=== PATIENT | female | born 1950 | race Caucasian/White ===

== ENCOUNTER 2022-09-20 13:48 | Outpatient (OUT) | payer MEDICARE, SELFPAY ==
[2022-09-20 17:07] LABS: Anion Gap 13.3; BUN Creatinine Ratio 21.9; Calcium 8.8 mg/dL (8.5-10.1); Carbon Dioxide 26.5 mmol/L (21.0-32.0); Chloride 97 mmol/L (98-107); Estimated GFR (African America >60 (>=60); Estimated GFR (Non-African Ame >60 (>=60); Glucose 83 mg/dL (74-106); Potassium 4.8 mmol/L (3.5-5.1); Sodium 132 mmol/L (136-145)
== END 2022-09-20 13:49 | disposition home or self-care (01) ==
LOC: LAB 01-11 13:50
PROVIDERS: Internal Medicine; PCP Family Medicine
DX: Z00.00 Encounter for general adult medical examination without abnormal findings (principal); R94.31 Abnormal electrocardiogram [ECG] [EKG]; Z68.23 Body mass index [BMI] 23.0-23.9, adult; I50.9 Heart failure, unspecified
CPT/HCPCS: 36415; 80048

== ENCOUNTER 2022-10-18 13:51 | Outpatient (OUT) | payer MEDICARE, SELFPAY ==
[2022-10-18 11:29] LABS: Anion Gap 11.8; BUN Creatinine Ratio 17.6; Calcium 8.9 mg/dL (8.5-10.1); Carbon Dioxide 25.7 mmol/L (21.0-32.0); Chloride 99 mmol/L (98-107); Estimated GFR (African America >60 (>=60); Estimated GFR (Non-African Ame >60 (>=60); Glucose 103 mg/dL (74-106); Potassium 4.5 mmol/L (3.5-5.1); Sodium 132 mmol/L (136-145)
== END 2022-10-18 13:52 | disposition home or self-care (01) ==
LOC: LAB 01-11 13:52
PROVIDERS: PCP Family Medicine
DX: I50.9 Heart failure, unspecified (principal); E87.6 Hypokalemia; E87.1 Hypo-osmolality and hyponatremia
CPT/HCPCS: 36415; 80048; 83880

== ENCOUNTER 2022-12-20 07:06 | Outpatient (RCR) | payer MEDICARE, SELFPAY ==
--- NOTE | 2022-08-30 | CR1_ITS ---
The [facility] Test Date: 2022-08-30 Pat Name: Arianna Briceno Department: Room: - Gender: Female [employer] Attendant: : 1950 Requested By: KEYLA TEJEDA Order Number: [id number] Efraín MD: KEYLA TEJEDA Interpretive Statements Session Date: Electronically Signed On 08-31-2022 20:58:53 EDT by KEYLA TEJEDA
--- NOTE | 2022-08-30 12:21 | CR1_ITS ---
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
--- NOTE | 2022-08-30 12:24 | CR1_ITS ---
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
--- NOTE | 2022-09-28 11:04 | CR1_ITS ---
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
--- NOTE | 2022-10-26 08:18 | CR1_ITS ---
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
--- NOTE | 2022-11-23 15:21 | CR1_ITS ---
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
== END 2022-12-20 14:50 | disposition home or self-care (01) ==
LOC: CR 07:06
PROVIDERS: PCP Internal Medicine; Visit Provider Internal Medicine
DX: I50.22 Chronic systolic (congestive) heart failure (principal)
CPT/HCPCS: 36415; 80048; 83880; 93797; 93798

== ENCOUNTER 2022-12-27 10:40 | Outpatient (OUT) | payer MEDICARE, SELFPAY ==
[2022-12-27 11:13] LABS: Anion Gap 11.7; BUN Creatinine Ratio 12.7; Calcium 8.3 mg/dL (8.5-10.1); Carbon Dioxide 21.6 mmol/L (21.0-32.0); Chloride 96 mmol/L (98-107); Estimated GFR (African America >60 (>=60); Estimated GFR (Non-African Ame >60 (>=60); Glucose 98 mg/dL (74-106); Potassium 4.3 mmol/L (3.5-5.1); Sodium 125 mmol/L (136-145)
== END 2022-12-27 10:41 | disposition home or self-care (01) ==
LOC: LAB 10:42
PROVIDERS: PCP Family Medicine
DX: I50.9 Heart failure, unspecified (principal); N18.32 Chronic kidney disease, stage 3b
CPT/HCPCS: 36415; 80048

== ENCOUNTER 2023-09-18 10:12 | Outpatient (OUT) | payer MEDICARE, SELFPAY ==
--- OUTSIDE RECORDS SUMMARY | 2023-09-18 10:20 | XMS_ITS | CCD ---
Author Organization [facility] Care Team Providers Care Director Of Physical Therapy Name Role Phone UNKNOWN, PHYSICIAN Referring Unavailable UNKNOWN, PHYSICIAN Primary Care Unavailable ADARSH FERNANDEZ Attending Unava ADARSH Perdomo Admitting Unava ilable Joe Callejas Unavailable Unavailable Unavailable MISC, DR DUNCAN Admitting Unavailable EVI MARADIAGA Primary Care Unavailable MISC, DR DUNCAN Attending Unavailable MISC, DR DUNCAN Consulting Unavailable MISC, DR DUNCAN Admitting Unavailable SHAIKH Andrew RIOS Primary Care Unavailable MISC, DR DUNCAN Attending Unavailable MISC, DR DUNCAN Consulting Unavailable ALE MOSQUERA Attending Unavailable Herber, Dr. Joe Vaughn Primary Care Unava YAHIR Ho Primary Care Provider DO Nishant Lucio Emergency Provider Dr. Ale Mosquera Attending Unavailable Demetri, Dr. Aguilera Referring Unavailable Herber, Dr. Joe Vaughn Primary Care Unava ilable Dr. Ale Mosquera Attending Unavailable Demetri, Dr. Aguilera Referring Unavailable Herber, Dr. Joe Vaughn Primary Care Nae ilDr. Ale Smith Attending Unavailable Dr. Ale Mosquera Referring Unavailable Herber, Dr. Joe Vaughn Primary Care Romava ilDr. Ale Smith Attending Unavailable Demetri, Dr. Aguilera Referring Unavailable Herber, Dr. Joe Vaughn Primary Care Unava ilable ArsenYonas hernandezbenito Unavailable Joe Callejas DO Primary Care Provider YAHIR Maradiaga Primary Care Provider DO Aleida Cisneros Emergency Provider [phone] MD Phyllis Burciaga Admit Provider MD Phyllis Burciaga Attending Provider MD Toya Pack Other Provider MD Ernesto Polo Other Provider Maile Hall Admitting Unavailable Maile Hall Attending Unavailable Evi Maradiaga Primary Care Unavailable Toya Pack Consulting Unavailable Evi Maradiaga Primary Care Unavailable Phyllis Burciaga Admitting Unavailable Phyllis Burciaga Attending Unavailable Ernesto Polo Consulting Unavailable Evi Maradiaga Primary Care Unavailable Sabrina Zapata Attending Unavailable Jonathan Bhakta Admitting Unavailable Maile Hall Consulting Unavailable Nishant Lucio Admitting Unavailable Nishant Lucio Attending Unavailable Evi Maradiaga Primary Care Unavailable ALE MOSQUERA Attending Unavailable JOE CALLEJAS Primary Care Unavailab ALE Benavides Attending Unavailable ALE MOSQUERA Referring Unavailable CLAUDIOLOLÓPEZ, JOE VAUGHN Primary Care Unavailab ALE Benavides Referring Unavailable EVI MARADIAGA Primary Care Unavailable ALE MOSQUERA Referring Unavailable MARLENE MARADIAGAE Christina Primary Care Unavailable Hiren BELL VALET-RAND CEMENTEREvi Primary Care Provid er EVI MARADIAGA Referring Unavailable MARLENE MARADIAGAE Christina Primary Care Unavailable EVI MARADIAGA Referring Unavailable EVI MARADIAGA Primary Care Unavailable IVÁN SAPP Attending Unavailable IVÁN SAPP Referring Unavailable IVÁN SAPP Attending Unavailable IVÁN SAPP Referring Unavailable IVÁN SAPP Attending Unavailable IVÁN SAPP Referring Unavailable IVÁN SAPP Attending Unavailable EVI MARADIAGA Attending Unavailable EVI MARADIAGA Referring Unavailable EVI MARADIAGA Primary Care Unavailable EVI MARADIAGA Attending Unavailable EVI MARADIAGA Referring Unavailable EVI MARADIAGA Primary Care Unavailable Medications Current Medications Medication Drug Class(es) Dates Sig (Normalized) Sig (Original) carvedilol 25 mg oral tablet (20 sources) alpha-Adrenergic Jeff, beta-Adrenergic Jeff Start: 09-19-2022 take 1 tablet by mouth in the morning, then take 1 tablet by mouth at bedtime carvediloL (COREG) 25 mg tablet Take 1 tablet (25 mg total) by mouth in the morning and 1 tablet (25 mg total) before bedtime. 0 09/20/2022 Active Start: 09-04-2022 End: 03-05-2023 take 1 tablet by mouth twice daily carvedilol (Coreg) 12.5 mg tablet Take 1 tablet (12.5 mg) by mouth 2 times a day. 0 09/04/2022 03/05/2023 Discontinued (Dose adjustment) Start: 07-04-2022 take 25 mg by mouth twice edilson y Carvedilol Active 25 MG PO Twice daily July 03, 2022 11:00pm Start: 05-04-2022 take 6.25 mg by mout h twice daily Carvedilol Active 6.25 MG PO Twice daily July 04, 2022 12:00am Start: 08-04-2021 Carvedilol 3.1 25 MG Oral Tablet Quantity: 60 Refills: 0 Ordered: 04-Aug-2021 DO Start : 04-Aug-2021 Complete take 1 tablet by sailaja th once daily in the morning carvedilol (Coreg) 25 mg tablet Take 1 tablet (25 mg) by mouth once daily in the morning. 0 Active digoxin 0.125 mg oral tablet (11 sources) Cardiac Glycoside Start: 10-16-2022 take 1 tablet by mouth once daily digoxin (LANOXIN) 125 mcg tablet TAKE 1 TABLET BY MOUTH ONCE DAILY 3 DAYS A WEEK. 0 10/16/2022 Active Start: 10-16-2022 Digoxin 125 MC G Oral Tablet TAKE 1 TABLET 3 DAYS A WEEK Quantity: 36 Refills: 3 Ordered: 14-Dec-2022 Ale Mosquera MD Start : 16-Oct-2022 Active Digoxin 125 MCG 1 tablet Orally THREE DAYS A WEEK Active hydrALAZINE hydrochloride 25 mg oral tablet (8 sources) Arteriolar Vasodilator Start: 04-05-2023 End: 04-04-2024 take 1 tablet by mouth in the morning, then take 1 tablet by mouth at bedtime hydrALAZINE (APRESOLINE) 25 mg tablet Take 1 tablet (25 mg total) by mouth in the morning and 1 tablet (25 mg total) before bedtime. 0 04/05/2023 04/04/2024 Active Start: 03-05-2023 End: 03-04-2024 take 1 tablet by mouth three times daily hydrALAZINE (Apresoline) 25 mg tablet Indications: CHF (NYHA class II, ACC/AHA stage C) (CMS/HCC) , Benign hypertensive heart disease with heart failure (CMS/HCC) Take 1 tablet (25 mg) by mouth 3 times a day. 270 tablet 3 03/05/2023 04/05/2023 Discontinued (Dose adjustment) melatonin 10 mg oral tablet (17 sources) Start: 07-04-2022 End: 03-16-2023 melatonin 10 mg tablet 1 1e1 1 [employer]. 0 07/04/2022 Active Melatonin 10 MG Oral Tablet as needed Quantity: 0 Refills: 0 Ordered: 17-Jul-2022 DO Active potassium chloride 20 meq extended release oral tablet (18 sources) Start: 03-17-2023 take 20 mEq by mouth once daily Potassium Chloride Active 20 MEQ PO Daily March 17, 2023 2:14pm Start: 03-16-2023 End: 03-17-2023 take 20 mEq by mouth twice daily Potassium Chloride Discontinued 20 MEQ PO Twice daily March 16, 2023 12:00am March 17, 2023 3:33pm Start: 07-17-2022 take 1 tablet by sailaja th in the morning potassium chloride (KLOR-CON M 20) 20 MEQ CR tablet Take 1 tablet (20 mEq total) by mouth in the morning and 1 tablet (20 mEq total) before bedtime. 0 07/17/2022 Active Start: 07-17-2022 take 1 tablet by sailaja th twice daily potassium chloride CR 20 mEq ER tablet Take 1 tablet (20 mEq) by mouth 2 times a day. 0 07/17/2022 Active take 1 tablet by sailaja th every twenty-four hours Potassium Chloride ER 20 MEQ 1 tablet with food Orally Once a day Active sertraline 50 mg oral tablet (14 sources) Serotonin Reuptake Inhibitor Start: 11-07-2022 End: 05-30-2023 take 1 tablet by mouth in the morning sertraline (ZOLOFT) 50 mg tablet Indications: Current moderate episode of major depressive disorder without prior episode ([facility]) Take 1 tablet (50 mg total) by mouth in the morning. 90 tablet 1 05/30/2023 Active Start: 06-12-2022 End: 07-08-2022 take 50 mg by mouth once daily Sertraline Discontinued 50 MG PO Daily July 03, 2022 11:00pm July 08, 2022 12:17pm simvastatin 5 mg oral tablet (1 source) HMG-CoA Reductase Inhibitor Start: 06-11-2023 take 1 tablet by mouth once daily simvastatin (ZOCOR) 5 mg tablet Indications: Mixed hyperlipidemia Take 1 tablet (5 mg total) by mouth nightly. 90 tablet 2 06/11/2023 Active Urea (1 source) Start: 01-23-2023 Urea 15 GM as directed Orally Once a day for 90 days Dec, Active Completed/Discontinued Medications Medication Drug Class(es) Dates Sig (Normalized) Sig (Original) acetaminophen 500 mg oral tablet (3 sources) Start: 07-04-2022 End: 03-16-2023 take 1000 mg by mouth twice daily Acetaminophen Discontinued 1000 MG PO Twice daily July 03, 2022 11:00pm March 16, 2023 2:35pm codeine phosphate 2 mg/ml / guaiFENesin 20 mg/ml oral solution (3 sources) Opioid Agonist Start: 05-09-2022 guaiFENesin-Codeine 100-10 MG/5ML Oral Solution Quantity: 30 Refills: 0 Ordered: 09-May-2022 DO Start : 09-May-2022 Complete furosemide 20 mg oral tablet (14 sources) Loop Diuretic Start: 09-04-2022 take 0.5 tablet by mouth once daily Furosemide 20 MG Oral Tablet TAKE 1/2 TABLET DAILY. Quantity: 45 Refills: 3 Ordered: 04-Sep-2022 Ale Mosquera MD Start : 04-Sep-2022 Active dose decrease Start: 07-08-2022 End: 03-16-2023 take 1 tablet by mouth once daily, then take 8 tablets by mouth in the morning furosemide (LASIX) 20 mg tablet TAKE 1 TABLET BY MOUTH ONCE DAILY 8 IN THE MORNING 0 07/08/2022 Active isosorbide dinitrate 10 mg oral tablet (4 sources) Nitrate Vasodilator Start: 03-05-2023 End: 03-04-2024 take 1 tablet by mouth twice daily isosorbide dinitrate (Isordil) 10 mg tablet Indications: CHF (NYHA class II, ACC/AHA stage C) (CMS/[facility]) , Benign hypertensive heart disease with heart failure (CMS/HCC) Take 1 tablet (10 mg) by mouth 2 times a day. 180 tablet 3 03/05/2023 04/05/2023 Discontinued (Side effects) nystatin 120284 unt/ml topical cream (1 source) Polyene Antifungal Start: 07-24-2022 End: 05-30-2023 nystatin (MYCOSTATIN) cream Indications: Vaginal adriana Apply 1 Application topically every 12 (twelve) hours as needed (itching). 30 g 0 07/24/2022 05/30/2023 Discontinued (Therapy completed) ondansetron 4 mg oral tablet (3 sources) Serotonin-3 Receptor Antagonist Start: 10-12-2021 Ondansetron HCl - 4 MG Oral Tablet Quantity: 20 Refills: 0 Ordered: 12-Oct-2021 DO Start : 12-Oct-2021 Complete predniSONE 10 mg oral tablet (3 sources) Start: 05-09-2022 predniSONE 10 MG Oral Tablet Quantity: 4 Refills: 0 Ordered: 09-May-2022 DO Start : 09-May-2022 Complete sodium chloride 1000 mg oral tablet (6 sources) Start: 07-04-2022 End: 07-08-2022 take 1000 mg by mouth twice daily Sodium Chloride Discontinued 1000 MG PO Twice daily July 03, 2022 11:00pm July 08, 2022 12:17pm Start: 01-11-2022 take 1 tablet by sailaja twice daily at bedtime Sodium Chloride 1 GM Oral Tablet TAKE 1 TABLET BY MOUTH TWICE DAILY (IN THE MORNING AND AT BEDTIME) Quantity: 60 Refills: 0 Ordered: 22-Jun-2022 DO Start : 11-Jan-2022 Complete spironolactone 25 mg oral tablet (7 sources) Aldosterone Antagonist Start: 07-04-2022 End: 07-08-2022 take 25 mg by mouth once daily Spironolactone Discontinued 25 MG PO Daily July 03, 2022 11:00pm July 08, 2022 12:17pm Start: 04-21-2022 Spironolactone 25 MG Oral Tablet Quantity: 90 Refills: 0 Ordered: 21-Apr-2022 DO Start : 21-Apr-2022 Complete valsartan 80 mg oral tablet (17 sources) Angiotensin 2 Receptor Jeff Start: 03-16-2023 End: 03-17-2023 take 80 mg by mouth once daily Valsartan Discontinued 80 MG PO Daily March 16, 2023 12:00am March 17, 2023 3:33pm Start: 11-03-2022 End: 05-30-2023 take 1 tablet by mouth in the morning valsartan (DIOVAN) 160 mg tablet Take 1 tablet (160 mg total) by mouth in the morning. 0 11/03/2022 05/30/2023 Discontinued (Therapy completed) Start: 08-08-2022 take 1 tablet by sailaja once daily Valsartan 160 MG Oral Tablet TAKE 1 TABLET DAILY. Quantity: 90 Refills: 3 Ordered: 08-Aug-2022 Ale Mosquera MD Start : 08-Aug-2022 Active Start: 07-17-2022 End: 03-05-2023 take 1 tablet by mouth once daily Valsartan 80 MG Oral Tablet TAKE 1 TABLET DAILY. Quantity: 90 Refills: 3 Ordered: 14-Dec-2022 Ale Mosquera MD Start : 14-Dec-2022 Active reduce dose Start: 09-01-2021 Valsartan 40 M G Oral Tablet Quantity: 180 Refills: 0 Ordered: 01-Sep-2021 DO Start : 01-Sep-2021 Complete take 2 tablets by mo [facility] every twenty-four hours Valsartan 80 MG 2 tablet Orally Once a day Active Problems Active Problems Problem Classification Problem Date Documented Date Episodic/Chronic Abdominal pain (3 sources) Flank pain; Translations: [Unspecified abdominal pain] Onset: 05-30-2023 05-30-2023 Episodic Acute myocardial infarction (3 sources) Myocardial infarction; Translations: [Non-ST elevation (NSTEMI) myocardial infarction] Onset: 10-11-2021 10-11-2021 Chronic Bacterial infection; unspecified site (1 source) Other specified bacterial agents as the cause of diseases classified elsewhere; Translations: [Other specified bacterial agents as the cause of diseases classified elsewhere] Onset: 08-01-2023 Episodic Cardiac dysrhythmias (4 sources) Ventricular tachycardia; Translations: [Ventricular tachycardia] 07-24-2022 Chronic Chronic kidney disease (8 sources) Chronic kidney disease stage 3B ; Translations: [Chronic kidney disease, Stage III (moderate)] Onset: 03-02-2023 03-02-2023 Chronic Chronic kidney disease (3 sources) Chronic kidney disease; Translations: [Chronic kidney disease, stage 3b (CMS/HCC)] Onset: 03-02-2023 Conduction disorders (12 sources) Left bundle branch block; Translations: [Other left bundle branch block] Onset: 07-25-2021 03-05-2023 Chronic Congestive heart failure; nonhypertensive (20 sources) Congestive heart failure; Translations: [Systolic heart failure, unspecified] Onset: 10-27-2021 Chronic Coronary atherosclerosis and other heart disease (8 sources) Arteriosclerotic vascular disease; Translations: [Atherosclerotic heart disease of [place] coronary artery without angina pectoris] Onset: 10-27-2021 10-27-2021 Chronic Deficiency and other anemia (1 source) Anemia, unspecified Episodic Disorders of lipid metabolism (4 sources) Mixed hyperlipidemia; Translations: [Mixed hyperlipidemia] Onset: 05-30-2023 05-30-2023 Chronic Essential hypertension (11 sources) Hypertensive disorder; Translations: [Unspecified essential hypertension] Onset: 03-16-2023 03-17-2023 Chronic Headache; including migraine (3 sources) Headache; Translations: [Headache] 07-04-2022 Episodic Headache; including migraine (1 source) Headache; including migraine; Translations: [Headache, unspecified] Onset: 07-05-2022 Hypertension with complications and secondary hypertension (13 sources) Hypertensive heart disease with heart failure; Translations: [Benign hypertensive heart disease] Onset: 08-14-2022 Chronic Mood disorders (8 sources) Depressive disorder; Translations: [Depression] Onset: 07-24-2022 07-06-2022 Chronic Other aftercare (12 sources) Treatment changed; Translations: [Long-term (current) use of other medications] Onset: 03-05-2023 03-05-2023 Episodic Other aftercare (1 source) Post-discharge follow-up; Translations: [Other follow-up examination] Episodic Other aftercare (3 sources) Other residential (current) drug therapy; Translations: [Other residential (current) drug therapy] Onset: 03-05-2023 Episodic Other lower respiratory disease (1 source) Cough Onset: 08-01-2023 Episodic Other nutritional; endocrine; and metabolic disorders (3 sources) Hypomagnesemia; Translations: [Hypomagnesemia] Onset: 10-11-2021 10-11-2021 Chronic Other nutritional; endocrine; and metabolic disorders (3 sources) H/O: endocrine disorder; Translations: [Personal history of other endocrine, nutritional and metabolic disease] 07-06-2022 Episodic Other upper respiratory infections (2 sources) Acute sinusitis, unspecified; Translations: [Upper respiratory infection] Onset: 08-01-2023 Episodic Puja-; endo-; and myocarditis; cardiomyopathy (except that caused by tuberculosis or sexually transmitted disease) (6 sources) Cardiomyopathy; Translations: [Cardiomyopathy, unspecified] Onset: 07-07-2021 07-07-2021 Chronic Residual codes; unclassified (9 sources) Body mass index 20-24 - normal; Translations: [Body Mass Index between 19-24, adult] Episodic Residual codes; unclassified (3 sources) Confusional state; Translations: [Disorientation, unspecified] 07-04-2022 Episodic Syncope (5 sources) Near syncope; Translations: [Syncope and collapse] Onset: 03-16-2023 03-16-2023 Episodic Unclassified (1 source) Acute cough; Translations: [Acute cough] Onset: 08-01-2023 Unclassified (1 source) Ventricular tachycardia, unspecified; Translations: [Ventricular tachycardia, unspecified] Onset: 07-24-2022 Unclassified (1 source) Annual Exam Onset: 05-30-2023 Urinary tract infections (1 source) Acute cystitis without hematuria; Translations: [Acute cystitis without hematuria] Onset: 05-30-2023 Episodic Past or Other Problems Problem Classification Problem Date Documented Date Episodic/Chronic Fluid and electrolyte disorders (20 sources) Hyponatremia; Translations: [Hyposmolality and/or hyponatremia] Onset: 12-11-2021 Resolved: 05-30-2023 07-04-2022 Episodic Malaise and fatigue (6 sources) Asthenia; Translations: [Weakness] Onset: 07-05-2022 11-08-2022 Episodic Mood disorders (4 sources) Mood disorders; Translations: [Depression, unspecified] Onset: 07-05-2022 05-30-2023 Nausea and vomiting (3 sources) Nausea and vomiting; Translations: [Nausea with vomiting, unspecified] Onset: 10-10-2021 Resolved: 05-30-2023 05-30-2023 Episodic Nonspecific chest pain (3 sources) Chest pain; Translations: [Chest pain, unspecified] Onset: 10-10-2021 Resolved: 05-30-2023 05-30-2023 Episodic Other nutritional; endocrine; and metabolic disorders (1 source) Personal history of other endocrine, nutritional and metabolic disease; Translations: [Personal history of other endocrine, nutritional and metabolic disease] Onset: 08-09-2022 Episodic Other screening for suspected conditions (not mental disorders or infectious disease) (17 sources) Electrocardiogram abnormal; Translations: [Nonspecific abnormal electrocardiogram [ECG] [EKG]] Onset: 10-10-2021 Resolved: 05-30-2023 03-02-2023 Episodic Residual codes; unclassified (1 source) Disorientation, unspecified; Translations: [Disorientation, unspecified] Onset: 07-05-2022 Episodic Unclassified (9 sources) Patient status finding; Translations: [Patient new to provider] Unclassified (9 sources) Never smoked tobacco; Translations: [Never a smoker] Unclassified (5 sources) Onset: 05-09-2022 Resolved: 03-05-2023 03-05-2023 Results Test Name Value Interpretation Reference Range Facility Lipid 1996 panelon Cholesterol [Mass/Vol] 232 mg/dL High 150-200 Pr [facility] Comment on above: Performed By: #### 2 4331-1 #### [facility] ([id number]) [address] [place] [address], [address] [place] [address] Cholesterol in HDL [Mass/Vol] 60 mg/dL Normal >39 [facility] Comment on above: HDL <40 mg/dL - High Risk HDL > or = 40mg/dL- Desirable HDL >60 mg/dL - Negative Risk Result Comment: HDL <40 mg/dL - High Risk HDL > or = 40mg/dL- Desirable HDL >60 mg/dL - Negative Risk Performed By: #### 2 4331-1 #### [facility] ([id number]) [address] [facility] [address], [address] [place] [address] Cholesterol in LDL [Mass/Vol] 152 mg/dL High <130 [facility] Comment on above: LDL <100 mg/dL - Desirable LDL >160 mg/dL - High Risk Result Comment: LDL <100 mg/dL - Desirable LDL >160 mg/dL - High Risk Performed By: #### 2 4331-1 #### [facility] ([id number]) [facility] [facility] [address], [address] [place] [address] Cholesterol in VLDL [Mass/Vol] 20 mg/dL Normal 0-30 [facility] Comment on above: Performed By: #### 2 4331-1 #### [facility] ([id number]) [address] [facility], [address] [place] [address] Cholesterol.total/Chol esterol in HDL [Mass ratio] 3.9 {ratio} 1.0 - 5.0 [facility] Interpretation and review of laboratory results Abnormal [facility] Triglyceride [Mass/Vol] 98 mg/dL Normal 27-150 [facility] Comment on above: Performed By: #### 2 4331-1 #### [facility] ([id number]) [address] [facility] [facility] [address], [facility] [address] [place] [address] [facility] Lipid 1996 panelon CHOLESTEROL:HDL 3.9 Normal 1.0-5.0 [facility] Comment on above: Performed By: #### 2 4331-1 #### [facility] ([id number]) [address], [address] [place] [address] POCT urinalysis dipstick onl yon 05-30-2023 Appearance (U) clear [facility] External Poct Urine Bilirubin Negative [facility]ct Urine Blood Negative [facility]ct Urine Color yellow [facility] Urine Glucose Negative [facility]ct Urine Ketones Negative [facility] Urine Leukocyte Esterase Trace [facility] Urine Nitrite Negative [facility]ct Urine Ph 6.5 Pr [facility] External Poct Urine Protein Negative [facility] Poct Urine Specific [place] 1.010 [facility] External Poct Urine Urobilinogen 0.2 [facility] URINE CULTUREon 05-30-2023 Bacteria identified Cx Nom (U) CULTURE RESULTS 10-50,000 ORGANISMS/mL NORMAL UROGENITAL YINA Normal [facility] Comment on above: Performed By: #### 6 30-4 #### [facility] ([id number]) [address], [address] [place] [address] BASIC METABOLIC PANLon 05-01 Anion gap [Moles/Vol] 8 mmol/L Normal 5-15 [facility] Comment on above: Performed By: #### B MP #### [facility] ([id number]) [address], [address] [place] [address] Calcium [Mass/Vol] 9.2 mg/dL Normal 8.5-10.5 [facility] Comment on above: Performed By: #### B MP #### [facility] ([id number]) [address], [address] [place] [address] Chloride [Moles/Vol] 97 mmol/L Low 98-109 [facility] Comment on above: Performed By: #### B MP #### [facility] ([id number]) [address], [address] [place] [address] CO2 [Moles/Vol] 23 mmol/L Normal 22-32 [facility] Comment on above: Performed By: #### B MP #### [facility] ([id number]) [address], [address] [place] [address] Creatinine [Mass/Vol] 0.64 mg/dL Normal 0.40-1.00 [facility] Comment on above: Result Comment: METH OD TRACEABLE TO IDMS STANDARD Performed By: #### B MP #### [facility] ([id number]) [address], [address] [place] [address] eGFR (CKD-EPI) NON-RACE DEPENDENT >90 Normal >59 [facility] Comment on above: Result Comment: Reported eGFR is based on the CKD-EPI 2020 equation that does not use a race coefficient. Performed By: #### B MP #### [facility] ([id number]) [address], [address] [place] [address] Glucose [Mass/Vol] 93 mg/dL Normal 65-99 [facility] Comment on above: Performed By: #### B MP #### [facility] ([id number]) [address], [address] [place] [address] Potassium [Moles/Vol] 4.4 mmol/L Normal 3.5-5.0 [facility] Comment on above: Performed By: #### B MP #### [facility] ([id number]) [address], [address] [place] [address] Sodium [Moles/Vol] 128 mmol/L Low 134-146 [facility] Comment on above: Performed By: #### B MP #### [facility] ([id number]) [address], [address] [place] [address] Urea nitrogen [Mass/Vol] 7 mg/dL Normal 5-27 [facility] Comment on above: Performed By: #### B MP #### [facility] ([id number]) [address], [address] [place] [address] BASIC METABOLIC PANLon 03-29 Anion gap [Moles/Vol] 8 mmol/L Normal 5-15 [facility] Comment on above: Performed By: #### B MP #### [facility] ([id number]) [address], [address] [place] [address] Calcium [Mass/Vol] 8.9 mg/dL Normal 8.5-10.5 [facility] Comment on above: Performed By: #### B MP #### [facility] ([id number]) [address], [address] [place] [address] Chloride [Moles/Vol] 101 mmol/L Normal 98-109 [facility] Comment on above: Performed By: #### B MP #### [facility] ([id number]) [address], [address] [place] [address] CO2 [Moles/Vol] 25 mmol/L Normal 22-32 [facility] Comment on above: Performed By: #### B MP #### [facility] ([id number]) [address], [address] [place] [address] Creatinine [Mass/Vol] 0.64 mg/dL Normal 0.40-1.00 [facility] Comment on above: Result Comment: METH OD TRACEABLE TO IDMS STANDARD Performed By: #### B MP #### [facility] ([id number]) [address], [address] [place] [address] eGFR (CKD-EPI) NON-RACE DEPENDENT >90 Normal >59 [facility] Comment on above: Result Comment: Reported eGFR is based on the CKD-EPI 2020 equation that does not use a race coefficient. Performed By: #### B MP #### [facility] ([id number]) [address], [address] [place] [address] Glucose [Mass/Vol] 96 mg/dL Normal 65-99 [facility] Comment on above: Performed By: #### B MP #### [facility] ([id number]) [address], [address] [place] [address] Potassium [Moles/Vol] 4.3 mmol/L Normal 3.5-5.0 [facility] Comment on above: Performed By: #### B MP #### [facility] ([id number]) [address], [address] [place] [address] Sodium [Moles/Vol] 134 mmol/L Normal 134-146 [facility] Comment on above: Performed By: #### B MP #### [facility] ([id number]) [address], [address] [place] [address] Urea nitrogen [Mass/Vol] 8 mg/dL Normal 5-27 [facility] Comment on above: Performed By: #### B MP #### [facility] ([id number]) [address], [address] [place] [address] Automated basophil %Ordered By: Phyllis Burciaga on 03-17-2023 Basophils/100 WBC (Bld) 0.7 % Normal . [facility] Comment on above: Performed By: #### B MP, CBC #### [facility] [address] Automated basophil countOrde red By: Phyllis Burciaga on 03-17-2023 Basophils (Bld) [#/Vol] 0.0 10*3/uL Normal 0.0-0.2 [facility] Comment on above: Result Comment: PERF ORMED BY: [facility] [address] [place] [address] PATHOLOGIST PHP LAMP DEVELOPER KD ELLISON M.D. Performed By: #### B MP, CBC #### [address] Automated blood monocyte cou ntOrdered By: Phyllis Burciaga on 03-17-2023 Monocytes (Bld) [#/Vol] 0.8 10*3/uL Normal 0.0-0.8 [facility] Comment on above: Performed By: #### B MP, CBC #### [address] Automated eosinophil %Ordere d By: Phylliskiana Burciaga on 03-17-2023 Eosinophils/100 WBC (Bld) 1.3 % Normal . [facility] Comment on above: Performed By: #### B MP, CBC #### [address] Automated eosinophil countOr dered By: Phyllis Burciaga on 03-17-2023 Eosinophils (Bld) [#/Vol] 0.1 10*3/uL Normal 0.0-0.45 [facility] Comment on above: Performed By: #### B MP, CBC #### [address] Automated monocyte %Ordered By: Phyllis Burciaga on 03-17-2023 Monocytes/100 WBC (Bld) 11.3 % Normal . [facility] Comment on above: Performed By: #### B MP, CBC #### [address] Automated neutrophil %Ordere d By: Phyllis Burciaga on 03-17-2023 Neutrophils/100 WBC (Bld) 65.1 % Normal . [facility] Comment on above: Performed By: #### B MP, CBC #### [address] Basic Metabolic Panelon 12-2 Creatinine Clr Calc Pharmacy 52.06 Normal [facility] Comment on above: Result Comment: PERF ORMED BY: [place] [phone] PATHOLOGIST PHP L[employer] DEVELOPER KD ELLISON M.D. Performed By: #### B MP, CBC #### [place] [address] [place] GFR/1.73 sq M.predicted MDRD (S/P/Bld) [Vol rate/Area] mL/min/{1.73_m2} Normal [facility] Comment on above: Performed By: #### B MP, CBC #### [place] [address] [place] Calcium [Mass/volume] in Ser um or PlasmaOrdered By: Phyllis Gualberto on 03-17-2023 Calcium [Mass/Vol] 8.6 mg/dL Normal 8.6-10.3 [facility] Comment on above: Performed By: #### B MP, CBC #### [address] Carbon dioxide, total [Moles /volume] in Serum or PlasmaOrdered By: Phyllis Burciaga on 03-17-2023 CO2 [Moles/Vol] 21.8 mmol/L Normal 21.0-31.0 [facility] Comment on above: Performed By: #### B MP, CBC #### [place] [address] [place] Chloride [Moles/volume] in S joon or PlasmaOrdered By: Phyllis Burciaga on 03-17-2023 Chloride [Moles/Vol] 102 mmol/L Normal 98-107 [facility] Comment on above: Performed By: #### B MP, CBC #### [address] Complete Blood Count Auto Di ffon 03-17-2023 Mean Corpuscular HGB Conc 34.2 g/dL Normal 32.0-35.0 [facility] Comment on above: Performed By: #### B MP, CBC #### [place] [address] [place] NRBC% 0.1 /100{WBC} Normal 0-0.5 [facility] Comment on above: Performed By: #### B MP, CBC #### [facility] [address] Creatinine [Mass/volume] in Serum or PlasmaOrdered By: Phyllis Burciaga on 03-17-2023 Creatinine [Mass/Vol] 0.62 mg/dL Normal 0.60-1.[address] [facility] Comment on above: Performed By: #### B MP, CBC #### [facility] [address] ECG 12 lead ECGon 03-17-2023 ECG 12 lead ECG [facility] [place] [address] [place] [address] Electrocardiograph Report Signed Patient: Arianna Martinez MR#: [id number] [birth year] : 1950 Acct:[id number] Age/Sex: 72 / F ADM Date: 03/16/23 Loc: Room: [address] [place] [address] Type: ADM INOo Attending Dr: Phyllis Burciaga MD Ordering Provider: Phyllis Burciaga MD Date of Service: 03/17/23 ECG/ECG 12 lead ECG: abn Copies to: Test Reason : Blood Pressure : / mmHG Vent. Rate : 061 BPM Atrial Rate : 061 BPM P-R Int : 194 ms QRS Dur : 148 ms QT Int : 452 ms P-R-T Axes : 040 -51 081 degrees QTc Int : 455 ms Normal sinus rhythm Left axis deviation Left bundle branch block Abnormal ECG When compared with ECG of 16-MAR-2023 13:39, (Unconfirmed) premature ventricular complexes are no longer present Confirmed by [facility] ([id number]) on 03/17/2023 3:24:55 PM Referred By: Electronically Signed By:ALEIDA ISBELL MD FACC Transcribed By: MUS Signed By Maxim Isbell MD 03/17/23 1525 Normal [facility] Erythrocyte distribution wid th [Ratio] by Automated countOrdered By: Phyllis Burciaga on 03-17-2023 Erythrocyte distribution width (RBC) [Ratio] 13.2 % Normal 11.9-15.3 [facility] Comment on above: Performed By: #### B MP, CBC #### [facility] [address] [place] [address] [place] Erythrocytes [#/volume] in B lood by Automated countOrdered By: Phyllis Burciaga on 03-17-2023 RBC (Bld) [#/Vol] 3.56 10*6/uL Low 3.60-5.00 [facility] Comment on above: Performed By: #### B MP, CBC #### [facility] [address] [place] [address] [place] Glucose [Mass/volume] in Ser um or PlasmaOrdered By: Phyllis Burciaga on 03-17-2023 Glucose [Mass/Vol] 97 mg/dL Normal 70-100 [facility] Comment on above: ADA recommended refe rence rangeRandom Glucose Reference Range is dependent on time and content of last meal. Glucose of more than 200 mg/dL in a nonstressed, ambulatory subject supports the diagnosis of Diabetes Mellitus. Result Comment: [place] om Glucose Reference Range is dependent on time and content of last meal. Glucose of more than 200 mg/dL in a nonstressed, ambulatory subject supports the diagnosis of Diabetes Mellitus. ADA recommended reference range Performed By: #### B MP, CBC #### [facility] [address] [place] [address] [place] Hematocrit [Volume Fraction] of Blood by Automated countOrdered By: Phyllis Burciaga on 03-17-2023 Hematocrit (Bld) [Volume fraction] 32.2 % Low 34.0-46.4 [facility] Comment on above: Performed By: #### B MP, CBC #### [facility] [address] [place] [address] [place] Hemoglobin [Mass/volume] in BloodOrdered By: Phyllis Burciaga on 03-17-2023 Hemoglobin (Bld) [Mass/Vol] 11.0 g/dL Low 11.8-15.4 [facility] Comment on above: Performed By: #### B MP, CBC #### [facility] [address] [place] [address] [place] Leukocytes [#/volume] correc brien for nucleated erythrocytes in Blood by Automated counOrdered By: Phyllis Burciaga on 03-17-2023 WBC corrected for nucl RBC Auto (Bld) [#/Vol] 7.1 10*3/uL 3.8-11.6 [facility] Leukocytes [#/volume] in Blo od by Automated countOrdered By: Phyllis Burciaga on 03-17-2023 WBC (Bld) [#/Vol] 7.1 10*3/uL Normal 3.8-11.6 [facility] Comment on above: Performed By: #### B MP, CBC #### [facility] [address] [place] [address] Lymphocytes [#/volume] in Bl ood by Automated countOrdered By: Phyllis Burciaga on 03-17-2023 Lymphocytes (Bld) [#/Vol] 1.5 10*3/uL Normal 1.00-4.8 [facility] Comment on above: Performed By: #### B MP, CBC #### [facility] [address] Lymphocytes/100 leukocytes i n Blood by Automated countOrdered By: Phyllis Burciaga on 03-17-2023 Lymphocytes/100 WBC (Bld) 21.6 % Normal . [facility] Comment on above: Performed By: #### B MP, CBC #### [facility] [address] [place] [address] MCH [Entitic mass] by Automa brien countOrdered By: Phyllis Burciaga on 03-17-2023 MCH (RBC) [Entitic mass] 30.9 pg Normal 24.7-34.3 [facility] Comment on above: Performed By: #### B MP, CBC #### [facility] [address] [place] [address] MCHC Auto (RBC) [Mass/Vol]Or dered By: Phyllis Burciaga on 03-17-2023 MCHC (RBC) [Mass/Vol] 34.2 g/dL 32.0-35.[address] [facility] MCV [Entitic volume] by Auto mated countOrdered By: Phyllis Burciaga on 03-17-2023 MCV (RBC) [Entitic vol] 90.6 fL Normal 80-100 [facility] Comment on above: Performed By: #### B MP, CBC #### [address] Neutrophils [#/volume] in Bl ood by Automated countOrdered By: Phyllis Burciaga on 03-17-2023 Neutrophils (Bld) [#/Vol] 4.6 10*3/uL Normal 1.8-7.7 [facility] Comment on above: Performed By: #### B MP, CBC #### [facility] [address] [place] [address] No Panel InformationOrdered By: Phyllis Burciaga on 03-17-2023 Estimated GFR (CKD-EPI) > 60.0 mL/Min [facility] Creatinine Clearance (Chem 52.06 [facility] Nucleated erythrocytes [Pres ence] in Blood by Automated countOrdered By: Phyllis Burciaga on 03-17-2023 Nucleated RBC Auto Ql (Bld) 0.1 /100{WBC} 0-0.5 [facility] Platelet mean volume [Entiti c volume] in Blood by Automated countOrdered By: Phyllis Burciaga on 03-17-2023 Platelet mean volume (Bld) [Entitic vol] 6.9 fL Normal 6.3-10.7 [facility] Comment on above: Performed By: #### B MP, CBC #### [facility] [address] [place] [address] Platelets [#/volume] in Bloo d by Automated countOrdered By: Phyllis Burciaga on 03-17-2023 Platelets (Bld) [#/Vol] 341 10*3/uL Normal 150-450 [facility] Comment on above: Performed By: #### B MP, CBC #### [address] Potassium [Moles/volume] in Serum or PlasmaOrdered By: Phyllis Burciaga on 03-17-2023 Potassium [Moles/Vol] 4.1 mmol/L Normal 3.5-5.[address] [facility] Comment on above: Performed By: #### B MP, CBC #### [facility] [address] [place] [address] Serum or plasma anion gap de terminationOrdered By: Phyllis Gualberto on 03-17-2023 Anion gap [Moles/Vol] 10.3 mmol/L Normal 6.0-15.0 [facility] Comment on above: Performed By: #### B MP, CBC #### [facility] [address] [place] [address] Sodium [Moles/volume] in Ser um or PlasmaOrdered By: Phyllis Burciaga on 03-17-2023 Sodium [Moles/Vol] 130 mmol/L Low 136-145 [facility] Comment on above: Performed By: #### B MP, CBC #### [facility] [address] [place] [address] Urea nitrogen [Mass/volume] in Serum or PlasmaOrdered By: Phyllis Gualberto on 03-17-2023 Urea nitrogen [Mass/Vol] 8 mg/dL Normal 7-25 [facility] Comment on above: Performed By: #### B MP, CBC #### [facility] [address] [place] [address] Alanine aminotransferase [En zymatic activity/volume] in Serum or PlasmaOrdered By: Thea Eisenberg on 03-16-2023 ALT [Catalytic activity/Vol] 11 U/L 7-52 [facility] Albumin [Mass/volume] in Ser um or Plasma by Bromocresol green (BCG) dye binding methoOrdered By: Thea Eisenberg on 03-16-2023 Albumin BCG dye [Mass/Vol] 4.8 g/dL 3.5-5.7 [facility] Alkaline phosphatase [Enzyma tic activity/volume] in Serum or PlasmaOrdered By: Thea Eisenberg on 03-16-2023 ALP [Catalytic activity/Vol] 82 U/L 34-104 [facility] Aspartate aminotransferase [ Enzymatic activity/volume] in Serum or PlasmaOrdered By: Thea Eisenberg on 03-16-2023 AST [Catalytic activity/Vol] 17 U/L 13-39 [facility] Automated erythrocytes count in urine sediment (number/area)Ordered By: Thea Eisenberg on 03-16-2023 RBC Auto (Urine sed) [#/Area] 1-2 [HPF] 0-4 [facility] Automated leukocytes count i n urine sediment (number/area)Ordered By: Thea Eisenberg on 03-16-2023 WBC Auto (Urine sed) [#/Area] 1-2 [HPF] 0-4 [facility] B-Type Natriuretic Peptideon 03-16-2023 Natriuretic peptide B (Bld) [Mass/Vol] 34.0 pg/mL Normal 5-100 [facility] Comment on above: Result Comment: PERF ORMED BY: [place] [address] PATHOLOGIST PHP LAMP DEVELOPER KD ELLISON M.D. Performed By: #### O SMO #### [address] Basophils Auto (Bld) [#/Vol] Ordered By: Thea Eisenberg on 03-16-2023 Basophils (Bld) [#/Vol] 0.1 10*3/uL 0.0-0.2 [facility] Basophils/100 WBC Auto (Bld) Ordered By: [facility] 03-16-[facility] Basophils/100 WBC (Bld) 0.5 % . [facility] Bilirubin Test strip Ql (U)O rdered By: Thea Eisenberg on 03-16-2023 Bilirubin Ql (U) Negative Negative [facility] Bilirubin.total [Mass/volume ] in Serum or PlasmaOrdered By: Thea Eisenberg on 03-16-2023 Bilirubin [Mass/Vol] 0.6 mg/dL 0.3-1.0 [facility] COVID CepheidOrdered By: Alexa Eisenberg on 03-16-2023 SARS-CoV-2 (COVID-19) Ab IA Ql Negative Negative [facility] Comment on above: This is a duplicate Cepheid Xpert Xpress CoV-2/Flu/RSV Plus RNA by RT-PCR result to be used for statistical tracking purpose only. SARS-CoV-2 (COVID-19) RNA ALEX+probe Ql (Unsp spec) [facility] COVID-19 / Flu A/B / RSV PCR on 03-16-2023 SARS-CoV-2 (COVID-19) RNA ALEX+probe Ql (Unsp spec) COVID-19 Cepheid Result Negative for SARS-CoV-2 RNA by RT-PCR Flu A Cepheid Result Negative for Flu A RNA by RT-PCR Flu B Cepheid Result Negative for Flu B RNA by RT-PCR RSV Cepheid Result Negative for RSV RNA by RT-PCR COVID19 Blank Space -- Reference: Negative COVID19 Blank Space -- Cepheid Disclaimer The Cepheid Xpert Xpress CoV-2/Flu/RSV Plus has Cepheid Disclaimer not been FDA cleared or approved; this test has Cepheid Disclaimer been authorized by FDA under an EUA for use by Cepheid Disclaimer authorized laboratories; this test has been Cepheid Disclaimer authorized only for the simultaneous qualitative Cepheid Disclaimer detection and differentiation of nucleic acids from Cepheid Disclaimer SARS-CoV-2, influenza A, influenza B, and Cepheid Disclaimer respiratory syncytial virus (RSV), and not for any Cepheid Disclaimer other viruses or pathogens; and this test is only Cepheid Disclaimer authorized for the duration of the declaration that Cepheid Disclaimer circumstances exist justifying the authorization of Cepheid Disclaimer emergency use of in vitro diagnostic tests for Cepheid Disclaimer detection and/or diagnosis of COVID-19 under Cepheid Disclaimer Section 564(b)(1) of the Act, 21 U.S.C. 360bbb- Cepheid Disclaimer 3(b)(1), unless the authorization is terminated or Cepheid Disclaimer revoked sooner. PERFORMED BY: [place] [address] PATHOLOGIST PHP LAMP DEVELOPER KD ELLISON M.D. [facility] Comment on above: Performed By: #### M G, BMP, CBC #### [address] head/brain wo conon 03-16 CT head/brain wo con [facility] [place] [address] [place] [address] CT Scan Report Signed Patient: Arianna Martinez MR#: [id number] 36 : 1950 Acct:[id number] Age/Sex: 72 / F ADM Date: 03/16/23 Loc: ER Room: Type: PRE ER Attending Dr: Copies to: Thea Eisenberg APRN Ordering Provider: Thea Eisenberg APRN Date of Service: 03/16/23 CT/CT head/brain wo con: headache Unenhanced head CT TECHNIQUE: Contiguous axial imaging of the head. The CT exam was performed using one or more the following dose reduction techniques: Automated exposure control, adjustment of the MA and/or Kv according to patient size, or use of the iterative reconstruction technique. COMPARISON: 11/08/2022 HISTORY: Syncopal episode. Dizziness. VENTRICLES: Within normal limits ATROPHY: Mild atrophy BRAIN PARENCHYMA: Decreased density of the white matter is most consistent with chronic small vessel disease. HEMORRHAGE: None HERNIATION: No mass effect or herniation INFARCTION: No recent vascular distribution infarction is seen. EXTRA-AXIAL FLUID COLLECTIONS None MIDBRAIN: Unremarkable CAMPBELL: Unremarkable MEDULLA: Unremarkable SINUSES: Unremarkable ORBITS: Grossly unremarkable MASTOIDS: Unremarkable BONY STRUCTURES Intact ADDITIONAL FINDINGS: Atherosclerosis of the carotid siphons. CT/CT head/brain wo con IMPRESSION: No acute findings. Impression dictated by: Darryn Brown M.D.03/16/2023 3:44 PM Dictation Location: [place] [address] Transcribed By: [facility] 03/16/23 9190 Dictated By: Darryn Brown DO 03/16/23 1541 Signed By: 03/16/23 1544 Normal [facility] Calcium [Mass/volume] in Ser um or PlasmaOrdered By: Thea Eisenberg on 03-16-2023 Calcium [Mass/Vol] 9.4 mg/dL 8.6-10.3 [facility] Carbon dioxide, total [Moles /volume] in Serum or PlasmaOrdered By: Thea Eisenberg on 03-16-2023 CO2 [Moles/Vol] 22.7 mmol/L 21.0-31.0 [facility] Cepheid COVID PCR Negativeon 03-16-2023 SARS-CoV-2 (COVID-19) RNA ALEX+probe Ql (Unsp spec) Negative Normal Negative [facility] Comment on above: Result Comment: This is a duplicate [employer]epNano [employer] Xpert Xpress CoV-2/Flu/RSV Plus RNA by RT-PCR result to be used for statistical tracking purpose only. PERFORMED BY: [facility] [address] [facility] [address] PATHOLOGIST PHP LAMP DEVELOPER KD ELLISON M.D. Performed By: #### O SMO #### [facility] [address] [place] [address] [place] Chloride [Moles/volume] in S joon or PlasmaOrdered By: Thea Eisenberg on 03-16-2023 Chloride [Moles/Vol] 98 mmol/L 98-107 [facility] Color Auto (U)Ordered By: Yuliya cunningham [facility] on 03-16-2023 Color (U) Yellow Yellow [facility] Complete Blood Count Auto Di ffon 03-16-2023 Basophils (Bld) [#/Vol] 0.1 10*3/uL Normal 0.0-0.2 [facility] Comment on above: Result Comment: PERF ORMED BY: [facility] [address] [place] [address] PATHOLOGIST PHP LAMP DEVELOPER KD ELLISON M.D. Performed By: #### H S TROP, CK, CMP, CBC #### [facility] [address] [place] [address] [place] Basophils/100 WBC (Bld) 0.5 % Normal . [facility] Comment on above: Performed By: #### H S TROP, CK, CMP, CBC #### [address] Eosinophils (Bld) [#/Vol] 0.1 10*3/uL Normal 0.0-0.45 [facility] Comment on above: Performed By: #### H S TROP, CK, CMP, CBC #### [address] Eosinophils/100 WBC (Bld) 0.6 % Normal . [facility] Comment on above: Performed By: #### H S TROP, CK, CMP, CBC #### [address] Erythrocyte distribution width (RBC) [Ratio] 13.4 % Normal 11.9-15.3 [facility] Comment on above: Performed By: #### H S TROP, CK, CMP, CBC #### [address] Hematocrit (Bld) [Volume fraction] 38.1 % Normal 34.0-46.4 [facility] Comment on above: Performed By: #### H S TROP, CK, CMP, CBC #### [address] Hemoglobin (Bld) [Mass/Vol] 12.9 g/dL Normal 11.8-15.4 [facility] Comment on above: Performed By: #### H S TROP, CK, CMP, CBC #### [address] Lymphocytes (Bld) [#/Vol] 1.6 10*3/uL Normal 1.00-4.8 [facility] Comment on above: Performed By: #### H S TROP, CK, CMP, CBC #### [address] Lymphocytes/100 WBC (Bld) 14.2 % Normal . [facility] Comment on above: Performed By: #### H S TROP, CK, CMP, CBC #### [place] [address] MCH (RBC) [Entitic mass] 31.0 pg Normal 24.7-34.3 [facility] Comment on above: Performed By: #### H S TROP, CK, CMP, CBC #### [address] MCV (RBC) [Entitic vol] 91.5 fL Normal 80-100 [facility] Comment on above: Performed By: #### H S TROP, CK, CMP, CBC #### [address] Mean Corpuscular HGB Conc 33.8 g/dL Normal 32.0-35.0 [facility] Comment on above: Performed By: #### H S TROP, CK, CMP, CBC #### [address] Monocytes (Bld) [#/Vol] 0.6 10*3/uL Normal 0.0-0.8 [facility] Comment on above: Performed By: #### H S TROP, CK, CMP, CBC #### [address] Monocytes/100 WBC (Bld) 18.90 % Normal 0.00-20.00 [facility] Comment on above: Performed By: #### H S TROP, CK, CMP, CBC #### [address] Monocytes/100 WBC (Bld) 5.8 % Normal . [facility] Comment on above: Performed By: #### H S TROP, CK, CMP, CBC #### [address] Neutrophils (Bld) [#/Vol] 8.6 10*3/uL High 1.8-7.7 [facility] Comment on above: Performed By: #### H S TROP, CK, CMP, CBC #### [place] [address] [place] Neutrophils/100 WBC (Bld) 78.9 % Normal . [facility] Comment on above: Performed By: #### H S TROP, CK, CMP, CBC #### [address] NRBC% 0.2 /100{WBC} Normal 0-0.5 [facility] Comment on above: Performed By: #### H S TROP, CK, CMP, CBC #### [address] Platelet mean volume (Bld) [Entitic vol] 7.1 fL Normal 6.3-10.7 [facility] Comment on above: Performed By: #### H S TROP, CK, CMP, CBC #### [address] Platelets (Bld) [#/Vol] 396 10*3/uL Normal 150-450 [facility] Comment on above: Performed By: #### H S TROP, CK, CMP, CBC #### [address] RBC (Bld) [#/Vol] 4.16 10*6/uL Normal 3.60-5.00 [facility] Comment on above: Performed By: #### H S TROP, CK, CMP, CBC #### [address] WBC (Bld) [#/Vol] 10.9 10*3/uL Normal 3.8-11.6 [facility] Comment on above: Performed By: #### H S TROP, CK, CMP, CBC #### [address] Comprehensive Metabolic Pane jazmine 03-16-2023 Albumin [Mass/Vol] 4.8 g/dL Normal 3.5-5.7 [facility] Comment on above: Performed By: #### H S TROP, CK, CMP, CBC #### [address] Albumin/Globulin [Mass ratio] 1.6 {ratio} Normal [facility] Comment on above: Performed By: #### H S TROP, CK, CMP, CBC #### [facility] [address] ALP [Catalytic activity/Vol] 82 U/L Normal 34-104 [facility] Comment on above: Performed By: #### H S TROP, CK, CMP, CBC #### [facility] [address] ALT [Catalytic activity/Vol] 11 U/L Normal 7-52 [facility] Comment on above: Performed By: #### H S TROP, CK, CMP, CBC #### [facility] [address] Anion gap [Moles/Vol] 11.5 mmol/L Normal 6.0-15.0 [facility] Comment on above: Performed By: #### H S TROP, CK, CMP, CBC #### [facility] [address] AST [Catalytic activity/Vol] 17 U/L Normal 13-39 [facility] Comment on above: Performed By: #### H S TROP, CK, CMP, CBC #### [facility] [address] [place] [address] [place] Bilirubin [Mass/Vol] 0.6 mg/dL Normal 0.3-1.0 [facility] Comment on above: Performed By: #### H S TROP, CK, CMP, CBC #### [facility] [address] [place] [address] [place] Calcium [Mass/Vol] 9.4 mg/dL Normal 8.6-10.3 [facility] Comment on above: Performed By: #### H S TROP, CK, CMP, CBC #### [facility] [address] [place] [address] [place] Chloride [Moles/Vol] 98 mmol/L Normal 98-107 [facility] Comment on above: Performed By: #### H S TROP, CK, CMP, CBC #### [facility] [address] [place] [address] [place] CO2 [Moles/Vol] 22.7 mmol/L Normal 21.0-31.0 [facility] Comment on above: Performed By: #### H S TROP, CK, CMP, CBC #### [facility] [address] Creatinine [Mass/Vol] 0.66 mg/dL Normal 0.60-1.[address] [facility] Comment on above: Performed By: #### H S TROP, CK, CMP, CBC #### [facility] [address] Creatinine Clr Calc Pharmacy 50.27 [facility] Comment on above: Result Comment: PERF ORMED BY: [place] [address] PATHOLOGIST PHP LAMP DEVELOPER KD ELLISON M.D. Performed By: #### H S TROP, CK, CMP, CBC #### [address] GFR/1.73 sq M.predicted MDRD (S/P/Bld) [Vol rate/Area] mL/min/{1.73_m2} [facility] Comment on above: Performed By: #### H S TROP, CK, CMP, CBC #### [facility] [address] Globulin (S) [Mass/Vol] 3.0 g/dL [facility] Comment on above: Performed By: #### H S TROP, CK, CMP, CBC #### [address] Glucose [Mass/Vol] 105 mg/dL High 70-100 [facility] Comment on above: Result Comment: [place] Glucose Reference Range is dependent on time and content of last meal. Glucose of more than 200 mg/dL in a nonstressed, ambulatory subject supports the diagnosis of Diabetes Mellitus. ADA recommended reference range Performed By: #### H S TROP, CK, CMP, CBC #### [facility] [address] Potassium [Moles/Vol] 4.2 mmol/L Normal 3.5-5.[address] [facility] Comment on above: Performed By: #### H S TROP, CK, CMP, CBC #### [facility] [address] Protein [Mass/Vol] 7.8 g/dL Normal 6.4-8.9 [facility] Comment on above: Performed By: #### H S TROP, CK, CMP, CBC #### [facility] [address] Sodium [Moles/Vol] 128 mmol/L Low 136-145 [facility] Comment on above: Performed By: #### H S TROP, CK, CMP, CBC #### [address] Urea nitrogen [Mass/Vol] 12 mg/dL Normal 7-25 [facility] Comment on above: Performed By: #### H S TROP, CK, CMP, CBC #### [address] Creatine Kinaseon 03-16-2023 CK [Catalytic activity/Vol] 43 U/L Normal [facility] Comment on above: Performed By: #### H S TROP, CK, CMP, CBC #### [address] Creatine kinase [Enzymatic a ctivity/volume] in Serum or PlasmaOrdered By: Thea Eisenberg on 03-16-2023 CK [Catalytic activity/Vol] 43 U/L [facility] Creatinine [Mass/volume] in Serum or PlasmaOrdered By: Thea Eisenberg on 03-16-2023 Creatinine [Mass/Vol] 0.66 mg/dL 0.60-1.[address] [facility] Digoxinon 03-16-2023 Digoxin [Mass/Vol] 0.4 ng/mL Low 0.9-2.0 [facility] Comment on above: Result Comment: Last dose: - PERFORMED BY: [place] [address] PATHOLOGIST PHP LAMP DEVELOPER KD ELLISON M.D. Performed By: #### B MP, CBC #### [address] [place] [address] [place] Digoxin [Mass/volume] in Ser um or PlasmaOrdered By: Thea Eisenberg on 03-16-2023 Digoxin [Mass/Vol] 0.4 ng/mL 0.9-2.0 [facility] Comment on above: Last dose: - Dipstick and Microscopicon 1 05-17-2022 Appearance (U) Clear Normal Clear [facility] Comment on above: Order Comment: Name Collection Type:: Clean-Voided Midstream Performed By: #### M G, BMP, CBC #### [facility] [address] [place] [address] [place] Bacteria,Urine None Seen Normal None Seen [facility] Comment on above: Order Comment: Name Collection Type:: Clean-Voided Midstream Performed By: #### M G, BMP, CBC #### [facility] [address] [place] [address] Bilirubin,Urine Negative Normal Negative [facility] Comment on above: Order Comment: Name Collection Type:: Clean-Voided Midstream Performed By: #### M G, BMP, CBC #### [facility] [address] [place] [address] Color (U) Yellow Normal Yellow [facility] Comment on above: Order Comment: Name Collection Type:: Clean-Voided Midstream Performed By: #### M G, BMP, CBC #### [facility] [address] [place] [address] Glucose Ql (U) Normal Normal Normal [facility] Comment on above: Order Comment: Name Collection Type:: Clean-Voided Midstream Performed By: #### M G, BMP, CBC #### [facility] [address] [place] [address] [place] Hyaline Casts,Urine None Seen Normal 0-8 [facility] Comment on above: Order Comment: Name Collection Type:: Clean-Voided Midstream Result Comment: PERF ORMED BY: [place] [address] PATHOLOGIST PHP LAMP DEVELOPER KD ELLISON M.D. Performed By: #### M G, BMP, CBC #### [facility] [address] [place] [address] [place] Ketones Ql (U) Negative Normal Negative [facility] Comment on above: Order Comment: Name Collection Type:: Clean-Voided Midstream Performed By: #### M G, BMP, CBC #### [facility] [address] [place] [address] Leukocyte esterase Test strip Ql (U) 1+ High Negative [facility] Comment on above: Order Comment: Name Collection Type:: Clean-Voided Midstream Performed By: #### M G, BMP, CBC #### [facility] [address] [place] [address] Nitrite,Urine Negative Normal Negative [facility] Comment on above: Order Comment: Name Collection Type:: Clean-Voided Midstream Performed By: #### M G, BMP, CBC #### [address] Occult Blood,Urine Negative Normal Negative [facility] Comment on above: Order Comment: Name Collection Type:: Clean-Voided Midstream Result Comment: PERF ORMED BY: [place] [address] PATHOLOGIST PHP LAMP DEVELOPER KD ELLISON M.D. Performed By: #### M G, BMP, CBC #### [facility] [address] [place] [address] [place] pH (U) 7.0 [pH] Normal 5.0-9.0 [facility] Comment on above: Order Comment: Name Collection Type:: Clean-Voided Midstream Performed By: #### M G, BMP, CBC #### [facility] [address] [place] [address] [place] Protein,Urine Negative Normal Negative [facility] Comment on above: Order Comment: Name Collection Type:: Clean-Voided Midstream Performed By: #### M G, BMP, CBC #### [facility] [address] [place] [address] [place] RBC,Urine 1-2 Normal 0-4 [facility] Comment on above: Order Comment: Name Collection Type:: Clean-Voided Midstream Performed By: #### M G, BMP, CBC #### [facility] [address] Specificy [place],Urine 1.012 Normal 1.001-1.030 [facility] Comment on above: Order Comment: Name Collection Type:: Clean-Voided Midstream Performed By: #### M G, BMP, CBC #### [facility] [address] [place] [address] Squamous Epithelial Cell,Urine None Seen Normal 0-2 [facility] Comment on above: Order Comment: Name Collection Type:: Clean-Voided Midstream Performed By: #### M G, BMP, CBC #### [facility] [address] [place] [address] Urobilinogen,Urine Normal Normal Normal [facility] Comment on above: Order Comment: Name Collection Type:: Clean-Voided Midstream Performed By: #### M G, BMP, CBC #### [facility] [address] [place] [address] WBC,Urine 1-2 Normal 0-4 [facility] Comment on above: Order Comment: Name Collection Type:: Clean-Voided Midstream Performed By: #### M G, BMP, CBC #### [address] ECG 12 lead ECGon 03-16-2023 ECG 12 lead ECG [facility] [place] [address] Electrocardiograph Report Signed Patient: Arianna Martinez MR#: [id number] 36 : 1950 Acct:[id number] Age/Sex: 72 / F ADM Date: 03/16/23 Loc: Room: [address] [place] [address] Type: ADM INOo Attending Dr: Phyllis Burciaga MD Ordering Provider: Thea Eisenberg APRN Date of Service: 03/16/23 ECG/ECG 12 lead ECG: Syncope Copies to: Test Reason : Blood Pressure : 122/066 mmHG Vent. Rate : 062 BPM Atrial Rate : 062 BPM P-R Int : 192 ms QRS Dur : 150 ms QT Int : 460 ms P-R-T Axes : 052 -37 085 degrees QTc Int : 466 ms Sinus rhythm with occasional premature ventricular complexes Left axis deviation Left bundle branch block Abnormal ECG When compared with ECG of 08-NOV-2022 17:33, premature ventricular complexes are now present premature atrial complexes are no longer present Questionable change in QRS axis Confirmed by CORNELIUS CONRAD MD ([id number]) on 03/17/2023 3:35:02 PM Referred By: Electronically Signed By:CORNELIUS CONRAD MD Transcribed By: MUS Signed By Cornelius Conrad MD 03/17/23 1535 Normal [facility] Eosinophils Auto (Bld) [#/Vo l]Ordered By: Thea Eisenberg on 03-16-2023 Eosinophils (Bld) [#/Vol] 0.1 10*3/uL 0.0-0.45 [facility] Eosinophils/100 WBC Auto (Bl d)Ordered By: Thea Eisenberg on 03-16-2023 Eosinophils/100 WBC (Bld) 0.6 % . [facility] Erythrocyte distribution wid th Auto (RBC) [Ratio]Ordered By: Thea Eisenberg on 03-16-2023 Erythrocyte distribution width (RBC) [Ratio] 13.4 % 11.9-15.3 [facility] Globulin Calc (S) [Mass/Vol] Ordered By: Thea Eisenberg on 03-16-2023 Globulin (S) [Mass/Vol] 3.0 g/dL [facility] Glucose [Mass/volume] in Ser um or PlasmaOrdered By: Thea Eisenberg on 03-16-2023 Glucose [Mass/Vol] 105 mg/dL 70-100 [facility] Comment on above: ADA recommended refe rence rangeRandom Glucose Reference Range is dependent on time and content of last meal. Glucose of more than 200 mg/dL in a nonstressed, ambulatory subject supports the diagnosis of Diabetes Mellitus. Hematocrit Auto (Bld) [Volum e fraction]Ordered By: Thea Eisenberg on 03-16-2023 Hematocrit (Bld) [Volume fraction] 38.1 % 34.0-46.4 [facility] Hemoglobin [Mass/volume] in BloodOrdered By: Thea Eisenberg on 03-16-2023 Hemoglobin (Bld) [Mass/Vol] 12.9 g/dL 11.8-15.4 [facility] Ketones Auto test strip (U) [Mass/Vol]Ordered By: Thea Eisenberg on 03-16-2023 Ketones (U) [Mass/Vol] Negative Negative [facility] - UrinalysisOrder ed By: Thea Eisenberg on 03-16-2023 Hyaline casts LM Ql (Urine sed) None seen [LPF] 0-8 [facility] Leukocytes [#/volume] correc brien for nucleated erythrocytes in Blood by Automated counOrdered By: Thea Eisenberg on 03-16-2023 WBC corrected for nucl RBC Auto (Bld) [#/Vol] 10.9 10*3/uL 3.8-11.6 [facility] Lymphocytes Auto (Bld) [#/Vo l]Ordered By: Thea Eisenberg on 03-16-2023 Lymphocytes (Bld) [#/Vol] 1.6 10*3/uL 1.00-4.8 [facility] Lymphocytes/100 WBC Auto (Bl d)Ordered By: Thea Eisenberg on 03-16-2023 Lymphocytes/100 WBC (Bld) 14.2 % . [facility] MCH Auto (RBC) [Entitic mass ]Ordered By: Thea Eisenberg on 03-16-2023 MCH (RBC) [Entitic mass] 31.0 pg 24.7-34.3 [facility] MCHC Auto (RBC) [Mass/Vol]Or dered By: Thea Eisenberg on 03-16-2023 MCHC (RBC) [Mass/Vol] 33.8 g/dL 32.0-35.[address] [facility] MCV Auto (RBC) [Entitic vol] Ordered By: Thea Eisenberg on 03-16-2023 MCV (RBC) [Entitic vol] 91.5 fL 80-100 [facility] Magnesiumon 03-16-2023 Magnesium [Mass/Vol] 1.8 mg/dL Low 1.9-2.7 [facility] Comment on above: Order Comment: Comme nt add Performed By: #### M G, BMP, CBC #### [facility] [address] [place] [id number] [facility] Magnesium [Mass/volume] in S joon or PlasmaOrdered By: Phyllis Burciaga on 03-16-2023 Magnesium [Mass/Vol] 1.8 mg/dL 1.9-2.7 [facility] Monocyte distribution width [Entitic volume] in Blood by AutomatedOrdered By: Thea Eisenberg on 03-16-2023 Monocyte distribution width Auto (Bld) [Entitic vol] 18.90 % 0.00-20.00 [facility] Monocytes Auto (Bld) [#/Vol] Ordered By: Thea Eisenberg on 03-16-2023 Monocytes (Bld) [#/Vol] 0.6 10*3/uL 0.0-0.8 [facility] Monocytes/100 WBC Auto (Bld) Ordered By: Thea Eisenberg on 03-16-2023 Monocytes/100 WBC (Bld) 5.8 % . [facility] Natriuretic peptide B [Mass/ Vol]Ordered By: Thea Eisenberg on 03-16-2023 Natriuretic peptide B (Bld) [Mass/Vol] 34.0 pg/mL 5-100 [facility] Neutrophils Auto (Bld) [#/Vo l]Ordered By: Thea Eisenberg on 03-16-2023 Neutrophils (Bld) [#/Vol] 8.6 10*3/uL 1.8-7.7 [facility] Neutrophils/100 WBC Auto (Bl d)Ordered By: Thea Eisenberg on 03-16-2023 Neutrophils/100 WBC (Bld) 78.9 % . [facility] Nitrite Test strip Ql (U)Ord ered By: Thea Eisenberg on 03-16-2023 Nitrite Ql (U) Negative Negative [facility] No Panel InformationOrdered By: Phyllis Burciaga on 03-16-2023 Urine Osmolality 194 mosm 250-900 [facility] No Panel InformationOrdered By: Thea Eisenberg on 03-16-2023 Estimated GFR (CKD-EPI) > 60.0 mL/Min [facility] Creatinine Clearance (Chem 50.27 [facility] Nucleated erythrocytes [Pres ence] in Blood by Automated countOrdered By: Thea Eisenberg on 03-16-2023 Nucleated RBC Auto Ql (Bld) 0.2 /100{WBC} 0-0.5 [facility] Osmolality, Urineon 03-16-20 23 Osmolality, Urine 194 mosm Low 250-900 [facility] Comment on above: Result Comment: PERF ORMED BY: [facility] [address] [place] [address] PATHOLOGIST PHP LAMP DEVELOPER KD ELLISON M.D. Performed By: #### M G, BMP, CBC #### [facility] [address] Platelet mean volume Auto (B ld) [Entitic vol]Ordered By: Thea Eisenberg on 03-16-2023 Platelet mean volume (Bld) [Entitic vol] 7.1 fL 6.3-10.7 [facility] Platelets Auto (Bld) [#/Vol] Ordered By: Thea Eisenberg on 03-16-2023 Platelets (Bld) [#/Vol] 396 10*3/uL 150-450 [facility] Potassium [Moles/volume] in Serum or PlasmaOrdered By: Thea Eisenberg on 03-16-2023 Potassium [Moles/Vol] 4.2 mmol/L 3.5-5.[address] [facility] Protein Auto test strip (U) [Mass/Vol]Ordered By: Thea Eisenberg on 03-16-2023 Protein (U) [Mass/Vol] Negative Negative [facility] Protein [Mass/volume] in Ser um or PlasmaOrdered By: Thea Eisenberg on 03-16-2023 Protein [Mass/Vol] 7.8 g/dL 6.4-8.9 [facility] RBC Auto (Bld) [#/Vol]Ordere d By: Thea Eisenberg on 03-16-2023 RBC (Bld) [#/Vol] 4.16 10*6/uL 3.60-5.00 [facility] Serum or plasma albumin/glob ulin mass ratioOrdered By: Thea Eisenberg on 03-16-2023 Albumin/Globulin [Mass ratio] 1.6 {ratio} [facility] Serum or plasma anion gap de terminationOrdered By: Thea Eisenberg on 03-16-2023 Anion gap [Moles/Vol] 11.5 mmol/L 6.0-15.0 [facility] Sodium [Moles/volume] in Ser um or PlasmaOrdered By: Thea Eisenberg on 03-16-2023 Sodium [Moles/Vol] 128 mmol/L 136-145 [facility] Sodium [Moles/volume] in Uri neOrdered By: Phyllis Burciaga on 03-16-2023 Sodium (U) [Moles/Vol] 45 mmol/L [facility] Comment on above: No reference range e stablished Sodium, Urine (Random)on Sodium (U) [Moles/Vol] 45 mmol/L Normal [facility] Comment on above: Result Comment: No r eference range established PERFORMED BY: [place] [address] PATHOLOGIST PHP LAMP DEVELOPER KD ELLISON M.D. Performed By: #### O SMO #### [address] Specific gravity Auto test s trip (U) [Rel density]Ordered By: Thea Eisenberg on 03-16-2023 Specific gravity (U) [Rel density] 1.012 1.001-1.030 [facility] Squamous epithelial cells de tection in urine sediment by light microscopyOrdered By: Thea Eisenberg on 03-16-2023 Epithelial cells.squamous LM Ql (Urine sed) None seen [HPF] 0-2 [facility] Thyroid Stimulating Hormoneo n 03-16-2023 TSH Qn 1.32 m[IU]/L Normal 0.45-5.33 [facility] Comment on above: Order Comment: Comme nt add Result Comment: PERF ORMED BY: [place] [address] PATHOLOGIST PHP LAMP DEVELOPER KD ELLISON M.D. Performed By: #### M G, BMP, CBC #### [facility] [address] Thyrotropin [Units/volume] i n Serum or PlasmaOrdered By: Phyllis Burciaga on 03-16-2023 TSH Qn 1.32 m[IU]/L 0.45-5.33 [facility] Troponin I High Sensitivityo n 03-16-2023 Troponin I High Sensitivity 5.1 pg/mL Normal 0.0-15.0 [facility] Comment on above: Result Comment: PERF ORMED BY: [place] [address] PATHOLOGIST PHP LAMP DEVELOPER KD ELLISON M.D. Performed By: #### M G, BMP, CBC #### [facility] [address] [place] [address] Troponin I High Sensitivity 4.4 pg/mL Normal 0.0-15.0 [facility] Comment on above: Result Comment: PERF ORMED BY: [place] [address] PATHOLOGIST PHP LAMP DEVELOPER KD ELLISON M.D. Performed By: #### H S TROP, CK, CMP, CBC #### [facility] [address] [place] [address] Troponin I.cardiac [Mass/vol ume] in Serum or Plasma by Detection limit <= 0.01 ng/Ordered By: Phyllis Burciaga on 03-16-2023 Troponin I.cardiac DL <= 0.01 ng/mL [Mass/Vol] 5.1 pg/mL 0.0-15.0 [facility] Troponin I.cardiac [Mass/vol ume] in Serum or Plasma by Detection limit <= 0.01 ng/Ordered By: Thea Eisenberg on 03-16-2023 Troponin I.cardiac DL <= 0.01 ng/mL [Mass/Vol] 4.4 pg/mL 0.0-15.0 [facility] Urea nitrogen [Mass/volume] in Serum or PlasmaOrdered By: Thea Eisenberg on 03-16-2023 Urea nitrogen [Mass/Vol] 12 mg/dL 7-25 [facility] Urine bacteria detection by automated methodOrdered By: Thea Eisenberg on 03-16-2023 Bacteria Auto Ql (U) None seen None Seen [facility] Urine clarity by refractomet ry automatedOrdered By: Thea Eisenberg on 03-16-2023 Clarity Refractometry automated (U) Clear Clear [facility] Urine glucose measurement by automated test strip (mass/volume)Ordered By: Thea Eisenberg on 03-16-2023 Glucose Auto test strip (U) [Mass/Vol] Normal mg/dL Normal [facility] Urine hemoglobin detection b y automated test stripOrdered By: Thea Eisenberg on 03-16-2023 Hemoglobin Auto test strip Ql (U) Negative Negative [facility] Urine leukocyte esterase det ection by automated test stripOrdered By: Thea Eisenberg on 03-16-2023 Leukocyte esterase Auto test strip Ql (U) 1+ Negative [facility] Urobilinogen Auto test strip (U) [Mass/Vol]Ordered By: Thea Eisenberg on 03-16-2023 Urobilinogen (U) [Mass/Vol] Normal mg/dL Normal [facility] WBC Auto (Bld) [#/Vol]Ordere d By: Thea Eisenberg on 03-16-2023 WBC (Bld) [#/Vol] 10.9 10*3/uL 3.8-11.6 [facility] XR chest 2V*on 03-16-2023 XR chest 2V* [facility] [place] [address] XRay Report Signed Patient: Arianna Martinez MR#: [id number] 36 : 1950 Acct:[id number] Age/Sex: 72 / F ADM Date: 03/16/23 Loc: ER Room: Type: PRE ER Attending Dr: Copies to: Thea Eisenberg APRN Ordering Provider: Thea Eisenberg APRN Date of Service: 03/16/23 XR/XR chest 2V*: Syncope Plain film chest 2 view HISTORY: Dizziness today COMPARISON: 11/08/2022 FINDINGS: SUPPORT DEVICES: None POSTSURGICAL CHANGES: None HEART: Similar borderline cardiomegaly PULMONARY CASSANDRA: Mild hilar vascular prominence. MEDIASTINUM: Unremarkable LUNGS AND PLEURA: Basilar interstitial prominence. No focal consolidation. No pleural effusion or pneumothorax. BONY STRUCTURES: Intact ADDITIONAL FINDINGS None XR/XR chest 2V* IMPRESSION: Continued cardiomegaly and hilar vascular congestion. Interstitial changes may represent mild pulmonary edema. Impression dictated by: Darryn Brown M.D.03/16/2023 3:53 PM Dictation Location: [place] [address] Transcribed By: [facility] 03/16/231552 Dictated By: Darryn Brown DO 03/16/231550 Signed By: 03/16/231552 Normal [facility] pH Auto test strip (U)Ordere d By: Thea Eisenberg on 03-16-2023 pH (U) 7.0 [pH] 5.0-9.0 [facility] Office Visit (Cardiology)on 12-14-2022 Follow-up visit Diagnoses/Problems Assessed Hyponatremia (276.1) (E87.1) Hypertension (401.9) (I10) CHF (congestive heart failure), NYHA class II (428.0) (I50.9) Left bundle-branch block (426.3) (I44.7) Never a smoker Hospital discharge follow-up (V67.59) (Z09) Body mass index (BMI) of 23.0 to 23.9 in adult (V85.1) (Z68.23) Stage 3b chronic kidney disease (585.3) (N18.32) Medication course changed (V58.69) (Z79.899) Orders CHF (congestive heart failure), NYHA class II, Hypertension Start: Potassium Chloride Praveena ER 20 MEQ Oral Tablet Extended Release; TAKE 1 TABLET BY MOUTH EVERY DAY Start: Valsartan 80 MG Oral Tablet; TAKE 1 TABLET DAILY CHF (congestive heart failure), NYHA class II, Hypokalemia, Hyponatremia Renew: Digoxin 125 MCG Oral Tablet; TAKE 1 TABLET 3 DAYS A WEEK CHF (congestive heart failure), NYHA class II, Stage 3b chronic kidney disease Basic Metabolic Panel; Status:Active; Requested for:[id number]; SocHx: Never a smoker Tobacco Use Screening; Status:Complete; Done: 14Dec2022 Unlinked Stop: Potassium Chloride Praveena ER 20 MEQ Oral Tablet Extended Release Patient Instructions Please bring all medicines, vitamins, and herbal supplements with you when you come to the office. Prescriptions will not be filled unless you are compliant with your follow up appointments or have a follow up appointment scheduled as per instruction of your physician. Refills should be requested at the time of your visit. labs stop furosemide reduce valsartan potassium 1x daily Follow up in 3 months Chief Complaint ARIANNA MARTINEZ is being seen for a 6 week follow-up of. History of Present Illness Last seen 09/2022. Accompanied by daughter to the office. Seen in the emergency department in October 2022 and I reviewed notes and laboratory data pertaining to that. Patient gets very symptomatic when her sodium drops, her symptoms were fatigue, mental confusion and headache. Blood pressure is borderline, but she is not orthostatic Reviewed cardiac rehabilitation notes, towards the end of exercise stations blood pressure does drop, and she gets lightheaded. No dysrhythmia. Activity level has improved to 7.6 METS. No evidence of volume overload. Isolated supraventricular and ventricular premature beats noted. Weight remains stable Has nephrology appointment in the near future. I have requested notes from nephrology. Assessment: 1. Nonspecific intraventricular conduction block, QRS duration 140 ms on EKG 07/17/2022 2. Chronic systolic left heart failure related to nonischemic cardiomyopathy, functional class II 3. Tendency for hyponatremia 4. Hypertension 5. Nonischemic myocardial injury-subsequent visit 6. Echocardiogram June 2022-LVEF 25% abnormal septal motion consistent with left bundle branch block global hypokinesis normal RV systolic function trace tricuspid regurgitation aortic sclerosis mitral sclerosis normal IVC, left atrial diameter 3.5 cm, left atrial volume index 26 mm per metered squared 7. Echocardiogram January 2022-LVEF 35 to 40% left atrial volume index 30 mm per metered squared LV end-systolic dimension 3.9 cm left atrial volume index 30.2 mm per metered squared 8. Entresto prohibitively expensive. 9. GFR greater than 60 creatinine clearance 48 6. Nephrology had recommended discontinuation of sertraline because it could be contributory to hypokalemia 7. Previous cardiology notes suggest that patient probably had Takotsubo for her cardiomyopathy, mid ventricular variant 8. Patient has had a cardiac catheterization at an outside facility around June 2021, and based on the reports there was no coronary artery disease. Takotsubo cardiomyopathy was suspected. I have since then reviewed notes, and although the cardiac catheterization report is not there, assessment was that patient had nonischemic cardiomyopathy, presumably Takotsubo 9. Echocardiogram September 2022-LVEF 45 to 50%, abnormal septal motion related to left bundle branch block, significant improvement in LV ejection fraction compared to the study of June 2022 left atrial diameter 3.3 cm LV end-systolic dimension 3.8 cm 10. Persistent hyponatremia associated with symptoms, following up with nephrology. 11. Dizziness and borderline arterial hypotension, not orthostatic Recommendations: 1. Discontinue Lasix currently taking 10 mg daily 2. When Lasix is discontinued, decrease potassium chloride to 20 mEq p.o. daily 3. Decrease Diovan to 80 mg p.o. daily 4. Follow-up blood pressure, previously when Diovan was decreased blood pressure increased. 5. I have reviewed notes from outside facility dated June 2021, patient is diagnosed with nonischemic cardiomyopathy and at times possibly Takotsubo. 6. Patient's depression medications to be changed to use agents that do not exacerbate hyponatremia. 7. Blood pressure may escalate with down titration of Diovan, additional agents may be needed. 8. Follow-up in February 2023 9. Basic metabolic profil (more content not included)... Normal [employer] Tobacco Screening.on 023 Fall risk assessment a) No falls within the last year [facility] Work Phone: Tobacco use status [facility]PHS b) No [facility] Work Phone: Activated partial thrombopla stin time (aPTT) in platelet poor plasma by coagulation aOrdered By: Nishant Lucio on 11-08-2022 aPTT Coag (PPP) [Time] 29.2 s 25.1-36.5 [facility] Alanine aminotransferase [En zymatic activity/volume] in Serum or PlasmaOrdered By: Nishant Lucio on 11-08-2022 ALT [Catalytic activity/Vol] 10 U/L 7-52 [facility] Albumin [Mass/volume] in Ser um or Plasma by Bromocresol green (BCG) dye binding methoOrdered By: Nishant Lucio on 11-08-2022 Albumin BCG dye [Mass/Vol] 4.5 g/dL 3.5-5.7 [facility] Alkaline phosphatase [Enzyma tic activity/volume] in Serum or PlasmaOrdered By: Nishant Lucio on 11-08-2022 ALP [Catalytic activity/Vol] 79 U/L 34-104 [facility] Aspartate aminotransferase [ Enzymatic activity/volume] in Serum or PlasmaOrdered By: Nishant Lucio on 11-08-2022 AST [Catalytic activity/Vol] 17 U/L 13-39 [facility] Automated erythrocytes count in urine sediment (number/area)Ordered By: Nishant Lucio on 11-08-2022 RBC Auto (Urine sed) [#/Area] 0-1 [HPF] 0-4 [facility] Automated leukocytes count i n urine sediment (number/area)Ordered By: Nishant Lucio on 11-08-2022 WBC Auto (Urine sed) [#/Area] 0-1 [HPF] 0-4 [facility] B-Type Natriuretic Peptideon 11-08-2022 Natriuretic peptide B (Bld) [Mass/Vol] 123.0 pg/mL High 5-100 [facility] Comment on above: Result Comment: PERF ORMED BY: [place] [address] PATHOLOGIST [employer] LAMP DEVELOPER KD ELLISON M.D. Performed By: #### B MP, CBC #### [facility] [address] Basic Metabolic Panelon 10-24 Anion gap [Moles/Vol] 12.2 mmol/L Normal 6.0-15.0 [facility] Comment on above: Performed By: #### B MP, CBC #### [facility] [address] [place] [address] [place] Calcium [Mass/Vol] 8.8 mg/dL Normal 8.6-10.3 [facility] Comment on above: Performed By: #### B MP, CBC #### [facility] [address] [place] [address] [place] Chloride [Moles/Vol] 96 mmol/L Low 98-107 [facility] Comment on above: Performed By: #### B MP, CBC #### [facility] [address] CO2 [Moles/Vol] 22.8 mmol/L Normal 21.0-31.0 [facility] Comment on above: Performed By: #### B MP, CBC #### [facility] [address] Creatinine [Mass/Vol] 0.63 mg/dL Normal 0.60-1.[address] [facility] Comment on above: Performed By: #### B MP, CBC #### [facility] [address] [place] [address] [place] Creatinine Clr Calc Pharmacy 47.97 [facility] Comment on above: Performed By: #### B MP, CBC #### [facility] [address] [place] [address] [place] GFR/1.73 sq M.predicted MDRD (S/P/Bld) [Vol rate/Area] mL/min/{1.73_m2} [facility] Comment on above: Performed By: #### B MP, CBC #### [address] Glucose [Mass/Vol] 111 mg/dL High 70-100 [facility] Comment on above: Result Comment: [place] Glucose Reference Range is dependent on time and content of last meal. Glucose of more than 200 mg/dL in a nonstressed, ambulatory subject supports the diagnosis of Diabetes Mellitus. ADA recommended reference range Performed By: #### B MP, CBC #### [facility] [address] [place] [address] [place] Potassium [Moles/Vol] 4.0 mmol/L Normal 3.5-5.[address] [facility] Comment on above: Performed By: #### B MP, CBC #### [facility] [address] [place] [address] [place] Sodium [Moles/Vol] 127 mmol/L Low 136-145 [facility] Comment on above: Performed By: #### B MP, CBC #### [place] [address] [place] Urea nitrogen [Mass/Vol] 11 mg/dL Normal 7-25 [facility] Comment on above: Performed By: #### B MP, CBC #### [address] Basophils Auto (Bld) [#/Vol] Ordered By: Nishant Lucio on 11-08-2022 Basophils (Bld) [#/Vol] 0.1 10*3/uL 0.0-0.2 [facility] Basophils/100 WBC Auto (Bld) Ordered By: Nishant Lucio on 11-08-2022 Basophils/100 WBC (Bld) 0.6 % . [facility] Bilirubin Test strip Ql (U)O rdered By: Nishant Lucio on 11-08-2022 Bilirubin Ql (U) Negative Negative [facility] Bilirubin.direct [Mass/volum e] in Serum or PlasmaOrdered By: Nishant Lucio on 11-08-2022 Bilirubin.direct [Mass/Vol] 0.10 mg/dL 0.03-0.18 [facility] Bilirubin.total [Mass/volume ] in Serum or PlasmaOrdered By: Nishant Lucio on 11-08-2022 Bilirubin [Mass/Vol] 0.4 mg/dL 0.3-1.0 [facility] CT head/brain wo conon 11-08 CT head/brain wo con [facility] [address] CT Scan Report Signed Patient: Arianna Martinez MR#: [id number] 36 : 1950 Acct:[id number] Age/Sex: 72 / F ADM Date: 11/08/22 Loc: ER Room: Type: [facility] ER Attending Dr: Copies to: Nishant Lucio DO Ordering Provider: Nishant Lucio DO Date of Service: 11/08/22 CT/CT head/brain wo con: dizziness CT BRAIN WITHOUT CONTRAST: CLINICAL HISTORY: Headaches, dizziness and diaphoresis COMPARISON: None TECHNIQUE: Contiguous axial unenhanced images were obtained through the brain. This CT exam was performed using one or more following dose reduction techniques: Automated exposure control, adjustment of the mA and/or kV according to patient size, or use of iterative reconstruction technique. FINDINGS: There is mild generalized atrophy. The ventricles are normal in size and position. Mild microvascular changes are noted, greatest near the frontal horn of the left lateral ventricle. There are no additional areas of abnormal attenuation. There is no hemorrhage, mass effect or extra-axial collections. The imaged paranasal sinuses and mastoid air cells are clear. Carotid siphon plaque is seen. CT/CT head/brain wo con IMPRESSION: ATROPHY AND SMALL VESSEL ISCHEMIC CHANGES. NO ACUTE INTRACRANIAL ABNORMALITY. Impression dictated by: Kitty Dee M.D.11/08/2022 7:02 PM Dictation Location: [place] [address] Transcribed By: JL 11/08/221901 Dictated By: Kitty Dee MD 11/08/221858 Signed By: 11/08/221901 Normal [facility] Calcium [Mass/volume] in Ser um or PlasmaOrdered By: Nishant Lucio on 11-08-2022 Calcium [Mass/Vol] 8.8 mg/dL 8.6-10.3 [facility] Carbon dioxide, total [Moles /volume] in Serum or PlasmaOrdered By: Nishant Lucio on 11-08-2022 CO2 [Moles/Vol] 22.8 mmol/L 21.0-31.0 [facility] Chloride [Moles/volume] in S joon or PlasmaOrdered By: Nishant Lucio on 11-08-2022 Chloride [Moles/Vol] 96 mmol/L 98-107 [facility] Color Auto (U)Ordered By: Hemant Lucio on 11-08-2022 Color (U) Yellow Yellow [facility] Complete Blood Count Auto Di ffon 11-08-2022 Basophils (Bld) [#/Vol] 0.1 10*3/uL Normal 0.0-0.2 [facility] Comment on above: Result Comment: PERF ORMED BY: [address] [id number] PATHOLOGIST [employer] L[employer] DEVELOPER KD ELLISON M.D. Performed By: #### B MP, CBC #### [address] [address] [place] Basophils/100 WBC (Bld) 0.6 % Normal . [facility] Comment on above: Performed By: #### B MP, CBC #### [address] Eosinophils (Bld) [#/Vol] 0.1 10*3/uL Normal 0.0-0.45 [facility] Comment on above: Performed By: #### B MP, CBC #### [address] Eosinophils/100 WBC (Bld) 0.8 % Normal . [facility] Comment on above: Performed By: #### B MP, CBC #### [address] Erythrocyte distribution width (RBC) [Ratio] 13.1 % Normal 11.9-15.3 [facility] Comment on above: Performed By: #### B MP, CBC #### [address] Hematocrit (Bld) [Volume fraction] 37.3 % Normal 34.0-46.4 [facility] Comment on above: Performed By: #### B MP, CBC #### [address] Hemoglobin (Bld) [Mass/Vol] 12.5 g/dL Normal 11.8-15.4 [facility] Comment on above: Performed By: #### B MP, CBC #### [address] Lymphocytes (Bld) [#/Vol] 1.9 10*3/uL Normal 1.00-4.8 [facility] Comment on above: Performed By: #### B MP, CBC #### [address] Lymphocytes/100 WBC (Bld) 14.7 % Normal . [facility] Comment on above: Performed By: #### B MP, CBC #### [address] MCH (RBC) [Entitic mass] 29.7 pg Normal 24.7-34.3 [facility] Comment on above: Performed By: #### B MP, CBC #### [address] MCV (RBC) [Entitic vol] 88.8 fL Normal 80-100 [facility] Comment on above: Performed By: #### B MP, CBC #### [address] Mean Corpuscular HGB Conc 33.4 g/dL Normal 32.0-35.0 [facility] Comment on above: Performed By: #### B MP, CBC #### [address] Monocytes (Bld) [#/Vol] 0.8 10*3/uL Normal 0.0-0.8 [facility] Comment on above: Performed By: #### B MP, CBC #### [address] Monocytes/100 WBC (Bld) 15.48 % Normal 0.00-20.00 [facility] Comment on above: Performed By: #### B MP, CBC #### [address] Monocytes/100 WBC (Bld) 6.0 % Normal . [facility] Comment on above: Performed By: #### B MP, CBC #### [facility] [address] [place] [address] Neutrophils (Bld) [#/Vol] 10.3 10*3/uL High 1.8-7.7 [facility] Comment on above: Performed By: #### B MP, CBC #### [address] Neutrophils/100 WBC (Bld) 77.9 % Normal . [facility] Comment on above: Performed By: #### B MP, CBC #### [address] NRBC% 0.0 /100{WBC} Normal 0-0.5 [facility] Comment on above: Performed By: #### B MP, CBC #### [facility] [address] Platelet mean volume (Bld) [Entitic vol] 7.0 fL Normal 6.3-10.7 [facility] Comment on above: Performed By: #### B MP, CBC #### [facility] [address] Platelets (Bld) [#/Vol] 402 10*3/uL Normal 150-450 [facility] Comment on above: Performed By: #### B MP, CBC #### [facility] [address] RBC (Bld) [#/Vol] 4.20 10*6/uL Normal 3.60-5.00 [facility] Comment on above: Performed By: #### B MP, CBC #### [facility] [address] [place] [address] WBC (Bld) [#/Vol] 13.2 10*3/uL High 3.8-11.6 [facility] Comment on above: Performed By: #### B MP, CBC #### [address] Creatine Kinaseon 11-08-2022 CK [Catalytic activity/Vol] 67 U/L Normal 30-223 [facility] Comment on above: Performed By: #### B MP, CBC #### [address] Creatine kinase [Enzymatic a ctivity/volume] in Serum or PlasmaOrdered By: Nishant Lucio on 11-08-2022 CK [Catalytic activity/Vol] 67 U/L 30-223 [facility] Creatinine [Mass/volume] in Serum or PlasmaOrdered By: Nishant Lucio on 11-08-2022 Creatinine [Mass/Vol] 0.63 mg/dL 0.60-1.[address] [facility] Dipstick and Microscopicon 0 11-08-2022 Appearance (U) Clear Normal Clear [facility] Comment on above: Order Comment: Name Collection Type:: Clean-Voided Midstream Performed By: #### M G, BMP, CBC #### [facility] [address] [place] [address] [place] Bacteria,Urine None Seen Normal None Seen [facility] Comment on above: Order Comment: Name Collection Type:: Clean-Voided Midstream Performed By: #### M G, BMP, CBC #### [facility] [address] [place] [address] [place] Bilirubin,Urine Negative Normal Negative [facility] Comment on above: Order Comment: Name Collection Type:: Clean-Voided Midstream Performed By: #### M G, BMP, CBC #### [facility] [address] [place] [address] [place] Color (U) Yellow Normal Yellow [facility] Comment on above: Order Comment: Name Collection Type:: Clean-Voided Midstream Performed By: #### M G, BMP, CBC #### [facility] [address] [place] [address] [place] Glucose Ql (U) Normal Normal Normal [facility] Comment on above: Order Comment: Name Collection Type:: Clean-Voided Midstream Performed By: #### M G, BMP, CBC #### [facility] [address] [place] [address] [place] Hyaline Casts,Urine None Seen Normal 0-8 [facility] Comment on above: Order Comment: Name Collection Type:: Clean-Voided Midstream Result Comment: PERF ORMED BY: [place] [address] PATHOLOGIST [employer] LAMP DEVELOPER KD ELLISON M.D. Performed By: #### M G, BMP, CBC #### [facility] [address] [place] [address] [place] Ketones Ql (U) Negative Normal Negative [facility] Comment on above: Order Comment: Name Collection Type:: Clean-Voided Midstream Performed By: #### M G, BMP, CBC #### [facility] [address] [place] [address] [place] Leukocyte esterase Test strip Ql (U) 2+ High Negative [facility] Comment on above: Order Comment: Name Collection Type:: Clean-Voided Midstream Performed By: #### M G, BMP, CBC #### [place] [address] [place] Nitrite,Urine Negative Normal Negative [facility] Comment on above: Order Comment: Name Collection Type:: Clean-Voided Midstream Performed By: #### M G, BMP, CBC #### [address] Occult Blood,Urine Negative Normal Negative [facility] Comment on above: Order Comment: Name Collection Type:: Clean-Voided Midstream Result Comment: PERF ORMED BY: [place] [address] PATHOLOGIST [employer] LAMP DEVELOPER KD ELLISON M.D. Performed By: #### M G, BMP, CBC #### [address] pH (U) 6.0 [pH] Normal 5.0-9.0 [facility] Comment on above: Order Comment: Name Collection Type:: Clean-Voided Midstream Performed By: #### M G, BMP, CBC #### [place] [address] [place] Protein,Urine Negative Normal Negative [facility] Comment on above: Order Comment: Name Collection Type:: Clean-Voided Midstream Performed By: #### M G, BMP, CBC #### [place] [address] [place] RBC LM.HPF (Urine sed) [#/Area] 0 /[HPF] Normal 0-4 [facility] Comment on above: Order Comment: Name Collection Type:: Clean-Voided Midstream Performed By: #### M G, BMP, CBC #### [place] [address] [place] Specificy [place],Urine 1.005 Normal 1.001-1.030 [facility] Comment on above: Order Comment: Name Collection Type:: Clean-Voided Midstream Performed By: #### M G, BMP, CBC #### [address] [place] [address] [place] Squamous Epithelial Cell,Urine None Seen Normal 0-2 [facility] Comment on above: Order Comment: Name Collection Type:: Clean-Voided Midstream Performed By: #### M G, BMP, CBC #### [facility] [address] Urobilinogen,Urine Normal Normal Normal [facility] Comment on above: Order Comment: Name Collection Type:: Clean-Voided Midstream Performed By: #### M G, BMP, CBC #### [facility] [address] WBC LM.HPF (Urine sed) [#/Area] 0 /[HPF] Normal 0-4 [facility] Comment on above: Order Comment: Name Collection Type:: Clean-Voided Midstream Performed By: #### M G, BMP, CBC #### [address] ECG 12 lead ECGon 11-08-2022 ECG 12 lead ECG [facility] [place] [address] Electrocardiograph Report Signed Patient: Arianna Martinez MR#: [id number] 36 : 1950 Acct:[id number] Age/Sex: 72 / F ADM Date: 11/08/22 Loc: ER Room: Type: [facility] ER Attending Dr: Ordering Provider: Nishant Lucio DO Date of Service: 11/08/22 ECG/ECG 12 lead ECG: Weakness Copies to: Test Reason : Blood Pressure : / mmHG Vent. Rate : 070 BPM Atrial Rate : 070 BPM P-R Int : 184 ms QRS Dur : 144 ms QT Int : 444 ms P-R-T Axes : 048 218 065 degrees QTc Int : 479 ms Sinus rhythm with premature atrial complexes Right superior axis deviation Nonspecific intraventricular block Cannot rule out Anterior infarct , age undetermined Abnormal ECG No previous ECGs available Confirmed by Nishant Lucio DO ([id number]) on 11/09/2022 1:01:14 AM Referred By: Electronically Signed By:Nishant Lucio DO Transcribed By: MUS Signed By Nishant Lucio DO 3 [address]101 Normal [facility] Eosinophils Auto (Bld) [#/Vo l]Ordered By: Nishant Lucio on 11-08-2022 Eosinophils (Bld) [#/Vol] 0.1 10*3/uL 0.0-0.45 [facility] Eosinophils/100 WBC Auto (Bl d)Ordered By: Nishant Lucio on 11-08-2022 Eosinophils/100 WBC (Bld) 0.8 % . [facility] Erythrocyte distribution wid th Auto (RBC) [Ratio]Ordered By: Nishant Lucio on 11-08-2022 Erythrocyte distribution width (RBC) [Ratio] 13.1 % 11.9-15.3 [facility] Free T4 (Free Thyroxine)on 0 11-08-2022 Free T4 [Mass/Vol] 0.96 ng/dL Normal 0.61-1.12 [facility] Comment on above: Performed By: #### B MP, CBC #### [address] Globulin Calc (S) [Mass/Vol] Ordered By: Nishant Lucio on 11-08-2022 Globulin (S) [Mass/Vol] 3.1 g/dL [facility] Glucose [Mass/volume] in Ser um or PlasmaOrdered By: Nishant Lucio on 11-08-2022 Glucose [Mass/Vol] 111 mg/dL 70-100 [facility] Comment on above: ADA recommended refe rence rangeRandom Glucose Reference Range is dependent on time and content of last meal. Glucose of more than 200 mg/dL in a nonstressed, ambulatory subject supports the diagnosis of Diabetes Mellitus. Hematocrit Auto (Bld) [Volum e fraction]Ordered By: Nishant Lucio on 11-08-2022 Hematocrit (Bld) [Volume fraction] 37.3 % 34.0-46.4 [facility] Hemoglobin [Mass/volume] in BloodOrdered By: Nishant Lucio on 11-08-2022 Hemoglobin (Bld) [Mass/Vol] 12.5 g/dL 11.8-15.4 [facility] Hepatic Panelon 11-08-2022 Albumin [Mass/Vol] 4.5 g/dL Normal 3.5-5.7 [facility] Comment on above: Performed By: #### B MP, CBC #### [address] Albumin/Globulin [Mass ratio] 1.5 {ratio} Normal [facility] Comment on above: Performed By: #### B MP, CBC #### [facility] [address] ALP [Catalytic activity/Vol] 79 U/L Normal 34-104 [facility] Comment on above: Performed By: #### B MP, CBC #### [facility] [address] [place] [address] ALT [Catalytic activity/Vol] 10 U/L Normal 7-52 [facility] Comment on above: Performed By: #### B MP, CBC #### [facility] [address] [place] [address] AST [Catalytic activity/Vol] 17 U/L Normal 13-39 [facility] Comment on above: Performed By: #### B MP, CBC #### [facility] [address] [place] [address] Bilirubin [Mass/Vol] 0.4 mg/dL Normal 0.3-1.0 [facility] Comment on above: Performed By: #### B MP, CBC #### [facility] [address] [place] [address] Bilirubin,Indirect 0.3 mg/dL Normal [facility] Comment on above: Performed By: #### B MP, CBC #### [facility] [address] [place] [address] Bilirubin.indirect [Mass/Vol] 0.10 mg/dL Normal 0.03-0.18 [facility] Comment on above: Performed By: #### B MP, CBC #### [facility] [address] [place] [address] Globulin (S) [Mass/Vol] 3.1 g/dL Normal [facility] Comment on above: Performed By: #### B MP, CBC #### [facility] [address] [place] [address] [place] Protein [Mass/Vol] 7.6 g/dL Normal 6.4-8.9 [facility] Comment on above: Performed By: #### B MP, CBC #### [facility] [address] [place] [address] [place] INR in Platelet poor plasma by Coagulation assayOrdered By: Nishant Lucio on 11-08-2022 INR Coag (PPP) [Relative time] 0.9 {INR} [facility] Comment on above: INR Therapeutic Rang e A) Pre- and Peroperative OAT started two weeks before surgery. NOT HIP SURGERY: 1.5 - 2.5 HIP SURGERY: 2 - 3B) Primary and secondary prevention of venous THROMBOSIS: 2 - 3C) Active venous thrombosis, pulmonary embolismand prevention of recurrent venous thrombosis: 2 - 3D) Prevention of arterial thromboembolismincluding patients with mechanical heart valves: 3 - 4.5 Ketones Auto test strip (U) [Mass/Vol]Ordered By: Nishant Lucio on 11-08-2022 Ketones (U) [Mass/Vol] Negative Negative [facility] - CoagulationOrde red By: Nishant Lucio on 11-08-2022 PT Coag (PPP) [Time] 10.8 s 9.0-12.9 [facility] - UrinalysisOrder ed By: Nishant Lucio on 11-08-2022 Hyaline casts LM Ql (Urine sed) None seen [LPF] 0-8 [facility] Leukocytes [#/volume] correc brien for nucleated erythrocytes in Blood by Automated counOrdered By: Nishant Lucio on 11-08-2022 WBC corrected for nucl RBC Auto (Bld) [#/Vol] 13.2 10*3/uL 3.8-11.6 [facility] Lymphocytes Auto (Bld) [#/Vo l]Ordered By: Nishant Lucio on 11-08-2022 Lymphocytes (Bld) [#/Vol] 1.9 10*3/uL 1.00-4.8 [facility] Lymphocytes/100 WBC Auto (Bl d)Ordered By: Nishant Lucio on 11-08-2022 Lymphocytes/100 WBC (Bld) 14.7 % . [facility] MCH Auto (RBC) [Entitic mass ]Ordered By: Nishant Lucio on 11-08-2022 MCH (RBC) [Entitic mass] 29.7 pg 24.7-34.3 [facility] MCHC Auto (RBC) [Mass/Vol]Or dered By: Nishant Lucio on 11-08-2022 MCHC (RBC) [Mass/Vol] 33.4 g/dL 32.0-35.[address] [facility] MCV Auto (RBC) [Entitic vol] Ordered By: Nishant Lucio on 11-08-2022 MCV (RBC) [Entitic vol] 88.8 fL 80-100 [facility] Monocyte distribution width [Entitic volume] in Blood by AutomatedOrdered By: Nishant Lucio on 11-08-2022 Monocyte distribution width Auto (Bld) [Entitic vol] 15.48 % 0.00-20.00 [facility] Monocytes Auto (Bld) [#/Vol] Ordered By: Nishant Lucio on 11-08-2022 Monocytes (Bld) [#/Vol] 0.8 10*3/uL 0.0-0.8 [facility] Monocytes/100 WBC Auto (Bld) Ordered By: Nishant Lucio on 11-08-2022 Monocytes/100 WBC (Bld) 6.0 % . [facility] Natriuretic peptide B [Mass/ Vol]Ordered By: Nishant Lucio on 11-08-2022 Natriuretic peptide B (Bld) [Mass/Vol] 123.0 pg/mL 5-100 [facility] Neutrophils Auto (Bld) [#/Vo l]Ordered By: Nishant Lucio on 11-08-2022 Neutrophils (Bld) [#/Vol] 10.3 10*3/uL 1.8-7.7 [facility] Neutrophils/100 WBC Auto (Bl d)Ordered By: Nishant Lucio on 11-08-2022 Neutrophils/100 WBC (Bld) 77.9 % . [facility] Nitrite Test strip Ql (U)Ord ered By: Nishant Lucio on 11-08-2022 Nitrite Ql (U) Negative Negative [facility] No Panel InformationOrdered By: Nishant Lucio on 11-08-2022 Estimated GFR (CKD-EPI) > 60.0 mL/Min [facility] Creatinine Clearance (Chem 47.97 [facility] Nucleated erythrocytes [Pres ence] in Blood by Automated countOrdered By: Nishant Lcuio on 11-08-2022 Nucleated RBC Auto Ql (Bld) 0.0 /100{WBC} 0-0.5 [facility] Partial Thromboplastin Timeo n 11-08-2022 aPTT Coag (Bld) [Time] 29.2 s Normal 25.1-36.5 [facility] Comment on above: Result Comment: PERF ORMED BY: [place] [address] PATHOLOGIST [employer] LAMP DEVELOPER KD ELLISON M.D. Performed By: #### B MP, CBC #### [address] Platelet mean volume Auto (B ld) [Entitic vol]Ordered By: Nishant Lucio on 11-08-2022 Platelet mean volume (Bld) [Entitic vol] 7.0 fL 6.3-10.7 [facility] Platelets Auto (Bld) [#/Vol] Ordered By: Nishant Lucio on 11-08-2022 Platelets (Bld) [#/Vol] 402 10*3/uL 150-450 [facility] Potassium [Moles/volume] in Serum or PlasmaOrdered By: Nishant Lucio on 11-08-2022 Potassium [Moles/Vol] 4.0 mmol/L 3.5-5.[address] [facility] Protein Auto test strip (U) [Mass/Vol]Ordered By: Nishant Lucio on 11-08-2022 Protein (U) [Mass/Vol] Negative Negative [facility] Protein [Mass/volume] in Ser um or PlasmaOrdered By: Nishant Lucio on 11-08-2022 Protein [Mass/Vol] 7.6 g/dL 6.4-8.9 [facility] Prothrombin Time INRon 11-08 INR Coag (PPP) [Relative time] 0.9 {INR} Normal [facility] Comment on above: Result Comment: INR Therapeutic Range A) Pre- and Peroperative OAT started two weeks before surgery. NOT HIP SURGERY: 1.5 - 2.5 HIP SURGERY: 2 - 3 B) Primary and secondary prevention of venous THROMBOSIS: 2 - 3 C) Active venous thrombosis, pulmonary embolism and prevention of recurrent venous thrombosis: 2 - 3 D) Prevention of arterial thromboembolism including patients with mechanical heart valves: 3 - 4.5 Performed By: #### B MP, CBC #### [facility] [address] PT Coag (PPP) [Time] 10.8 s Normal 9.0-12.9 [facility] Comment on above: Performed By: #### B MP, CBC #### [facility] [address] RBC Auto (Bld) [#/Vol]Ordere d By: Nishant Lucio on 11-08-2022 RBC (Bld) [#/Vol] 4.20 10*6/uL 3.60-5.00 [facility] Serum or plasma albumin/glob ulin mass ratioOrdered By: Nishant Lucio on 11-08-2022 Albumin/Globulin [Mass ratio] 1.5 {ratio} [facility] Serum or plasma anion gap de terminationOrdered By: Nishant Lucio on 11-08-2022 Anion gap [Moles/Vol] 12.2 mmol/L 6.0-15.0 [facility] Serum or plasma non-glucuron idated bilirubin measurement (mass/volume)Ordered By: Nishant Lucio on 11-08-2022 Bilirubin.indirect [Mass/Vol] 0.3 mg/dL [facility] Sodium [Moles/volume] in Ser um or PlasmaOrdered By: Nishant Lucio on 11-08-2022 Sodium [Moles/Vol] 127 mmol/L 136-145 [facility] Specific gravity Auto test s trip (U) [Rel density]Ordered By: Nishant Lucio on 11-08-2022 Specific gravity (U) [Rel density] 1.005 1.001-1.030 [facility] Squamous epithelial cells de tection in urine sediment by light microscopyOrdered By: Nishant Lucio on 11-08-2022 Epithelial cells.squamous LM Ql (Urine sed) None seen [HPF] 0-2 [facility] Thyroid Stimulating Hormoneo n 11-08-2022 TSH Qn 1.35 m[IU]/L Normal 0.45-5.33 [facility] Comment on above: Result Comment: PERF ORMED BY: [place] [address] PATHOLOGIST [employer]EL[employer] KD ELLISON M.D. Performed By: #### B MP, CBC #### [facility] [address] [place] [id number] [facility] Thyrotropin [Units/volume] i n Serum or PlasmaOrdered By: Nishant Lucio on 11-08-2022 TSH Qn 1.35 m[IU]/L 0.45-5.33 [facility] Thyroxine (T4) free [Mass/vo lume] in Serum or PlasmaOrdered By: Nishant Lucio on 11-08-2022 Free T4 [Mass/Vol] 0.96 ng/dL 0.61-1.12 [facility] Troponin I High Sensitivityo n 11-08-2022 Troponin I High Sensitivity 4.6 pg/mL Normal 0.0-15.0 [facility] Comment on above: Result Comment: PERF ORMED BY: [place] [address] PATHOLOGIST [employer] DEVEL[employer] KD ELLISON M.D. Performed By: #### B MP, CBC #### [facility] [address] [place] [address] Troponin I.cardiac [Mass/vol ume] in Serum or Plasma by Detection limit <= 0.01 ng/Ordered By: Nishant Lucio on 11-08-2022 Troponin I.cardiac DL <= 0.01 ng/mL [Mass/Vol] 4.6 pg/mL 0.0-15.0 [facility] Urea nitrogen [Mass/volume] in Serum or PlasmaOrdered By: Nishant Lucio on 11-08-2022 Urea nitrogen [Mass/Vol] 11 mg/dL 7-25 [facility] Urine bacteria detection by automated methodOrdered By: Nishant Lucio on 11-08-2022 Bacteria Auto Ql (U) None seen None Seen [facility] Urine clarity by refractomet ry automatedOrdered By: Nishant Lucio on 11-08-2022 Clarity Refractometry automated (U) Clear Clear [facility] Urine glucose measurement by automated test strip (mass/volume)Ordered By: Nishant Lucio on 11-08-2022 Glucose Auto test strip (U) [Mass/Vol] Normal mg/dL Normal [facility] Urine hemoglobin detection b y automated test stripOrdered By: Nishant Lucio on 11-08-2022 Hemoglobin Auto test strip Ql (U) Negative Negative [facility] Urine leukocyte esterase det ection by automated test stripOrdered By: Nishant Lucio on 11-08-2022 Leukocyte esterase Auto test strip Ql (U) 2+ Negative [facility] Urobilinogen Auto test strip (U) [Mass/Vol]Ordered By: Nishant Lucio on 11-08-2022 Urobilinogen (U) [Mass/Vol] Normal mg/dL Normal [facility] WBC Auto (Bld) [#/Vol]Ordere d By: Nishant Lucio on 11-08-2022 WBC (Bld) [#/Vol] 13.2 10*3/uL 3.8-11.6 [facility] XR chest 1V portableon 11-08 XR chest 1V portable [place] [address] XRay Report Signed Patient: Arianna Martinez MR#: [id number] 36 : 1950 Acct:[id number] Age/Sex: 72 / F ADM Date: 11/08/22 Loc: ER Room: Type: [facility] ER Attending Dr: Copies to: Nishant Lucio DO Ordering Provider: Nishant Lucio DO Date of Service: 11/08/22 XR/XR chest 1V portable: Weakness PORTABLE AP ERECT CHEST 1749 hours CLINICAL HISTORY: Dizziness and lethargy COMPARISON: None The heart is top normal in size. There is minor residual interstitial change. There is slight blunting of the left lateral costophrenic angle where minimal pleural-parenchymal change is not excluded. There is no pneumothorax. The bony structures are osteopenic. There is dextroscoliotic curvature. XR/XR chest 1V portable IMPRESSION: MINOR PARENCHYMAL CHANGES AND QUESTION OF MINIMAL LEFT PLEURAL EFFUSION. Impression dictated by: Kitty Dee M.D.11/08/2022 6:49 PM Dictation Location: [place] [address] Transcribed By: [facility] 11/08/221848 Dictated By: Kitty Dee MD 11/08/221846 Signed By: 11/08/221848 Normal [facility] pH Auto test strip (U)Ordere d By: Nishant Lucio on 11-08-2022 pH (U) 6.0 [pH] 5.0-9.0 [facility] Office Visit (Cardiology)on 10-16-2022 Follow-up visit Diagnoses/Problems Assessed CHF (congestive heart failure), NYHA class II (428.0) (I50.9) Hypertension (401.9) (I10) Hypokalemia (276.8) (E87.6) Hyponatremia (276.1) (E87.1) Never a smoker Systolic CHF (428.20,428.0) (I50.20) Left bundle-branch block (426.3) (I44.7) Body mass index (BMI) of 23.0 to 23.9 in adult (V85.1) (Z68.23) Orders Abnormal EKG, CHF (congestive heart failure), NYHA class II, Hypokalemia, Hyponatremia Echocardiogram; Status:Hold For - Scheduling,Retrospective Authorization; Requested for:[id number]; CHF (congestive heart failure), NYHA class II, Hypokalemia, Hyponatremia Start: Digoxin 125 MCG Oral Tablet; TAKE 1 TABLET 3 DAYS A WEEK Basic Metabolic Panel; Status:Active - Retrospective Authorization; Requested for:[id number]; Cardiology - Electrophysiology Referral Evaluation and Treatment Evaluate AND Treat for Bi Vi ICD Status: Hold For - Scheduling,Retrospective Authorization Requested for: [id number] Brain Natriuretic Peptide BNP; Status:Active - Retrospective Authorization; Requested for:[id number]; SocHx: Never a smoker Tobacco Use Screening; Status:Complete; Done: [id number] Patient Instructions Please bring all medicines, vitamins, and herbal supplements with you when you come to the office. Prescriptions will not be filled unless you are compliant with your follow up appointments or have a follow up appointment scheduled as per instruction of your physician. Refills should be requested at the time of your visit. Echo and blood work, Referral to Dr. Strong for possible ICD Follow up in 6 weeks Chief Complaint ARIANNA MARTINEZ is being seen for a 4 week follow-up of. History of Present Illness Patient with systolic left heart failure is accompanied by daughter to the office. Patient is progressing well in cardiac rehabilitation. She started doing 5 minutes of activity now is up to 20 minutes of activity, and daughter says she can see a physical improvement. Orthopnea PND or lower extremity edema. Vital signs reviewed. She is on maximum recommended dosage for carvedilol, we are unable to increase the losartan at this time because blood pressure remains on the low side. Also sodium may drop further with up titration of losartan. No recent laboratory data available to review. On 07/31/2022, sodium was 128 and potassium was 4.5 creatinine 0.65 GFR greater than 90. Assessment: 1. Nonspecific intraventricular conduction block, QRS duration 140 ms on EKG 07/17/2022 2. Chronic systolic left heart failure related to nonischemic cardiomyopathy, functional class II 3. Tendency for hyponatremia 4. Hypertension 5. Nonischemic myocardial injury-subsequent visit 6. Echocardiogram June 2022-LVEF 25% abnormal septal motion consistent with left bundle branch block global hypokinesis normal RV systolic function trace tricuspid regurgitation aortic sclerosis mitral sclerosis normal IVC, left atrial diameter 3.5 cm, left atrial volume index 26 mm per metered squared 7. Echocardiogram January 2022-LVEF 35 to 40% left atrial volume index 30 mm per metered squared LV end-systolic dimension 3.9 cm left atrial volume index 30.2 mm per metered squared 8. Entresto prohibitively expensive. 9. GFR greater than 60 creatinine clearance 48 6. Nephrology had recommended discontinuation of sertraline because it could be contributory to hypokalemia 7. Previous cardiology notes suggest that patient probably had Takotsubo for her cardiomyopathy, mid ventricular variant 8. Patient has had a cardiac catheterization at an outside facility around June 2021, and based on the reports there was no coronary artery disease. Takotsubo cardiomyopathy was suspected. I do not have the report and this has been requested. Patient is clinically doing better although her LVEF from June 2022 was only 25%. She does have a left bundle branch block and hence would be a candidate for biventricular ICD, but we have not maximized her medical therapy for congestive heart failure. Due to hypo natremia, will not use spironolactone. Entresto prohibitively expensive. Recommendations: 1. Digoxin 0.125 mg 3 days a week p.o. Sunday or Sunday 2. Basic metabolic profile and BNP level in the near future 3. Echocardiogram to be repeated in the near future 4. Initiate EP referral for BiV ICD if LVEF less than 40%. 5. Follow-up 6 to 8 weeks sooner if interval problems arise. 6. We will strongly consider discontinuation of Lasix at next office visit based on echo findings. Surgical History Problems Denied: History of Colonoscopy History of Knee surgery Current Meds Medication NameInstruction Carvedilol 25 MG Oral TabletTAKE 1 TABLET TWICE DAILY. Furosemide 20 MG Oral TabletTAKE 1/2 TABLET DAILY. Melatonin 10 MG Oral Tabletas needed Potassium Chloride Praveena ER 20 MEQ Oral Tablet Extended ReleaseTAKE 1 TABLET DAILY. Valsartan 160 MG Oral TabletTAKE 1 TABLET DAILY. Allergies (more content not included)... Normal [employer] Tobacco Screening.on 023 Fall risk assessment a) No falls within the last year [facility] [employer] DO Work Phone: Tobacco use status [facility] b) No [facility] [employer] DO Work Phone: Office Visit (Cardiology)on 09-04-2022 Follow-up visit Diagnoses/Problems Assessed CHF (congestive heart failure), NYHA class II (428.0) (I50.9) Hypertension (401.9) (I10) Body mass index (BMI) of 23.0 to 23.9 in adult (V85.1) (Z68.23) Hypokalemia (276.8) (E87.6) Hyponatremia (276.1) (E87.1) Systolic CHF (428.20,428.0) (I50.20) Never a smoker Medication course changed (V58.69) (Z79.899) Orders Abnormal EKG, Body mass index (BMI) of 23.0 to 23.9 in adult, CHF (congestive heart failure), NYHA class II, Health Maintenance Basic Metabolic Panel; Status:Active - Retrospective Authorization; Requested for:04Sep2022; Body mass index (BMI) of 23.0 to 23.9 in adult Healthy Weight Tips; Status:Complete - Retrospective Authorization; Done: 04Sep2022 Some eating tips that can help you lose weight.; Status:Complete - Retrospective Authorization; Done: 04Sep2022 CHF (congestive heart failure), NYHA class II, Hypertension, Hypokalemia, Hyponatremia Start: Furosemide 20 MG Oral Tablet; TAKE 1/2 TABLET DAILY CHF (congestive heart failure), NYHA class II, Hypertension, Systolic CHF Start: Carvedilol 12.5 MG Oral Tablet; TAKE 1 TABLET TWICE DAILY SocHx: Never a smoker Tobacco Use Screening; Status:Complete; Done: 04Sep2022 Unlinked Stop: Carvedilol 6.25 MG Oral Tablet Patient Instructions Please bring all medicines, vitamins, and herbal supplements with you when you come to the office. Prescriptions will not be filled unless you are compliant with your follow up appointments or have a follow up appointment scheduled as per instruction of your physician. Refills should be requested at the time of your visit. Follow up in 4 weeks Chief Complaint ARIANNA MARTINEZ is being seen for a 2 month follow-up of. History of Present Illness 72-year-old female with hypertension congestive heart failure functional class II LV systolic dysfunction nonischemic cardiomyopathy presents for follow-up. Accompanied by daughter Reports feeling well, activity level is increasing, appetite is increasing, energy level is increasing. 10 pound weight gain since last office visit not water weight, patient says that her appetite is better and she is eating more food, when she came from the hospital she was nauseated and did not feel like eating. Laboratory data from July 2022 reviewed potassium was 3.9 GFR normal sodium 133 Participating in cardiac rehabilitation. Says that at times her blood pressure is elevated, but postexercise it goes into the 90s at times, no presyncope syncope or falls. On current medical regimen sodium has improved to 133. Multiple caffeinated beverages probably at least 10 a day, I suggested that she cut back a little bit at least. Overall she is doing well. Assessment: 1. Nonspecific intraventricular conduction block, QRS duration 140 ms on EKG 07/17/2022 2. Chronic systolic left heart failure related to nonischemic cardiomyopathy, functional class II 3. Tendency for hyponatremia 4. Hypertension 5. Nonischemic myocardial injury-subsequent visit 6. Echocardiogram June 2022-LVEF 25% abnormal septal motion consistent with left bundle branch block global hypokinesis normal RV systolic function trace tricuspid regurgitation aortic sclerosis mitral sclerosis normal IVC, left atrial diameter 3.5 cm, left atrial volume index 26 mm per metered squared 7. Echocardiogram January 2022-LVEF 35 to 40% left atrial volume index 30 mm per metered squared LV end-systolic dimension 3.9 cm left atrial volume index 30.2 mm per metered squared 8. Entresto prohibitively expensive. 9. GFR greater than 60 creatinine clearance 48 6. Nephrology had recommended discontinuation of sertraline because it could be contributory to hypokalemia 7. Previous cardiology notes suggest that patient probably had Takotsubo for her cardiomyopathy, mid ventricular variant Patient is clinically doing better although her LVEF from June 2022 was only 25%. She does have a left bundle branch block and hence would be a candidate for biventricular ICD, but we have not maximized her medical therapy for congestive heart failure. Due to hypo natremia, will not use spironolactone. Entresto prohibitively expensive. Recommendations: 1. Orthostatics were checked and she is not orthostatic 2. Increase carvedilol to 12.5 mg p.o. twice daily 3. Decrease furosemide to 10 mg daily 4. After 2 weeks increase carvedilol further to 25 mg p.o. twice daily 5. Continue cardiac rehabilitation 6. Follow-up with me in 4 to 6 weeks sooner if interval problems arise Current Meds Medication NameInstruction Carvedilol 6.25 MG Oral TabletTAKE 1 TABLET TWICE DAILY WITH MEALS. Furosemide 20 MG Oral TabletTAKE 1 TABLET DAILY. Melatonin 10 MG Oral Tabletas needed Potassium Chloride Praveena ER 20 MEQ Oral Tablet Extended ReleaseTAKE 1 TABLET DAILY. Valsartan 160 MG Oral TabletTAKE 1 TABLET DAILY. Allergies Medication No Known Drug Allergies Recorded By: Estefany Anna; 07/14/2022 4:17:53 PM Social History Problem (more content not included)... Normal [employer] Tobacco Screening.on 023 Adult depression screening assessment No [facility] [employer] DO Work Phone: Fall risk assessment a) No falls within the last year [facility] [employer] DO Work Phone: Tobacco use status [facility] b) No [facility] Work Phone: PROF CHEM 8 (BAS METB)on Anion gap [Moles/Vol] 13.6 mmol/L Normal [facility] Comment on above: Performed By: #### B MP #### [facility] [address] [place] [address] [address] So Carbajal Calcium [Mass/Vol] 8.7 mg/dL Normal 8.5-10.1 [facility] Comment on above: Performed By: #### B MP #### [facility] [address] [place] [address] [address] So Carbajal Chloride [Moles/Vol] 97 mmol/L Critically low 98-107 [facility] Comment on above: Performed By: #### B MP #### [facility] [address] [address] [address] So Carbajal CO2 [Moles/Vol] 26.3 mmol/L Normal 21.0-32.0 [facility] Comment on above: Performed By: #### B MP #### [facility] [address] [address] [address] So Carbajal Creatinine [Mass/Vol] 0.67 mg/dL Normal 0.55-1.02 [facility] Comment on above: Performed By: #### B MP #### [facility] [address] [place] [address] [address] So Carbajal EGFR-AF JAPANESE >60 Normal >=60 [facility] Comment on above: Performed By: #### B MP #### [facility] [address] [place] [address] [address] So Carbajal EGFR-NON AF JAPANESE >60 Normal >=60 [facility] Comment on above: Performed By: #### B MP #### [facility] [address] [place] [place] [address] [address] So Carbajal Glucose [Mass/Vol] 89 mg/dL Normal 74-106 [facility] Comment on above: Performed By: #### B MP #### [facility] [address] [place] [address] [address] So Carbajal Potassium [Moles/Vol] 3.9 mmol/L Normal 3.5-5.1 [facility] Comment on above: Performed By: #### B MP #### [facility] [address] [place] [address] [address] So Carbajal Sodium [Moles/Vol] 133 mmol/L Critically low 136-145 [facility] Comment on above: Performed By: #### B MP #### [facility] [address] [place] [address] [address] So Carbajal Urea nitrogen [Mass/Vol] 7.0 mg/dL Normal 7.0-18.0 [facility] Comment on above: Performed By: #### B MP #### [facility] [address] [place] [address] [address] So Carbajal Urea nitrogen/Creatinine [Mass ratio] 10.4 mg/mg Normal [facility] Comment on above: Performed By: #### B MP #### [facility] [address] [place] [address] [address] So Carbajal Comprehensive Metabolic Pane [facility] 08-09-2022 Albumin/Globulin [Mass ratio] 1.7 {ratio} Normal [facility] Comment on above: Performed By: #### O SMO #### [facility] [address] [place] [address] [place] ALP [Catalytic activity/Vol] 69 U/L Normal 34-104 [facility] Comment on above: Result Comment: PERF ORMED BY: [place] [address] PATHOLOGIST [employer] DEVEL[employer] KD ELLISON M.D. Performed By: #### O SMO #### [facility] [address] [place] [address] [place] ALT [Catalytic activity/Vol] 10 U/L Normal 7-52 [facility] Comment on above: Performed By: #### O SMO #### [address] Anion gap [Moles/Vol] 13.0 mmol/L Normal 6.0-15.0 [facility] Comment on above: Performed By: #### O SMO #### [address] AST [Catalytic activity/Vol] 18 U/L Normal 13-39 [facility] Comment on above: Performed By: #### O SMO #### [address] Bilirubin [Mass/Vol] 0.5 mg/dL Normal 0.3-1.0 [facility] Comment on above: Performed By: #### O SMO #### [address] Chloride [Moles/Vol] 97 mmol/L Low 98-107 [facility] Comment on above: Performed By: #### O SMO #### [address] CO2 [Moles/Vol] 25.6 mmol/L Normal 21.0-31.0 [facility] Comment on above: Performed By: #### O SMO #### [address] Globulin (S) [Mass/Vol] 2.7 g/dL Normal [facility] Comment on above: Performed By: #### O SMO #### [address] Protein [Mass/Vol] 7.3 g/dL Normal 6.4-8.9 [facility] Comment on above: Performed By: #### O SMO #### [address] Sodium [Moles/Vol] 131 mmol/L Low 136-145 [facility] Comment on above: Performed By: #### O SMO #### [address] Renal Function Panelon 08-09 Albumin [Mass/Vol] 4.6 g/dL Normal 3.5-5.7 [facility] Comment on above: Order Comment: PT IS FASTING Result Comment: PERF ORMED BY: [place] [address] PATHOLOGIST [employer] DEVEL[employer] KD ELLISON M.D. Performed By: #### M G, BMP, CBC #### [facility] [address] [place] [address] Performed By: #### O SMO #### [address] Anion gap [Moles/Vol] 14.9 mmol/L Normal 6.0-15.0 [facility] Comment on above: Order Comment: PT IS FASTING Performed By: #### M G, BMP, CBC #### [address] Calcium [Mass/Vol] 9.6 mg/dL Normal 8.6-10.3 [facility] Comment on above: Order Comment: PT IS FASTING Performed By: #### M G, BMP, CBC #### [facility] [address] [place] [address] Performed By: #### O SMO #### [address] Chloride [Moles/Vol] 98 mmol/L Normal 98-107 [facility] Comment on above: Order Comment: PT IS FASTING Performed By: #### M G, BMP, CBC #### [facility] [address] [place] [address] CO2 [Moles/Vol] 23.7 mmol/L Normal 21.0-31.0 [facility] Comment on above: Order Comment: PT IS FASTING Performed By: #### M G, BMP, CBC #### [facility] [address] [place] [address] Creatinine [Mass/Vol] 0.69 mg/dL Normal 0.60-1.[address] [facility] Comment on above: Order Comment: PT IS FASTING Performed By: #### M MONIQUE Blount, CBC #### [facility] [address] [place] [address] Performed By: #### O SMO #### [place] [address] [place] GFR/1.73 sq M.predicted MDRD (S/P/Bld) [Vol rate/Area] mL/min/{1.73_m2} [facility] Comment on above: Order Comment: PT IS FASTING Performed By: #### M Mine, BMP, CBC #### [address] Performed By: #### O SMO #### [address] Glucose [Mass/Vol] 83 mg/dL Normal 70-100 [facility] Comment on above: Order Comment: PT IS FASTING Result Comment: [facility] Glucose Reference Range is dependent on time and content of last meal. Glucose of more than 200 mg/dL in a nonstressed, ambulatory subject supports the diagnosis of Diabetes Mellitus. ADA recommended reference range Performed By: #### M MONIQUE Blount, CBC #### [facility] [address] [place] [address] Performed By: #### O SMO #### [address] Phosphate [Mass/Vol] 4.8 mg/dL Normal 3.7-7.2 [facility] Comment on above: Order Comment: PT IS FASTING Performed By: #### M MONIQUE Blount, CBC #### [address] Potassium [Moles/Vol] 4.6 mmol/L Normal 3.5-5.[address] [facility] Comment on above: Order Comment: PT IS FASTING Performed By: #### M Mine, BMP, CBC #### [address] Performed By: #### O SMO #### [address] Sodium [Moles/Vol] 132 mmol/L Low 136-145 [facility] Comment on above: Order Comment: PT IS FASTING Performed By: #### M Mine, MONIQUE, CBC #### [facility] [address] Urea nitrogen [Mass/Vol] 9 mg/dL Normal 7-25 [facility] Comment on above: Order Comment: PT IS FASTING Performed By: #### M G, BMP, CBC #### [facility] [address] [place] [address] [place] Performed By: #### O SMO #### [facility] [address] Office Visit (Cardiology)on 07-17-2022 Follow-up visit Diagnoses/Problems Assessed Systolic CHF (428.20,428.0) (I50.20) Hyponatremia (276.1) (E87.1) Abnormal EKG (794.31) (R94.31) Patient new to provider Medication course changed (V58.69) (Z79.899) Hypokalemia (276.8) (E87.6) Body mass index (BMI) of 22.0 to 22.9 in adult (V85.1) (Z68.22) Never a smoker Orders Hypokalemia Start: Potassium Chloride Praveena ER 20 MEQ Oral Tablet Extended Release; TAKE 1 TABLET TWICE DAILY Hyponatremia, Systolic CHF Basic Metabolic Panel; Status:Active; Requested for:[id number]; Brain Natriuretic Peptide BNP; Status:Active; Requested for:[id number]; SocHx: Never a smoker Tobacco Use Screening; Status:Complete; Done: [id number] Systolic CHF Start: Valsartan 80 MG Oral Tablet (Diovan); TAKE 1 TABLET DAILY Cardiac Rehab Referral Evaluation and Treatment Evaluate AND Treat Status: Hold For - Scheduling Requested for: 17Jul2022 Agreement : I agree to have my patient participate in the phase III outpatient cardiac rehabilitation program after completion of the phase II program. Consent : I consent to have my patient participate in the cardiac rehabilitation program. I will continue regular medical care of my patient throughout his/her participation in the program. Individualized Treatment Plan and Exercise Prescription : Request the Chief Vendor Quality to share responsibility for developing an ITP and exercise prescription for your patient only during enrollment in the phase II program I authorize the Cardiac Rehabilitation Department to : Current lab values are helpful in order to assess the lipid status and individualize diet therapy. A venous blood sample will be drawn and lipids analyzed at the laboratory I authorize the Cardiac Rehabilitation Department to : Schedule a symptom limited graded exercise test with 12 lead ECG prior to starting cardiac rehabilitation and at discharge, if needed. Patient Instructions Please bring all medicines, vitamins, and herbal supplements with you when you come to the office. Prescriptions will not be filled unless you are compliant with your follow up appointments or have a follow up appointment scheduled as per instruction of your physician. Refills should be requested at the time of your visit. Diovan 80 mg one daily BNP and chem 6 in 7-10 days Cardiac rehab Follow up in 2 months The provider reviewed the following test(s) and result(s) with the patient: ECG Chief Complaint [facility] [place]. History of Present Illness Patient is new to this provider. She is accompanied by her ztknnyyh-yj-pil Josefa to the office. She was recently hospitalized and I have reviewed records. 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 She has an appointment with sealer sander. She has a history of left bundle branch block and chronic systolic heart failure related to nonischemic cardiomyopathy, but she does not report any symptoms pertaining to that and does not report any limitation in her quality of life which I find very intriguing. Her kvazkgav-xq-erp subsequently told me that she used to be short of breath and fatigued easily. She is noted to have left ventricular ejection fraction as low as 10 to 15%. She was placed on guideline directed medical therapy with carvedilol Jardiance Entresto and Aldactone, with improvement in LVEF to 35 to 40%. She however developed hyponatremia. She is never a smoker. She drinks 1 alcoholic beverage per week. She denies palpitations lightheadedness presyncope syncope, orthopnea PND claudication or lower extremity edema no TIA or CVA type symptoms Laboratory data from 07/06/2022 showed hemoglobin of 13 hematocrit 38 platelets 426 white blood cell count 7.9, GFR greater than 60 sodium 125 potassium 3.7 creatinine clearance 48 glucose 92 EKG today normal sinus rhythm at 70 with left atrial abnormality, QRS duration 140 ms nonspecific intraventricular conduction block. Assessment: 1. Nonspecific intraventricular conduction block, QRS duration 140 ms on EKG 07/17/2022 2. Chronic systolic left heart failure related to nonischemic cardiomyopathy, functional class II 3. Tendency for hyponatremia 4. Hypertension 5. Nonischemic myocardial injury-subsequent visit 6. Echocardiogram June 2022-LVEF 25% abnormal septal motion consistent with left bundle branch block global hypokinesis normal RV systolic function trace tricuspid regurgitation aortic sclerosis mitral sclerosis normal IVC, left atrial diameter 3.5 cm, left atrial volume index 26 mm per metered squared 7. Echocardiogram January 2022-LVEF 35 to 40% left atrial volume index 30 mm per metered squared LV end-systolic dimension 3.9 cm left atrial volume index 30.2 mm per metered squared 8. Entresto prohibitively expensive. 9. GFR greater than 60 creatinine clearance 48 6. Nephrology had recommended discontinuation of sertraline because it could be contributory to hypokalemia Recommendations: 1. Stop Las (more content not included)... Normal [employer] Tobacco Screening.on 023 Adult depression screening assessment [facility] Work Phone: Fall risk assessment a) No falls within the last year [facility] Bulb 250 DO Work Phone: Tobacco use status [facility] b) No [facility] [employer] 250 DO Work Phone: Basic Metabolic Panelon 06-24 Anion gap [Moles/Vol] 10.5 mmol/L Normal 6.0-15.0 [facility] Comment on above: Performed By: #### B JOSY, CBC #### [facility] [address] [place] [id number] [place] Calcium [Mass/Vol] 8.7 mg/dL Normal 8.6-10.3 [facility] Comment on above: Performed By: #### B JOSY, CBC #### [facility] [address] [place] [address] [place] Chloride [Moles/Vol] 98 mmol/L Normal 98-107 [facility] Comment on above: Performed By: #### B JOSY, CBC #### [facility] [address] [place] [address] [place] CO2 [Moles/Vol] 24.2 mmol/L Normal 21.0-31.0 [facility] Comment on above: Performed By: #### B MP, CBC #### [facility] [address] Creatinine [Mass/Vol] 0.61 mg/dL Normal 0.60-1.[address] [facility] Comment on above: Performed By: #### B MP, CBC #### [facility] [address] [place] [address] [place] Creatinine Clr Calc Pharmacy 47.97 Normal [facility] Comment on above: Result Comment: PERF ORMED BY: [place] [address] PATHOLOGIST PHP LAMP DEVELOPER KD ELLISON M.D. Performed By: #### B MP, CBC #### [place] [address] [place] GFR/1.73 sq M.predicted MDRD (S/P/Bld) [Vol rate/Area] mL/min/{1.73_m2} Normal [facility] Comment on above: Performed By: #### B MP, CBC #### [address] Glucose [Mass/Vol] 95 mg/dL Normal 70-100 [facility] Comment on above: Result Comment: [facility] Glucose Reference Range is dependent on time and content of last meal. Glucose of more than 200 mg/dL in a nonstressed, ambulatory subject supports the diagnosis of Diabetes Mellitus. ADA recommended reference range Performed By: #### B MP, CBC #### [facility] [address] [place] [address] [place] Potassium [Moles/Vol] 3.7 mmol/L Normal 3.5-5.[address] [facility] Comment on above: Performed By: #### B MP, CBC #### [facility] [address] [place] [address] [place] Sodium [Moles/Vol] 129 mmol/L Low 136-145 [facility] Comment on above: Performed By: #### B MP, CBC #### [address] Urea nitrogen [Mass/Vol] 7 mg/dL Normal 7-25 [facility] Comment on above: Performed By: #### B MP, CBC #### [address] Complete Blood Count Auto Di ffon 07-08-2022 Basophils (Bld) [#/Vol] 0.1 10*3/uL Normal 0.0-0.2 [facility] Comment on above: Result Comment: PERF ORMED BY: [place] [address] PATHOLOGIST PHP LAMP DEVELOPER KD ELLISON M.D. Performed By: #### B MP, CBC #### [address] Basophils/100 WBC (Bld) 1.3 % Normal . [facility] Comment on above: Performed By: #### B MP, CBC #### [address] Eosinophils (Bld) [#/Vol] 0.0 10*3/uL Normal 0.0-0.45 [facility] Comment on above: Performed By: #### B MP, CBC #### [address] Eosinophils/100 WBC (Bld) 0.6 % Normal . [facility] Comment on above: Performed By: #### B MP, CBC #### [address] Erythrocyte distribution width (RBC) [Ratio] 13.5 % Normal 11.9-15.3 [facility] Comment on above: Performed By: #### B MP, CBC #### [address] Hematocrit (Bld) [Volume fraction] 33.0 % Low 34.0-46.4 [facility] Comment on above: Performed By: #### B MP, CBC #### [address] Hemoglobin (Bld) [Mass/Vol] 11.5 g/dL Low 11.8-15.4 [facility] Comment on above: Performed By: #### B MP, CBC #### [address] Lymphocytes (Bld) [#/Vol] 2.2 10*3/uL Normal 1.00-4.8 [facility] Comment on above: Performed By: #### B MP, CBC #### [address] Lymphocytes/100 WBC (Bld) 32.8 % Normal . [facility] Comment on above: Performed By: #### B MP, CBC #### [address] MCH (RBC) [Entitic mass] 31.0 pg Normal 24.7-34.3 [facility] Comment on above: Performed By: #### B MP, CBC #### [address] MCV (RBC) [Entitic vol] 88.9 fL Normal 80-100 [facility] Comment on above: Performed By: #### B MP, CBC #### [address] Mean Corpuscular HGB Conc 34.8 g/dL Normal 32.0-35.0 [facility] Comment on above: Performed By: #### B MP, CBC #### [address] Monocytes (Bld) [#/Vol] 0.9 10*3/uL High 0.0-0.8 [facility] Comment on above: Performed By: #### B MP, CBC #### [place] [address] [place] Monocytes/100 WBC (Bld) 13.0 % Normal . [facility] Comment on above: Performed By: #### B MP, CBC #### [address] Neutrophils (Bld) [#/Vol] 3.5 10*3/uL Normal 1.8-7.7 [facility] Comment on above: Performed By: #### B MP, CBC #### [facility] [address] Neutrophils/100 WBC (Bld) 52.3 % Normal . [facility] Comment on above: Performed By: #### B MP, CBC #### [facility] [address] NRBC% 0.1 /100{WBC} Normal 0-0.5 [facility] Comment on above: Performed By: #### B MP, CBC #### [facility] [address] Platelet mean volume (Bld) [Entitic vol] 7.5 fL Normal 6.3-10.7 [facility] Comment on above: Performed By: #### B MP, CBC #### [facility] [address] Platelets (Bld) [#/Vol] 362 10*3/uL Normal 150-450 [facility] Comment on above: Performed By: #### B MP, CBC #### [address] RBC (Bld) [#/Vol] 3.71 10*6/uL Normal 3.60-5.00 [facility] Comment on above: Performed By: #### B MP, CBC #### [address] WBC (Bld) [#/Vol] 6.6 10*3/uL Normal 3.8-11.6 [facility] Comment on above: Performed By: #### B MP, CBC #### [address] Magnesiumon 07-08-2022 Magnesium [Mass/Vol] 2.0 mg/dL Normal 1.9-2.7 [facility] Comment on above: Order Comment: Comme nt adds on Result Comment: PERF ORMED BY: [address] [place] [address] PATHOLOGIST PHP LAMP DEVELOPER KD ELLISON M.D. Performed By: #### O SMO #### [address] Sodiumon 07-08-2022 Sodium [Moles/Vol] 128 mmol/L Low 136-145 [facility] Comment on above: Result Comment: PERF ORMED BY: [place] [address] PATHOLOGIST PHP LAMP DEVELOPER KD ELLISON M.D. Performed By: #### MONIQUE Dykes, CBC #### [address] Basic Metabolic Panelon 06-24 Anion gap [Moles/Vol] 9.6 mmol/L Normal 6.0-15.[address] [facility] Comment on above: Performed By: #### MONIQUE Dykes, CBC #### [address] Calcium [Mass/Vol] 8.3 mg/dL Low 8.6-10.3 [facility] Comment on above: Performed By: #### MONIQUE Dykes, CBC #### [address] Chloride [Moles/Vol] 96 mmol/L Low 98-107 [facility] Comment on above: Performed By: #### MONIQUE Dykes, CBC #### [address] CO2 [Moles/Vol] 23.1 mmol/L Normal 21.0-31.0 [facility] Comment on above: Performed By: #### MONIQUE Dykes, CBC #### [facility] [address] [place] [address] Creatinine [Mass/Vol] 0.54 mg/dL Low 0.60-1.[address] [facility] Comment on above: Performed By: #### MONIQUE Dykes, CBC #### [place] [address] [place] Creatinine Clr Calc Pharmacy 47.97 Normal [facility] Comment on above: Result Comment: PERF ORMED BY: [place] [address] PATHOLOGIST PHP LAMP DEVELOPER KD ELLISON M.D. Performed By: #### MONIQUE Dykes, CBC #### [facility] [address] [place] [address] [place] GFR/1.73 sq M.predicted MDRD (S/P/Bld) [Vol rate/Area] mL/min/{1.73_m2} [facility] Comment on above: Performed By: #### MONIQUE Dykes, CBC #### [address] Glucose [Mass/Vol] 92 mg/dL Normal 70-100 [facility] Comment on above: Result Comment: [facility] Glucose Reference Range is dependent on time and content of last meal. Glucose of more than 200 mg/dL in a nonstressed, ambulatory subject supports the diagnosis of Diabetes Mellitus. ADA recommended reference range Performed By: #### MONIQUE Dykes, CBC #### [place] [address] [place] Potassium [Moles/Vol] 3.7 mmol/L Normal 3.5-5.[address] [facility] Comment on above: Performed By: #### MONIQUE Dykes, CBC #### [place] [address] [place] Sodium [Moles/Vol] 125 mmol/L Low 136-145 [facility] Comment on above: Performed By: #### MONIQUE Dykes, CBC #### [facility] [address] [place] [address] [place] Urea nitrogen [Mass/Vol] 13 mg/dL Normal 7-25 [facility] Comment on above: Performed By: #### MONIQUE Dykes, CBC #### [place] [address] [place] Complete Blood Count Auto Di ffon 07-07-2022 Basophils (Bld) [#/Vol] 0.1 10*3/uL Normal 0.0-0.2 [facility] Comment on above: Result Comment: PERF ORMED BY: [place] [address] PATHOLOGIST PHP LAMP DEVELOPER KD ELLISON M.D. Performed By: #### M MONIQUE Blount, CBC #### [facility] [address] [place] [address] Basophils/100 WBC (Bld) 0.7 % Normal . [facility] Comment on above: Performed By: #### MONIQUE Dykes, CBC #### [facility] [address] [place] [address] Eosinophils (Bld) [#/Vol] 0.0 10*3/uL Normal 0.0-0.45 [facility] Comment on above: Performed By: #### MONIQUE Dykes, CBC #### [facility] [address] [place] [address] Eosinophils/100 WBC (Bld) 0.5 % Normal . [facility] Comment on above: Performed By: #### MONIQUE Dykes, CBC #### [facility] [address] [place] [address] Erythrocyte distribution width (RBC) [Ratio] 13.1 % Normal 11.9-15.3 [facility] Comment on above: Performed By: #### MONIQUE Dykes, CBC #### [facility] [address] [place] [address] Hematocrit (Bld) [Volume fraction] 33.1 % Low 34.0-46.4 [facility] Comment on above: Performed By: #### MONIQUE Dykes, CBC #### [facility] [address] [place] [address] [place] Hemoglobin (Bld) [Mass/Vol] 11.5 g/dL Low 11.8-15.4 [facility] Comment on above: Performed By: #### MONIQUE Dykes, CBC #### [facility] [address] [place] [address] [place] Lymphocytes (Bld) [#/Vol] 1.9 10*3/uL Normal 1.00-4.8 [facility] Comment on above: Performed By: #### Britton Blount BMP, CBC #### [facility] [address] [place] [address] [place] Lymphocytes/100 WBC (Bld) 26.7 % Normal . [facility] Comment on above: Performed By: #### Britton Blount, BMP, CBC #### [facility] [address] MCH (RBC) [Entitic mass] 30.9 pg Normal 24.7-34.3 [facility] Comment on above: Performed By: #### Britton Blount, BMP, CBC #### [facility] [address] MCV (RBC) [Entitic vol] 89.1 fL Normal 80-100 [facility] Comment on above: Performed By: #### Britton Blount BMP, CBC #### [address] Mean Corpuscular HGB Conc 34.7 g/dL Normal 32.0-35.0 [facility] Comment on above: Performed By: #### Britton Blount BMP, CBC #### [facility] [address] [place] [address] [place] Monocytes (Bld) [#/Vol] 0.9 10*3/uL High 0.0-0.8 [facility] Comment on above: Performed By: #### Britton Blount BMP, CBC #### [facility] [address] [place] [address] [place] Monocytes/100 WBC (Bld) 12.0 % Normal . [facility] Comment on above: Performed By: #### Britton Blount, BMP, CBC #### [facility] [address] [place] [address] [place] Neutrophils (Bld) [#/Vol] 4.3 10*3/uL Normal 1.8-7.7 [facility] Comment on above: Performed By: #### Britton Blount, BMP, CBC #### [facility] [address] [place] [address] [place] Neutrophils/100 WBC (Bld) 60.1 % Normal . [facility] Comment on above: Performed By: #### M Mine BMP, CBC #### [address] NRBC% 0.1 /100{WBC} Normal 0-0.5 [facility] Comment on above: Performed By: #### M Mine, BMP, CBC #### [address] Platelet mean volume (Bld) [Entitic vol] 7.6 fL Normal 6.3-10.7 [facility] Comment on above: Performed By: #### Britton Blount, BMP, CBC #### [address] Platelets (Bld) [#/Vol] 350 10*3/uL Normal 150-450 [facility] Comment on above: Performed By: #### Britton Blount BMP, CBC #### [address] RBC (Bld) [#/Vol] 3.72 10*6/uL Normal 3.60-5.00 [facility] Comment on above: Performed By: #### MONIQUE Dykes, CBC #### [address] WBC (Bld) [#/Vol] 7.1 10*3/uL Normal 3.8-11.6 [facility] Comment on above: Performed By: #### MONIQUE Dykes, CBC #### [address] Sodiumon 07-07-2022 Sodium [Moles/Vol] 124 mmol/L Off scale low 136-[address] [facility] Comment on above: Result Comment: Crit ical Result Called to and read back by: LAVONNE BECERRIL at: 07/07/2022 20:07:15 by:COSTA PERFORMED BY: [place] [address] PATHOLOGIST PHP LAMP DEVELOPER KD ELLISON M.D. Performed By: #### B MP, CBC #### [place] [address] [place] Sodium [Moles/Vol] 126 mmol/L Low 136-145 [facility] Comment on above: Result Comment: PERF ORMED BY: [place] [address] PATHOLOGIST PHP LAMP DEVELOPER KD ELLISON M.D. Performed By: #### O SMO #### [facility] [address] Sodium [Moles/Vol] 125 mmol/L Low 136-145 [facility] Comment on above: Result Comment: PERF ORMED BY: [place] [address] PATHOLOGIST PHP LAMP DEVELOPER KD ELLISON M.D. Performed By: #### O SMO #### [address] Basic Metabolic Panelon 06-24 Anion gap [Moles/Vol] 11.3 mmol/L Normal 6.0-15.0 [facility] Comment on above: Performed By: #### M G, BMP, CBC #### [place] [address] [place] Calcium [Mass/Vol] 9.1 mg/dL Normal 8.6-10.3 [facility] Comment on above: Performed By: #### M G, BMP, CBC #### [facility] [address] [place] [address] [place] Chloride [Moles/Vol] 89 mmol/L Low 98-107 [facility] Comment on above: Performed By: #### M G, BMP, CBC #### [facility] [address] [place] [address] [place] CO2 [Moles/Vol] 23.4 mmol/L Normal 21.0-31.0 [facility] Comment on above: Performed By: #### M G, BMP, CBC #### [facility] [address] [place] [address] [place] Creatinine [Mass/Vol] 0.50 mg/dL Low 0.60-1.[address] [facility] Comment on above: Performed By: #### MONIQUE Dykes, CBC #### [facility] [address] [place] [address] [place] Creatinine Clr Calc Pharmacy 47.97 [facility] Comment on above: Performed By: #### MONIQUE Dykes, CBC #### [facility] [address] [place] [address] [place] GFR/1.73 sq M.predicted MDRD (S/P/Bld) [Vol rate/Area] mL/min/{1.73_m2} [facility] Comment on above: Performed By: #### MONIQUE Dykes, CBC #### [facility] [address] Glucose [Mass/Vol] 131 mg/dL High 70-100 [facility] Comment on above: Result Comment: [facility] Glucose Reference Range is dependent on time and content of last meal. Glucose of more than 200 mg/dL in a nonstressed, ambulatory subject supports the diagnosis of Diabetes Mellitus. ADA recommended reference range Performed By: #### MONIQUE Dykes, CBC #### [facility] [address] Potassium [Moles/Vol] 3.7 mmol/L Normal 3.5-5.[address] [facility] Comment on above: Performed By: #### MONIQUE Dykes, CBC #### [facility] [address] Sodium [Moles/Vol] 120 mmol/L Off scale low 136-[address] [facility] Comment on above: Performed By: #### MONIQUE Dykes, CBC #### [facility] [address] [place] [address] [place] Urea nitrogen [Mass/Vol] 6 mg/dL Low 7-25 [facility] Comment on above: Performed By: #### MONIQUE Dykes, CBC #### [facility] [address] Complete Blood Count Auto Di ffon 07-06-2022 Basophils (Bld) [#/Vol] 0.0 10*3/uL Normal 0.0-0.2 [facility] Comment on above: Result Comment: PERF ORMED BY: [place] [address] PATHOLOGIST PHP LAMP DEVELOPER KD ELLISON M.D. Performed By: #### MONIQUE Dykes, CBC #### [facility] [address] [place] [address] Basophils/100 WBC (Bld) 0.4 % Normal . [facility] Comment on above: Performed By: #### MONIQUE Dykes, CBC #### [facility] [address] [place] [address] [place] Eosinophils (Bld) [#/Vol] 0.0 10*3/uL Normal 0.0-0.45 [facility] Comment on above: Performed By: #### MONIQUE Dykes, CBC #### [address] Eosinophils/100 WBC (Bld) 0.5 % Normal . [facility] Comment on above: Performed By: #### MONIQUE Dykes, CBC #### [facility] [address] [place] [address] Erythrocyte distribution width (RBC) [Ratio] 13.1 % Normal 11.9-15.3 [facility] Comment on above: Performed By: #### MONIQUE Dykes, CBC #### [facility] [address] [place] [address] Hematocrit (Bld) [Volume fraction] 38.1 % Normal 34.0-46.4 [facility] Comment on above: Performed By: #### MONIQUE Dykes, CBC #### [facility] [address] [place] [address] [place] Hemoglobin (Bld) [Mass/Vol] 12.9 g/dL Normal 11.8-15.4 [facility] Comment on above: Performed By: #### MONIQUE Dykes, CBC #### [facility] [address] [place] [address] [place] Lymphocytes (Bld) [#/Vol] 1.7 10*3/uL Normal 1.00-4.8 [facility] Comment on above: Performed By: #### MONIQUE Dykes, CBC #### [facility] [address] [place] [address] [place] Lymphocytes/100 WBC (Bld) 21.3 % Normal . [facility] Comment on above: Performed By: #### MONIQUE Dykes, CBC #### [facility] [address] [place] [address] [place] MCH (RBC) [Entitic mass] 30.1 pg Normal 24.7-34.3 [facility] Comment on above: Performed By: #### MONIQUE Dykes, CBC #### [facility] [address] MCV (RBC) [Entitic vol] 88.9 fL Normal 80-100 [facility] Comment on above: Performed By: #### MONIQUE Dykes, CBC #### [address] Mean Corpuscular HGB Conc 33.9 g/dL Normal 32.0-35.0 [facility] Comment on above: Performed By: #### MONIQUE Dykes, CBC #### [facility] [address] [place] [address] [place] Monocytes (Bld) [#/Vol] 0.8 10*3/uL Normal 0.0-0.8 [facility] Comment on above: Performed By: #### MONIQUE Dykes, CBC #### [place] [address] [place] Monocytes/100 WBC (Bld) 10.3 % Normal . [facility] Comment on above: Performed By: #### MONIQUE Dykes, CBC #### [facility] [address] [place] [address] [place] Neutrophils (Bld) [#/Vol] 5.3 10*3/uL Normal 1.8-7.7 [facility] Comment on above: Performed By: #### MONIQUE Dykes, CBC #### [facility] [address] [place] [address] [place] Neutrophils/100 WBC (Bld) 67.5 % Normal . [facility] Comment on above: Performed By: #### M G, BMP, CBC #### [facility] [address] NRBC% 0.1 /100{WBC} Normal 0-0.5 [facility] Comment on above: Performed By: #### M Mine, BMP, CBC #### [facility] [address] Platelet mean volume (Bld) [Entitic vol] 7.7 fL Normal 6.3-10.7 [facility] Comment on above: Performed By: #### Britton Blount, BMP, CBC #### [address] Platelets (Bld) [#/Vol] 426 10*3/uL Normal 150-450 [facility] Comment on above: Performed By: #### Britton Blount, BMP, CBC #### [address] RBC (Bld) [#/Vol] 4.28 10*6/uL Normal 3.60-5.00 [facility] Comment on above: Performed By: #### M Mine, BMP, CBC #### [address] WBC (Bld) [#/Vol] 7.9 10*3/uL Normal 3.8-11.6 [facility] Comment on above: Performed By: #### Britton Blount, BMP, CBC #### [address] ECH echo transthoracicon ECH echo transthoracic [facility] [address] Echocardiogram Signed Patient: Arianna Martinez MR#: [id number] 36 : 1950 Acct:[id number] Age/Sex: 72 / F ADM Date: 07/05/22 Loc: Room: [address] [place] [address] Type: ADM IN Attending Dr: Jayce Rodriguez MD Ordering Provider: Lance Lundberg DO, RES Date of Service: 07/06/22 ECH/ECH echo transthoracic: CHF with signs of compensation Copies to: Lance Lundberg DO, RES Evette Armstrong MD, [facility] BSA: 1.5 m2 BP: 147/88 mmHg HR: 79 Reason For Study: CHF with signs of compensation History: heart failure, depression Interpretation Summary The left ventricular size and thickness are normal. There is severe global hypokinesis of the left ventricle. Septal motion is consistent with conduction abnormality. The LV ejection fraction is 25 %. Trivial pericardial effusion. There is no prior echocardiogram noted for this patient. Procedure/Quality: A two-dimensional transthoracic echocardiogram with color flow and Doppler was performed. The study was technically good in quality. There is no prior echocardiogram noted for this patient. Left Ventricle: The left ventricular size and thickness are normal. The LV ejection fraction is 25 %. There is severe global hypokinesis of the left ventricle. Septal motion is consistent with conduction abnormality. Left Atrium: The left atrium appears normal in size. The atrial septum appears normal. Right Atrium: The right atrium appears normal in size. Right Ventricle: The right ventricular size, thickness and function are normal. Aortic Valve: The aortic valve is mildly sclerotic. Mitral Valve: The mitral valve is mildly sclerotic. Tricuspid Valve: The tricuspid valve is normal. There is trace tricuspid regurgitation. Pulmonic Valve: The pulmonic valve is not well seen, but is grossly normal. Arteries: The aortic root is normal size. Pericardium/Pleura: Trivial pericardial effusion. There is no pleural effusion. IVC/Hepatic Viens: The IVC is normal in size with an inspiratory collapse of greater then 50%, suggesting normal right atrial pressure. Miscellaneous: No thrombus, vegetation or mass is seen. Measurements with Normals IVSd: 1.2 cm (0.7-1.1 cm)LVIDd: 5.2 cm (3.7-5.4 cm) LVPWd: 0.92 cm (0.7-1.1 cm)LVIDs: 3.7 cm (2.3-3.6 cm) LA dimension: 3.5 cm(2.3-4.0 cm)Ao root diam: 2.8 cm(2.0-3.6 cm) Doppler with Normals MV E max earle: 63.4 cm/sec(0.8-1.3m/s) MV A max earle: 70.3 cm/sec(0.0-0.0m/s) MV E/A: 0.90 (<1.5) MMode/2D Measurements Calculations RV S Earle: FS: 28.6 % Ao root area: LVOT diam: 1.9 cm 9.6 cm/sec EDV(Teich): 6.4 cm2 LVOT area: 3.0 cm2 127.4 ml ESV(Teich): 57.6 ml EF(Teich): 54.8 % __ LVLd ap4: 6.2 cm SV(MOD-sp4): LAV(MOD-sp4): LA A2 area: 10.8 cm2 EDV(MOD-sp4): 12.7 ml 25.4 ml 49.6 ml LAV(MOD-sp2): LA A4 area: 11.7 cm2 LVLs ap4: 6.3 cm 28.1 ml LA length (vol): ESV(MOD-sp4): 4.2 cm 36.9 ml LA vol: 25.8 ml EF(MOD-sp4): 25.6 % LA vol index: 16.9 ml/m2 Doppler Measurements Calculations MV dec time: 0.15 sec E/E' lat: 8.2 E/E' med: 12.1 MV dec slope: 414.0 cm/sec2 Electronically signed by: EVETTE ARMSTRONG MD, [facility] on 07/06/2022 04:12 PM Transcribed By: SCV Performed At: 07/06/22 1328 Signed By: Ev[facility] Armstrong MD, [facility] 07/06/22 1612 Normal [facility] Magnesiumon 07-06-2022 Magnesium [Mass/Vol] 1.7 mg/dL Low 1.9-2.7 [facility] Comment on above: Result Comment: PERF ORMED BY: [facility] [address] [place] [address] PATHOLOGIST [employer] L[employer] DEVELOPER KD ELLISON M.D. Performed By: #### M MONIQUE Blount, CBC #### [place] [address] [place] Sodiumon 07-06-2022 Sodium [Moles/Vol] 123 mmol/L Normal 136-145 [facility] Comment on above: Result Comment: Crit ical Result Called to and read back by: JOSUÉ CHAVES at: 07/06/2022 18:54:21 by:KARELY PERFORMED BY: [place] [address] PATHOLOGIST PHP LAMP DEVELOPER KD ELLISON M.D. Performed By: #### M MONIQUE Blount, CBC #### [address] Sodium [Moles/Vol] 117 mmol/L Off scale low 136-[address] [facility] Comment on above: Result Comment: Crit ical Result Called to and read back by: JOSUÉ CHAVES at: 07/06/2022 10:55:14 by:[id number] PERFORMED BY: [place] [address] PATHOLOGIST PHP LAMP DEVELOPER KD ELLISON M.D. Performed By: #### B MP, CBC #### [address] Basic Metabolic Panelon 06-24 Anion gap [Moles/Vol] 14.5 mmol/L Normal 6.0-15.0 [facility] Comment on above: Performed By: #### O SMO #### [address] Calcium [Mass/Vol] 8.6 mg/dL Normal 8.6-10.3 [facility] Comment on above: Performed By: #### O SMO #### [address] Chloride [Moles/Vol] 93 mmol/L Low 98-107 [facility] Comment on above: Performed By: #### O SMO #### [address] CO2 [Moles/Vol] 18.4 mmol/L Low 21.0-31.0 [facility] Comment on above: Performed By: #### O SMO #### [address] Creatinine [Mass/Vol] 0.50 mg/dL Low 0.60-1.[address] [facility] Comment on above: Performed By: #### O SMO #### [place] [address] [place] Creatinine Clr Calc Pharmacy 47.97 [facility] Comment on above: Result Comment: PERF ORMED BY: [place] [address] PATHOLOGIST PHP LAMP DEVELOPER KD ELLISON M.D. Performed By: #### O SMO #### [address] GFR/1.73 sq M.predicted MDRD (S/P/Bld) [Vol rate/Area] mL/min/{1.73_m2} [facility] Comment on above: Performed By: #### O SMO #### [address] Glucose [Mass/Vol] 106 mg/dL High 70-100 [facility] Comment on above: Result Comment: [place] Glucose Reference Range is dependent on time and content of last meal. Glucose of more than 200 mg/dL in a nonstressed, ambulatory subject supports the diagnosis of Diabetes Mellitus. ADA recommended reference range Performed By: #### O SMO #### [address] Potassium [Moles/Vol] 3.9 mmol/L Normal 3.5-5.[address] [facility] Comment on above: Performed By: #### O SMO #### [address] Sodium [Moles/Vol] 122 mmol/L Off scale low 136-[address] [facility] Comment on above: Result Comment: Crit ical Result Called to and read back by: RUBIN AGGARWAL at: 07/05/2022 00:31:11 by:[email or web address] Performed By: #### O SMO #### [address] Urea nitrogen [Mass/Vol] 6 mg/dL Low 7-25 [facility] Comment on above: Performed By: #### O SMO #### [address] Osmolalityon 07-05-2022 Osmolality 258 mosm Low 278-305 [facility] Comment on above: Result Comment: PERF ORMED BY: [place] [address] PATHOLOGIST PHP LAMP DEVELOPER KD ELLISON M.D. Performed By: #### O SMO #### [address] Osmolality, Urineon 07-06-19 23 Osmolality, Urine 322 mosm Normal 250-900 [facility] Comment on above: Result Comment: PERF ORMED BY: [place] [address] PATHOLOGIST PHP LAMP DEVELOPER KD ELLISON M.D. Performed By: #### O SMO #### [address] Sodium, Urine (Random)on Sodium (U) [Moles/Vol] 87 mmol/L Normal [facility] Comment on above: Result Comment: No r eference range established PERFORMED BY: [place] [address] PATHOLOGIST PHP LAMP DEVELOPER KD ELLISON M.D. Performed By: #### O SMO #### [address] BASIC METABOLIC PANELon 05- Calcium [Mass/Vol] 8.3 mg/dL Low 8.6-10.3 [facility] Comment on above: Order Comment: No: D o not add to previous draw Performed By: #### 8 5123 #### [facility] [address] [place] [address], [place] Chloride [Moles/Vol] 97 mmol/L Low 98-107 [facility] Comment on above: Order Comment: No: D o not add to previous draw Performed By: #### 8 5123 #### [facility] [address] [place] [address], [place] CO2 [Moles/Vol] 20 mmol/L Low 21-31 [facility] Comment on above: Order Comment: No: D o not add to previous draw Performed By: #### 8 5123 #### [facility] [address] [place] [address], [place] Creatinine [Mass/Vol] 0.63 mg/dL Normal 0.60-1.20 [facility] Comment on above: Order Comment: No: D o not add to previous draw Performed By: #### 8 5123 #### [facility] [address] [place] [address], [place] GFR/1.73 sq M predicted among blacks MDRD (S/P/Bld) [Vol rate/Area] mL/min/{1.73_m2} Normal >60 [facility] Comment on above: Order Comment: No: D o not add to previous draw Performed By: #### 8 5123 #### [facility] [address] [place] [address], [place] GFR/1.73 sq M predicted among non-blacks MDRD (S/P/Bld) [Vol rate/Area] mL/min/{1.73_m2} Normal >60 [facility] Comment on above: Order Comment: No: D o not add to previous draw Performed By: #### 8 5123 #### [facility] [address] [place] [address], [place] Glucose [Mass/Vol] 98 mg/dL Normal 70-100 [facility] Comment on above: Order Comment: No: D o not add to previous draw Performed By: #### 8 5123 #### [facility] [address] [place] [address], [facility] Potassium [Moles/Vol] 3.8 mmol/L Normal 3.5-5.1 [facility] Comment on above: Order Comment: No: D o not add to previous draw Performed By: #### 8 5123 #### [facility] [address] [place] [address], [place] Sodium [Moles/Vol] 124 mmol/L Critically low 136-145 [facility] Comment on above: Order Comment: No: D o not add to previous draw Result Comment: M-CR ITICAL RESULT(S) REVIEWED, CALLED TO AND READ BACK BY IZABELLA VILLEGAS RN AT 0629. Performed By: #### 8 5123 #### [facility] [address] [place] [address], [facility] Urea nitrogen [Mass/Vol] 10 mg/dL Normal 7-25 [facility] Comment on above: Order Comment: No: D o not add to previous draw Performed By: #### 8 5123 #### [facility] [address] [place] [address], [facility] POC GLUCOSE LABon 08-07-2018 Glucose [Mass/Vol] 125 mg/dL High 70-100 [facility] Comment on above: Performed By: #### 1 0054 #### [facility] [address] [facility] [place] [address], [facility] Glucose [Mass/Vol] 95 mg/dL Normal 70-100 [facility] Comment on above: Performed By: #### 1 0054 #### [facility] [address] [facility] [place] [address], [facility] *BLOOD CULTUREon 08-06-2018 Bacteria identified Cx Nom (Bld) Clinical Report: (D) Specimen: BLOOD CULTURE Collected: 08/05/2018 22:59 Status: Final Last Updated: 08/11/2018 06:21 (1) Right wrist CULT RES (Final) No Growth Day 5 Normal [facility] Comment on above: Order Comment: No: D o not add to previous draw Performed By: #### 8 5123 #### [facility] [address] [place] [address], [facility] Bacteria identified Cx Nom (Bld) Clinical Report: (D) Specimen: BLOOD CULTURE Collected: 08/05/2018 22:58 Status: Final Last Updated: 08/11/2018 06:21 (1) Left ac CULT RES (Final) No Growth Day 5 Normal [facility] Comment on above: Order Comment: No: D o not add to previous draw Performed By: #### 8 5123 #### [facility] [address] [place] [address], [facility] BASIC METABOLIC PANELon 07-24 Calcium [Mass/Vol] 8.6 mg/dL Normal 8.6-10.3 [facility] Comment on above: Order Comment: No: D o not add to previous draw Performed By: #### 0 0071, 97006, 25703 #### [facility] [address] [place] [address], [place] Chloride [Moles/Vol] 96 mmol/L Low 98-107 [facility] Comment on above: Order Comment: No: D o not add to previous draw Performed By: #### 0 0071, 27832, 61501 #### [facility] [address] [place] [address], [place] CO2 [Moles/Vol] 21 mmol/L Normal 21-31 [facility] Comment on above: Order Comment: No: D o not add to previous draw Performed By: #### 0 0071, 37275, 39680 #### [facility] [address] [place] [address], [place] Creatinine [Mass/Vol] 0.65 mg/dL Normal 0.60-1.20 [facility] Comment on above: Order Comment: No: D o not add to previous draw Performed By: #### 0 0071, 10306, 81095 #### [facility] [address] [place] [address], [place] GFR/1.73 sq M predicted among blacks MDRD (S/P/Bld) [Vol rate/Area] mL/min/{1.73_m2} Normal >60 [facility] Comment on above: Order Comment: No: D o not add to previous draw Performed By: #### 0 0071, 04456, 46084 #### [facility] [address] [place] [address], [place] GFR/1.73 sq M predicted among non-blacks MDRD (S/P/Bld) [Vol rate/Area] mL/min/{1.73_m2} Normal >60 [facility] Comment on above: Order Comment: No: D o not add to previous draw Performed By: #### 0 0071, 23511, 68111 #### [facility] [address] [place] [address], [place] Glucose [Mass/Vol] 94 mg/dL Normal 70-100 [facility] Comment on above: Order Comment: No: D o not add to previous draw Performed By: #### 0 0071, 34797, 10092 #### [facility] [address] [place] [address], [place] Potassium [Moles/Vol] 3.4 mmol/L Low 3.5-5.1 [facility] Comment on above: Order Comment: No: D o not add to previous draw Performed By: #### 0 0071, 48850, 47368 #### [facility] [address] [place] [address], [place] Sodium [Moles/Vol] 126 mmol/L Low 136-145 [facility] Comment on above: Order Comment: No: D o not add to previous draw Performed By: #### 0 0071, 39134, 54334 #### [facility] [address] [place] [address], [place] Urea nitrogen [Mass/Vol] 12 mg/dL Normal 7-25 [facility] Comment on above: Order Comment: No: D o not add to previous draw Performed By: #### 0 0071, 82963, 28978 #### [facility] [address] [place] [address], [place] Calcium [Mass/Vol] 9.0 mg/dL Normal 8.6-10.3 [facility] Comment on above: Order Comment: No: D o not add to previous draw Performed By: #### 3 5199, 22083 #### [facility] [address] [place] [address], [place] Chloride [Moles/Vol] 95 mmol/L Low 98-107 [facility] Comment on above: Order Comment: No: D o not add to previous draw Performed By: #### 3 5199, 95152 #### [facility] [address] [place] [address], [place] CO2 [Moles/Vol] 17 mmol/L Low 21-31 [facility] Comment on above: Order Comment: No: D o not add to previous draw Performed By: #### 3 5199, 44363 #### [facility] [address] [place] [address], [place] Creatinine [Mass/Vol] 0.74 mg/dL Normal 0.60-1.20 [facility] Comment on above: Order Comment: No: D o not add to previous draw Performed By: #### 3 5199, 58371 #### [facility] [address] [place] [address], [place] GFR/1.73 sq M predicted among blacks MDRD (S/P/Bld) [Vol rate/Area] mL/min/{1.73_m2} Normal >60 [facility] Comment on above: Order Comment: No: D o not add to previous draw Performed By: #### 3 5199, 48545 #### [facility] [address] [place] [address], [facility] GFR/1.73 sq M predicted among non-blacks MDRD (S/P/Bld) [Vol rate/Area] mL/min/{1.73_m2} Normal >60 [facility] Comment on above: Order Comment: No: D o not add to previous draw Performed By: #### 3 5199, 79186 #### [facility] [address] [place] [address], [facility] Glucose [Mass/Vol] 135 mg/dL High 70-100 [facility] Comment on above: Order Comment: No: D o not add to previous draw Performed By: #### 3 5199, 25304 #### [facility] [address] [place] [address], [facility] Potassium [Moles/Vol] 3.6 mmol/L Normal 3.5-5.1 [facility] Comment on above: Order Comment: No: D o not add to previous draw Performed By: #### 3 5199, 24343 #### [facility] [address] [place] [address], [facility] Sodium [Moles/Vol] 124 mmol/L Critically low 136-145 [facility] Comment on above: Order Comment: No: D o not add to previous draw Result Comment: M-CR ITICAL RESULT(S) REVIEWED, CALLED TO AND READ BACK BY JUDITH KEMP RN AT [facility] Performed By: #### 3 5199, 32440 #### [facility] [address] [place] [address], [place] Urea nitrogen [Mass/Vol] 8 mg/dL Normal 7-25 [facility] Comment on above: Order Comment: No: D o not add to previous draw Performed By: #### 3 5199, 63729 #### [facility] [address] [place] [address], [place] BNP (B-TYPE NATRIURETIC PEPT KESHIA)on 08-06-2018 Natriuretic peptide B (Bld) [Mass/Vol] 536 pg/mL High 0-100 [facility] Comment on above: Order Comment: No: D o not add to previous draw Result Comment: Give n the appropriate clinical setting a BNP result of >100 pg/mL indicates congestive heart failure. Performed By: #### 8 5123 #### [facility] [address] CBC COMPLETE BLOOD COUNTon - Erythrocyte distribution width (RBC) [Ratio] 12.9 % Normal 11.5-15.0 [facility] Comment on above: Order Comment: No: D o not add to previous draw Performed By: #### 5 0608 #### [facility] [address] Hematocrit (Bld) [Volume fraction] 37.5 % Normal 36.0-45.0 [facility] Comment on above: Order Comment: No: D o not add to previous draw Performed By: #### 5 0608 #### [facility] [address] Hemoglobin (Bld) [Mass/Vol] 12.1 g/dL Normal 12.0-15.0 [facility] Comment on above: Order Comment: No: D o not add to previous draw Performed By: #### 5 0608 #### [facility] [address] [place] [address], [facility] MCH (RBC) [Entitic mass] 30.0 pg Normal 27.0-33.0 [facility] Comment on above: Order Comment: No: D o not add to previous draw Performed By: #### 5 0608 #### [facility] [address] [place] [address], [facility] MCHC (RBC) [Mass/Vol] 32.3 g/dL Normal 32.0-35.0 [facility] Comment on above: Order Comment: No: D o not add to previous draw Performed By: #### 5 0608 #### [facility] [address] [place] [address], [facility] MCV (RBC) [Entitic vol] 92.8 fL Normal 82.0-98.0 [facility] Comment on above: Order Comment: No: D o not add to previous draw Performed By: #### 5 0608 #### [facility] [address] [facility] [place] [address], [facility] Nucleated RBC/100 WBC (Bld) [Ratio] 0 % Normal 0-0 [facility] Comment on above: Order Comment: No: D o not add to previous draw Performed By: #### 5 0608 #### [facility] [address] [place] [address], [facility] PLAT CNT 288 10*3/uL Normal 150-400 [facility] Comment on above: Order Comment: No: D o not add to previous draw Performed By: #### 5 0608 #### [facility] [address] [place] [address], [facility] RBC (Bld) [#/Vol] 4.04 10*6/uL Normal 3.80-5.00 [facility] Comment on above: Order Comment: No: D o not add to previous draw Performed By: #### 5 0608 #### [facility] [address] [place] [address], [facility] WBC (Bld) [#/Vol] 7.80 10*3/uL Normal 4.00-10.60 [facility] Comment on above: Order Comment: No: D o not add to previous draw Performed By: #### 5 0608 #### [facility] [address] [place] [address], [facility] CBC W/DIFFon 08-06-2018 ABS BASOPHILS 0.0 10*3/uL Normal 0.0-0.2 [facility] Comment on above: Order Comment: No: D o not add to previous draw Performed By: #### 5 0103 #### [facility] [address] [place] [address], [facility] ABS IMM GRANS 0.0 10*3/uL Normal 0.0-0.2 [facility] Comment on above: Order Comment: No: D o not add to previous draw Performed By: #### 5 0103 #### [facility] [address] [place] [address], [facility] ABS NEUTROPHILS 5.7 10*3/uL Normal 1.6-7.6 [facility] Comment on above: Order Comment: No: D o not add to previous draw Performed By: #### 5 0103 #### [facility] [address] [facility] [place] [address], [facility] Basophils/100 WBC (Bld) 0.4 % Normal 0.0-1.0 [facility] Comment on above: Order Comment: No: D o not add to previous draw Performed By: #### 5 0103 #### [facility] [address] [place] [id number], [facility] Eosinophils (Bld) [#/Vol] 0.0 10*3/uL Normal 0.0-0.5 [facility] Comment on above: Order Comment: No: D o not add to previous draw Performed By: #### 5 0103 #### [facility] [address] [facility] [place] [place] [id number], [facility] Eosinophils/100 WBC (Bld) 0.4 % Normal 0.0-6.0 [facility] Comment on above: Order Comment: No: D o not add to previous draw Performed By: #### 5 0103 #### [facility] [address] [facility] [place] [place] [id number], [facility] Erythrocyte distribution width (RBC) [Ratio] 12.7 % Normal 11.5-15.0 [facility] Comment on above: Order Comment: No: D o not add to previous draw Performed By: #### 5 0103 #### [facility] [address] Hematocrit (Bld) [Volume fraction] 38.4 % Normal 36.0-45.0 [facility] Comment on above: Order Comment: No: D o not add to previous draw Performed By: #### 5 0103 #### [facility] [address] [place] [address], [facility] Hemoglobin (Bld) [Mass/Vol] 12.6 g/dL Normal 12.0-15.0 [facility] Comment on above: Order Comment: No: D o not add to previous draw Performed By: #### 5 3 #### [facility] [address] [place] [address], [facility] IMMATURE GRANS 0.3 % Normal 0.0-1.0 [facility] Comment on above: Order Comment: No: D o not add to previous draw Performed By: #### 5 3 #### [facility] [address] [facility] [place] [address], [facility] Lymphocytes (Bld) [#/Vol] 2.4 10*3/uL Normal 1.2-4.0 [facility] Comment on above: Order Comment: No: D o not add to previous draw Performed By: #### 5 3 #### [facility] [address] [facility] [place] [address], [facility] Lymphocytes/100 WBC (Bld) 26.5 % Normal 20.0-45.0 [facility] Comment on above: Order Comment: No: D o not add to previous draw Performed By: #### 5 0103 #### [facility] [address] [facility] [place] [address], [facility] MCH (RBC) [Entitic mass] 30.6 pg Normal 27.0-33.0 [facility] Comment on above: Order Comment: No: D o not add to previous draw Performed By: #### 5 3 #### [facility] [address] [place] [address], [facility] MCHC (RBC) [Mass/Vol] 32.8 g/dL Normal 32.0-35.0 [facility] Comment on above: Order Comment: No: D o not add to previous draw Performed By: #### 5 0103 #### [facility] [address] [place] [id number], [facility] MCV (RBC) [Entitic vol] 93.2 fL Normal 82.0-98.0 [facility] Comment on above: Order Comment: No: D o not add to previous draw Performed By: #### 5 0103 #### [facility] [address] [place] [address], [facility] Monocytes (Bld) [#/Vol] 0.8 10*3/uL Normal 0.1-1.0 [facility] Comment on above: Order Comment: No: D o not add to previous draw Performed By: #### 5 0103 #### [facility] [address] [place] [address], [facility] MONOS 9.2 % Normal 5.0-12.0 [facility] Comment on above: Order Comment: No: D o not add to previous draw Performed By: #### 5 0103 #### [facility] [address] [place] [address], [facility] Neutrophils/100 WBC (Bld) 63.2 % Normal 40.0-72.0 [facility] Comment on above: Order Comment: No: D o not add to previous draw Performed By: #### 5 [id number] #### [facility] [address] [place] [address], [facility] Nucleated RBC/100 WBC (Bld) [Ratio] 0 % Normal 0-0 [facility] Comment on above: Order Comment: No: D o not add to previous draw Performed By: #### 5 0103 #### [facility] [address] [place] [id number], [facility] PLAT CNT 302 10*3/uL Normal 150-400 [facility] Comment on above: Order Comment: No: D o not add to previous draw Performed By: #### 5 0103 #### [facility] [address] [facility] [place] [address], [facility] RBC (Bld) [#/Vol] 4.12 10*6/uL Normal 3.80-5.00 [facility] Comment on above: Order Comment: No: D o not add to previous draw Performed By: #### 5 0103 #### [facility] [address] [place] [address], [facility] WBC (Bld) [#/Vol] 8.96 10*3/uL Normal 4.00-10.60 [facility] Comment on above: Order Comment: No: D o not add to previous draw Performed By: #### 5 0103 #### [facility] [address] [place] [address], [facility] CHEST AND LATERALon 08-07-19 19 CHEST AND LATERAL [facility] Department of Radiology [address] [place] [id number] Patient Name: ARIANNA MARTINEZ : 1950 Sex: F Age: Race: White Pt. Location: [address] [place] [address] Patient Status: I Ordered Date: 08/05/2018 9:50:00 PM Completed Date: 08/06/2018 08:50 AM Requesting Provider: CONNIE SHAH Attending Provider: NIKOS MACK Report Copy To: Signs & Symptoms: Chest Pain History: Patient history not available Comments: R/O CHF Exam: CHEST AND LATERAL CHEST AND LATERAL 08/06/2018 8:50 AM EDT SIGNS AND SYMPTOMS: Chest Pain TECHNOLOGIST COMMENTS: cough QUESTION FOR THE RADIOLOGIST: R/O CHF PROTOCOL: AP(PA) and Lateral views were obtained. COMPARISON: None FINDINGS: The heart and mediastinum are unremarkable. Lungs are free of infiltrates or effusions. IMPRESSION: Unremarkable examination. No evidence of CHF. Mild curvature the spine to the right which may be positional. Electronically signed by:Charles Tobias. Transcribed by: [id number], User Resident: Electronically Signed by: CHARLES TOBIAS @ 08/06/2018 02:03 PM Normal [facility] Comment on above: Order Comment: No: D o not add to previous draw HEMOGLOBIN A1Con 08-06-2018 HbA1c (Bld) [Mass fraction] 5.1 % Normal 4.0-6.0 [facility] Comment on above: Order Comment: No: D o not add to previous draw Performed By: #### 8 [id number] #### [facility] [address] [facility]. [address] HbA1c (Bld) [Mass fraction] 100 mg/dL Normal 70-126 [facility] Comment on above: Order Comment: No: D o not add to previous draw Performed By: #### 8 [id number] #### [facility] [address] [facility]. [address] History and Physicalon 08-06 History and Physical MR#: [id number] [facility] Pt. Name: Arianna Martinez Admitted: 08/05/2018 Date of : 1950 Attending Physician: Connie Shah MD Room #: [id number] Discharge Date: HISTORY AND PHYSICAL CHIEF COMPLAINT: Weakness. HISTORY OF PRESENT ILLNESS: This is a 68-year-old female with past medical history of hypertension, diabetes, and anxiety, was in her usual state of health up until today when she had an episode of chest tightness and suffocation sensation when she was in [facility], that was associated with shortness of breath, palpitation and lightheadedness, also she had nausea without vomiting. The patient reports that she had to sit down on the ground and she called 911, who took the patient to the Emergency Department in [facility]. The patient reports that recently she has been into a lot of stress as her is being admitted in the ICU in [facility]. She also does have generalized weakness for the last 2 weeks and she also does have productive cough recently with no chills/fevers. She reports that she is on medications for hypertension and diabetes and she follows up with her primary care doctor. The patient reports no similar episodes in the past. Initial evaluation in the Emergency Department in [facility] revealed an elevated BNP and troponin trended from 0.02-0.07. The patient was transferred to [facility] for higher level of care. She was also found to have sodium of 123. No previous readings to compare with. The patient reports no orthopnea, no paroxysmal nocturnal dyspnea. No change in bowel or urinary habits. She did not notice any increase in her weight recently. No sick contact. The patient was given aspirin x1, 20 mg of Lasix IV, ceftriaxone 1 g IV, and Ativan 1 mg IV. PAST MEDICAL HISTORY: Include hypertension, diabetes, and anxiety. PAST SURGICAL HISTORY: None. SOCIAL HISTORY: The patient is a never smoker. She drinks alcohol on a daily basis. She drinks about 1 glass of wine with dinner. No use of recreational substances. ALLERGIES: No known drug allergies. MEDICATIONS: At home include paroxetine 40 mg per oral daily, trazodone 50 mg per oral daily, metformin 250 mg per oral twice a day, losartan, loratadine, atenolol 25 mg per oral daily. FAMILY HISTORY: Reviewed and not related to current visit. REVIEW OF SYSTEMS: Of all points is done, pertinent positives and negatives as per HPI. PHYSICAL EXAMINATION: GENERAL: She is a middle-aged white female, in mild distress, lying in bed. HEENT: Pupils equal, round, reactive to light. Extraocular muscles intact. Mucous membrane is moist. NECK: Supple. No JVD. No LAD. LUNGS: Clear to auscultation bilaterally with no wheezes, rhonchi, or crackles. Symmetric chest excursion. HEART: Normal S1, S2. Regular rate and rhythm. No murmurs, rubs, or gallop. ABDOMEN: Soft, nontender, nondistended. Positive bowel sounds. NEUROLOGICAL: No facial asymmetry. Muscle strength is 5/5 in both upper and lower limbs. Speech is clear and coherent. EXTREMITIES: No cyanosis, no edema. Positive distal pulses bilaterally. SKIN: Warm/dry. PSYCHIATRIC: Alert and oriented x3. LABORATORY DATA: From [facility] is showing BNP of 2500, sodium of 123, potassium 3.8, chloride 91, carbon dioxide of 20, BUN 8, creatinine 0.6, blood sugar of 107. White blood cell count of 10, hemoglobin 13, platelets 327. UA is showing moderate leukocytes with 10-20 white blood cell count. First troponin is 0.02. Second troponin is 0.07. TSH is 1.9. An EKG is done, which is showing left bundle branch block with a heart rate of 114. No previous EKGs to compare with. QTc is 458. ASSESSMENT AND PLAN: 1. An episode of chest tightness that might represent angina. We will rule the patient out for acute coronary syndrome. We will trend her troponin. We will monitor her on step-down unit on telemetry. We will get a followup EKG. We will add nitroglycerin p.r.n. We will get an echocardiogram of the patient. The patient was given aspirin. We will continue with aspirin. We will continue with her beta jeff. 2. Elevated BNP, the patient was given Lasix in [facility]. Now, she looks euvolemic. We will get an echocardiogram. 3. Hyponatremia, unknown if this is an acute or chronic issue. We will send for urine studies including urine sodium and urine creatinine. We will try to get more records from her primary care doctor in [facility]. Currently, she is asymptomatic from that. 4. Diabetes mellitus. We will hold her metformin. We will start her on sliding scale. We will check her A1c. 5. Anxiety. We will continue with Paxil. Electronically Signed by: Connie Shah MD 08/05/2018 11:46 P Connie Shah MD Date Dict: 08/05/2018/10:02 P/Connie Shah MD Date Trans: 08/05/2018 10:41 P/mmo [id number] Normal [facility] LACTATE BLOODon 08-06-2018 Lactate [Moles/Vol] 0.6 mmol/L Normal 0.5-2.2 [facility] Comment on above: Order Comment: No: D o not add to previous draw Performed By: #### 1 0054 #### [facility] [address] [place] [address], [facility] LIPID PROFILEon 08-06-2018 Cholesterol [Mass/Vol] 125 mg/dL Normal 120-200 Th e [facility] Comment on above: Order Comment: No: D o not add to previous draw Result Comment: CHOL ESTEROL REFERENCE RANGE: 20 YEARS AND OLDER CARDIOVASCULAR RISK Less than 200 mg/dl Low Risk 200 to 239 mg/dl Borderline Risk 240 mg/dl and greater High Risk Performed By: #### 0 0071, [id number], [id number] #### [facility] [address] [place] [address], [facility] Cholesterol in HDL [Mass/Vol] 51 mg/dL Normal 23-92 [facility] Comment on above: Order Comment: No: D o not add to previous draw Result Comment: Slig ht variation in normal range could be due to gender and/or age. HDL CHOLESTEROL REFERENCE RANGE: 20 years and older Cardiovascular Risk > or =60 mg/dL Desirable 40 TO 59 mg/dL Low Risk <40 mg/dL High Risk Performed By: #### 0 0071, [id number], [id number] #### [facility] [address] [place] [address], [facility] Cholesterol in LDL [Mass/Vol] 56 mg/dL Normal 0-130 [facility] Comment on above: Order Comment: No: D o not add to previous draw Result Comment: LDL IS A CALCULATION LDL IS ONLY VALID IF THE TRIG IS LESS THAN 400. Performed By: #### 0 0071, [id number], [id number] #### [facility] [address] Cholesterol.total/Chol esterol in HDL [Mass ratio] 2.5 {ratio} Normal .0-4.5 [facility] Comment on above: Order Comment: No: D o not add to previous draw Performed By: #### 0 0071, [id number], [id number] #### [facility] [address] [place] [address], [facility] NON-HDL CHOLESTEROL 74 mg/dL Normal [facility] Comment on above: Order Comment: No: D o not add to previous draw Performed By: #### 0 0071, [id number], [id number] #### [facility] [address] [place] [address], [facility] Triglyceride [Mass/Vol] 91 mg/dL Normal 40-149 [facility] Comment on above: Order Comment: No: D o not add to previous draw Result Comment: TRIG LYCERIDE REFERENCE RANGE: 20 YEARS AND OLDER CARDIOVASCULAR RISK LESS THAN 150 mg/dl LOW RISK 150 TO 199 mg/dl BORDERLINE RISK 200 mg/dl AND GREATER HIGH RISK Performed By: #### 0 0071, [id number], [id number] #### [facility] [address] [place] [address], [facility] VLDL CHOL 18 mg/dL Normal 0-40 [facility] Comment on above: Order Comment: No: D o not add to previous draw Performed By: #### 0 0071, [id number], [id number] #### [facility] [address] [place] [address], [facility] POC GLUCOSE LABon 08-06-2018 Glucose [Mass/Vol] 92 mg/dL Normal 70-100 [facility] Comment on above: Performed By: #### 8 [id number] #### [facility] [address] [place] [address], [facility] Glucose [Mass/Vol] 158 mg/dL High 70-100 [facility] Comment on above: Performed By: #### 8 [id number] #### [facility] [address] [place] [address], [facility] Glucose [Mass/Vol] 91 mg/dL Normal 70-100 [facility] Comment on above: Performed By: #### 8 [id number] #### [facility] [address] [place] [address], [facility] PROCALCITONINon 08-06-2018 PROCALCITONIN 0.01 ng/mL Normal 0.00-0.10 [facility] Comment on above: Order Comment: No: D o not add to previous draw Result Comment: Susp ected Lower Respiratory Tract Infection: 0.1-0.25ng/mL- Low likelihood for bacterial infection;Antibiotics discouraged.* >0.25ng/mL- Increased likelihood bacterial infection;Antibiotics encouraged. Suspected Sepsis: Strongly consider initiating antibiotics in all unstable patients. 0.1-0.5ng/mL- Low likelihood for sepsis; Antibiotics discouraged.* >0.5ng/mL- Increased likelihood sepsis; Antibiotics encouraged. >2.0ng/mL- High risk of sepsis/septic shock; Antibiotics strongly encouraged. *Recommend retesting PCT within 6-12hours if clinically indicated and initial PCT<0.5ng/mL Performed By: #### 3 1488 #### [facility] [address] TROPONIN-Ion 08-06-2018 Troponin I.cardiac [Mass/Vol] 0.03 ng/mL Normal 0.00-0.04 [facility] Comment on above: Order Comment: No: D o not add to previous draw Result Comment: REFE RENCE RANGES: 0.00 - 0.04 ng/ml NORMAL 0.05 - 0.50 ng/ml INDETERMINATE > 0.50 ng/ml CONSISTENT WITH AN M.I. Performed By: #### 8 [id number] #### [facility] [address] [place] [address], [facility] Troponin I.cardiac [Mass/Vol] 0.04 ng/mL Normal 0.00-0.04 [facility] Comment on above: Result Comment: REFE RENCE RANGES: 0.00 - 0.04 ng/ml NORMAL 0.05 - 0.50 ng/ml INDETERMINATE > 0.50 ng/ml CONSISTENT WITH AN M.I. Performed By: #### 8 [id number] #### [facility] [address] [facility] [place] [address], [facility] Troponin I.cardiac [Mass/Vol] 0.04 ng/mL Normal 0.00-0.04 [facility] Comment on above: Order Comment: No: D o not add to previous draw Result Comment: REFE RENCE RANGES: 0.00 - 0.04 ng/ml NORMAL 0.05 - 0.50 ng/ml INDETERMINATE > 0.50 ng/ml CONSISTENT WITH AN M.I. Performed By: #### 3 5200, [id number] #### [facility] [address] [facility]. [place], [place] [id number] [place] [address] Vital Signs Date Time Vital Sign Value Performing Clinician Facility 05-30-2023 13:050 Body height 152.4 cm Evi SINHA Work Phone: [facility] 05-30-2023 13:130500 Body mass index (BMI) [Ratio] 24.92 kg/m2 Evi Maradiaga APRN-RAND CEMENTER Work Phone: [facility] 05-30-2023 13:13050 Body temperature 98.1 [degF] Evi Maradiaga APRN-RAND CEMENTER Work Phone: [facility] 05-30-2023 13:13-0500 Body weight 57.88 kg Evi Maradiaga BELL VALET-RAND CEMENTER Work Phone: [facility] [employer] [facility] 05-30-2023 13:13-0500 Diastolic blood pressure 70 mm[Hg] Evi Maradiaga BELL VALET-RAND CEMENTER Work Phone: [facility] 05-30-2023 13:13-0500 Heart rate 76 /min Evi Maradiaga BELL VALET-RAND CEMENTER Work Phone: [facility] 05-30-2023 13:13-0500 SaO2% (BldA) [Mass fraction] 97 % Evi Maradiaga BELL VALET-RAND CEMENTER Work Phone: [facility] 05-30-2023 13:13-0500 Systolic blood pressure 120 mm[Hg] Evi Maradiaga BELL VALET-RAND CEMENTER Work Phone: [facility] 04-05-2023 10:24-0500 Diastolic blood pressure 88 mm[Hg] Ale Mosquera MD Work Phone: [facility] 04-05-2023 10:24-0500 Heart rate 66 /min Ale Mosquera MD Work Phone: [facility] 04-05-2023 10:24-0500 Systolic blood pressure 128 mm[Hg] Ale Mosquera MD Work Phone: [facility] 04-05-2023 10:21-0500 Body height 154.9 cm Ale Mosquera MD Work Phone: [facility] 04-05-2023 10:21-0500 Body mass index (BMI) [Ratio] 24.19 kg/m2 Ale Mosquera MD Work Phone: [facility] 04-05-2023 10:21-0500 Body weight 58.06 kg Ale Mosquera MD Work Phone: [facility] 03-17-2023 15:58-0500 Diastolic blood pressure 83 mm[Hg] [employer] Evi Maradiaga Work Phone: [facility] 03-17-2023 15:58-0500 Heart rate 80 /min [employer] Evi Maradiaga Work Phone: [facility] 03-17-2023 15:58-0500 Respiratory rate 16 /min [employer] Evi Maradiaga Work Phone: [facility] 03-17-2023 15:58-0500 SaO2% (BldA) [Mass fraction] 99 % [employer] Evi Maradiaga Work Phone: [facility] 03-17-2023 15:58-0500 Systolic blood pressure 152 mm[Hg] [employer] Evi Maradiaga Work Phone: [facility] 03-17-2023 11:05-0500 Body temperature 97.9 [degF] [employer] Evi Maradiaga Work Phone: [facility] 03-17-2023 06:00-0500 Body weight 58 kg [employer] Evi Maradiaga Work Phone: [facility] 03-16-2023 20:43-0500 Body height 154.94 cm [employer] Evi Maradiaga Work Phone: [facility] 03-16-2023 19:00-0500 Diastolic blood pressure 61 mm[Hg] [employer] Evi Maradiaga Work Phone: [facility] 03-16-2023 19:00-0500 Heart rate 68 /min [employer] Evi Maradiaga Work Phone: [facility] 03-16-2023 19:00-0500 Respiratory rate 16 /min [employer] Evi Maradiaga Work Phone: [facility] 03-16-2023 19:00-0500 SaO2% (BldA) [Mass fraction] 98 % [employer] Evi Maradiaga Work Phone: [facility] 03-16-2023 19:00-0500 Systolic blood pressure 125 mm[Hg] [employer] Evi Maradiaga Work Phone: [facility] 03-16-2023 13:34-0500 Body height 157.48 cm [employer] Evi Maradiaga Work Phone: [facility] 03-16-2023 13:34-0500 Body temperature 98 [degF] [employer] Evi Maradiaga Work Phone: [facility] 03-16-2023 13:34-0500 Body weight 56.69 kg [employer] Evi Maradiaga Work Phone: [facility] 03-05-2023 12:00-0500 Body height 154.9 cm Ale Mosquera MD Work Phone: [facility] 03-05-2023 12:00-0500 Body mass index (BMI) [Ratio] 24.19 kg/m2 Ale Mosquera MD Work Phone: [facility] 03-05-2023 12:00-0500 Body weight 58.06 kg Ale Mosquera MD Work Phone: [facility] 03-05-2023 12:00-0500 Diastolic blood pressure 80 mm[Hg] Ale Mosquera MD Work Phone: [facility] 03-05-2023 12:00-0500 Heart rate 64 /min Ale Mosquera MD Work Phone: [facility] 03-05-2023 12:00-0500 Systolic blood pressure 122 mm[Hg] Ale Mosquera MD Work Phone: [facility] 01-23-2023 09:40-0400 Body height 154.31 cm Maile Hall Other [employer] Other 01-23-2023 09:40-0400 Body mass index (BMI) [Ratio] 23.89 kg/m2 Maile Hall Other [employer] Other 01-23-2023 09:40-0400 Body temperature 96.9 [degF] Maile Hall Other [employer] Other 01-23-2023 09:40-0400 Body weight 56.88 kg Maile Hall Other [employer] Other 01-23-2023 09:40-0400 Diastolic blood pressure 50 mm[Hg] Maile Hall Other [employer] Other 01-23-2023 09:40-0400 Respiratory rate 16 /min Maile Hall Other [employer] Other 01-23-2023 09:40-0400 SaO2% (BldA) [Mass fraction] 98 % Maile Hall Other [employer] Other 01-23-2023 09:40-0400 Systolic blood pressure 100 mm[Hg] Maile Hall Other [employer] Other 12-14-2022 10:06-0400 Diastolic blood pressure 58 mm[Hg] Joe G Furlong Work Phone: [facility] Work Phone: 12-14-2022 10:06-0400 Diastolic blood pressure 64 mm[Hg] Joe G Furlong Work Phone: [facility] Work Phone: 12-14-2022 10:06-0400 Systolic blood pressure 100 mm[Hg] Joe G Furlong Work Phone: [facility] Work Phone: 12-14-2022 10:06-0400 Systolic blood pressure 110 mm[Hg] Joestalin Younglong Work Phone: [facility] Work Phone: 12-14-2022 10:03-0400 Body height 154.94 cm Joestalin Younglong Work Phone: [facility] Work Phone: 12-14-2022 10:03-0400 Body mass index (BMI) [Ratio] 23.62 kg/m2 Joe G KDWlong Work Phone: [facility] Work Phone: 12-14-2022 10:03-0400 Body surface area Derived from formula 1.55 m2 Joe Younglong Work Phone: [facility] Work Phone: 12-14-2022 10:03-0400 Body weight 56.7 kg Joestalin Younglong Work Phone: [facility] Work Phone: 12-14-2022 10:03-0400 Diastolic blood pressure 58 mm[Hg] Joestalin Younglong Work Phone: [facility] Work Phone: 12-14-2022 10:03-0400 Heart rate 66 /min Joe Younglong Work Phone: [facility] Work Phone: 12-14-2022 10:03-0400 Systolic blood pressure 100 mm[Hg] Joe Mine Younglong Work Phone: [facility] Work Phone: 11-08-2022 19:11-0400 Diastolic blood pressure 68 mm[Hg] [employer] Evi Maradiaga Work Phone: [facility] 11-08-2022 19:11-0400 Heart rate 75 /min [employer] Evi Maradiaga Work Phone: [facility] 11-08-2022 19:11-0400 Respiratory rate 18 /min [employer]-Christiana Maradiaga Work Phone: [facility] 11-08-2022 19:11-0400 SaO2% (BldA) [Mass fraction] 97 % [employer]-Christiana Maradiaga Work Phone: [facility] 11-08-2022 19:11-0400 Systolic blood pressure 151 mm[Hg] [employer]-Christiana Maradiaga Work Phone: [facility] 11-08-2022 17:11-0400 Body height 154.94 cm [employer]-Christiana Maradiaga Work Phone: [facility] 11-08-2022 17:11-0400 Body temperature 97.8 [degF] [employer]-Christiana Maradiaga Work Phone: [facility] 11-08-2022 17:11-0400 Body weight 57.3 kg [employer]- Evi Maradiaga Work Phone: [facility] 10-16-2022 10:33-0400 Body height 154.94 cm Joe Blount HESIODOng Work Phone: [facility] Layer 250 DO Work Phone: 10-16-2022 10:33-0400 Body mass index (BMI) [Ratio] 23.62 kg/m2 Joe Blount HESIODOng Work Phone: [facility] [address] 250 DO Work Phone: 10-16-2022 10:33-0400 Body surface area Derived from formula 1.55 m2 Joe G KDWlong Work Phone: [facility] [address] DO Work Phone: 10-16-2022 10:33-0400 Body weight 56.7 kg Joe G Furlong Work Phone: [facility] [address] DO Work Phone: 10-16-2022 10:33-0400 Diastolic blood pressure 68 mm[Hg] Joe G Furlong Work Phone: [facility] [place] 250 DO Work Phone: 10-16-2022 10:33-0400 Heart rate 66 /min Joe G Furlong Work Phone: [facility] [place] 250 DO Work Phone: 10-16-2022 10:33-0400 Systolic blood pressure 108 mm[Hg] Joe G Furlong Work Phone: [facility] [place] 250 DO Work Phone: 09-04-2022 16:58-0400 Diastolic blood pressure 80 mm[Hg] Joe G Furlong Work Phone: [facility] [address] 250 DO Work Phone: 09-04-2022 16:58-0400 Diastolic blood pressure 88 mm[Hg] Joe G Furlong Work Phone: [facility] [place] 250 DO Work Phone: 09-04-2022 16:58-0400 Systolic blood pressure 148 mm[Hg] [facility] Furlong [facility] Work Phone: 09-04-2022 16:58-0400 Systolic blood pressure 152 mm[Hg] Joe G Furlong Work Phone: [facility] [address] 250 DO Work Phone: 09-04-2022 15:35-0400 Body height 154.94 cm Joe G Furlong Work Phone: [facility] [address] 250 DO Work Phone: 09-04-2022 15:35-0400 Body mass index (BMI) [Ratio] 23.62 kg/m2 Joe G Furlong Work Phone: [facility] [place] 250 DO Work Phone: 09-04-2022 15:35-0400 Body surface area Derived from formula 1.55 m2 Joe G Furlong Work Phone: [facility] [place] 250 DO Work Phone: 09-04-2022 15:35-0400 Body weight 56.7 kg Joe G Furlong Work Phone: [facility] [place] 250 DO Work Phone: 09-04-2022 15:35-0400 Diastolic blood pressure 82 mm[Hg] Joe G Furlong Work Phone: [facility] [place] 250 DO Work Phone: 09-04-2022 15:35-0400 Heart rate 72 /min Joe G Furlong Work Phone: [facility] [place] 250 DO Work Phone: 09-04-2022 15:35-0400 Systolic blood pressure 136 mm[Hg] Joe G Furlong Work Phone: [facility] [place] 250 DO Work Phone: 07-17-2022 12:03-0400 Diastolic blood pressure 94 mm[Hg] Joe G Furlong Work Phone: [facility] [place] 250 DO Work Phone: 07-17-2022 12:03-0400 Systolic blood pressure 154 mm[Hg] Joe G Furlong Work Phone: [facility] [place] [address] DO Work Phone: 07-17-2022 11:16-0400 Diastolic blood pressure 104 mm[Hg] Joe G Furlong Work Phone: [facility] [place] [address] DO Work Phone: 07-17-2022 11:16-0400 Systolic blood pressure 162 mm[Hg] Joe G Furlong Work Phone: [facility] [place] 250 DO Work Phone: 07-17-2022 11:15-0400 Body height 154.94 cm Joe G Furlong Work Phone: [facility] [place] 250 DO Work Phone: 07-17-2022 11:15-0400 Body mass index (BMI) [Ratio] 22.48 kg/m2 Joe G Furlong Work Phone: [facility] [place] 250 DO Work Phone: 07-17-2022 11:15-0400 Body surface area Derived from formula 1.52 m2 Joe G Furlong Work Phone: [facility] [place] 250 DO Work Phone: 07-17-2022 11:15-0400 Body weight 53.98 kg Joe G Furlong Work Phone: [facility] [place] 250 DO Work Phone: 07-17-2022 11:15-0400 Diastolic blood pressure 100 mm[Hg] Joe G Furlong Work Phone: [facility] [place] 250 DO Work Phone: 07-17-2022 11:15-0400 Heart rate 70 /min Joe G Furlong Work Phone: [facility] [place] 250 DO Work Phone: 07-17-2022 11:15-0400 Systolic blood pressure 158 mm[Hg] Joe G Furlong Work Phone: [facility] [place] [address] DO Work Phone: Encounters Encounter Date Encounter Type Care Provider Facility Start: 08-01-2023 End: 08-01-2023 ambulatory [facility] Start: 06-12-2023 End: 06-12-2023 ambulatory IVÁN SAPP Not Available Start: 06-11-2023 Orders Only Evi hendrix BELL VALET-RAND CEMENTER [facility] Phone: [facility] Comment on above: Mixed hyperlipidemia (Primary Dx) Start: 05-30-2023 Encounter for genera l adult medical examination without abnormal findings [facility] Start: 05-30-2023 End: 05-31-2023 Orders Only Evi Maradiaga BELL VAL[employer]AND CEMENTER Work Phone: [facility] - [facility] Comment on above: Flank pain (Primary Dx) Start: 05-30-2023 End: 05-30-2023 Patient encounter procedure Evi Maradiaga BELL VALET[employer]RAND CEMENTER Work Phone: [facility] - [facility] Comment on above: Medicare annual well ness visit, subsequent (Primary Dx); Chronic systolic heart failure (CMS-HCC); Ventricular tachycardia (CMS-HCC); Current moderate episode of major depressive disorder without prior episode (CMS-HCC); 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); Stage 3b chronic kidney disease (CMS-HCC); Mixed hyperlipidemia; Flank pain Start: 05-22-2023 End: 05-23-2023 ambulatory IVÁN SAPP Not Available Start: 05-01-2023 End: 05-02-2023 ambulatory [facility] Start: 04-17-2023 End: 04-18-2023 ambulatory IVÁN SAPP Not Available Start: 04-05-2023 End: 04-05-2023 ambulatory [facility] Start: 04-05-2023 End: 04-05-2023 Office outpatient visit 25 minutes Ale Mosquera MD Work Phone: [facility] Comment on above: CHF (NYHA class II, ACC/AHA stage C) (CMS/HCC); Benign hypertensive heart disease with heart failure (CMS/HCC); LBBB (left bundle branch block); Stage 3b chronic kidney disease (CMS/HCC); Medication course changed Start: 03-29-2023 End: 03-30-2023 ambulatory [facility] Start: 03-16-2023 End: 03-17-[facility] Start: 03-16-2023 End: 03-17-2023 Evaluation and management of inpatient MAU-Christiana Maradiaga Work Phone: [facility] [place] [facility] Work Phone: Start: 03-16-2023 End: 03-17-2023 observation encounter YAHIR Maradiaga Work Phone: [facility] Work Phone: Start: 03-05-2023 End: 03-05-2023 ambulatory [facility] Start: 03-05-2023 End: 03-05-2023 Office outpatient visit 25 minutes Ale Mosquera MD Work Phone: [facility] Comment on above: CHF (NYHA class II, ACC/AHA stage C) (CMS/HCC) (Primary Dx); Benign hypertensive heart disease with heart failure (CMS/HCC); LBBB (left bundle branch block); Hypernatremia; Hyponatremia Start: 01-23-2023 End: 01-23-2023 ambulatory Maile Hall Other [employer] Other Start: 01-23-2023 Office outpatient vi sit 25 minutes Maile Hall [facility] Nephrology Sid Start: 12-14-[address] Ale Leon ty: Start: 11-08-2022 End: 11-08-2022 Emergency department patient visit Nishant Lucio Facility:[facility] Start: 11-08-2022 End: 11-08-2022 Emergency department patient visit [employer]-Christiana Maradiaga Work Phone: [facility] Work Phone: Start: 10-19-2022 Chart Update Joe Barcenas ng Work Phone: [facility] [place] [address] DO Work Phone: Start: 10-16-2022 AUDIT Joe Barcenas ng Work Phone: [facility] [place] 250 DO Work Phone: Start: 10-16-2022 ambulatory ALE MOSQUERA Facility:[id number] Start: 10-16-[address] Ale Leon ty: Start: 10-16-2022 Office outpatient vi sit 25 minutes Joe Barcenasng Work Phone: [facility] Work Phone: Start: 09-28-2022 AUDIT Joe Barcenas ng Work Phone: [facility] [place] 250 DO Work Phone: Start: 09-04-2022 Office outpatient vi sit 25 minutes Joe Callejas Work Phone: [facility] [place] 250 DO Work Phone: Start: 09-04-[address] Ale Leon ty: Start: 08-14-2022 End: 08-15-[address] DOCTOR AMBROSE Facility:[facility] Start: 08-09-2022 End: 08-09-2022 ambulatory Maile Hall Facility:[facility] Start: 08-07-2022 Telephone encounter Joe Blount Navi annie Work Phone: [facility] 250 DO Work Phone: Start: 07-27-2022 End: 08-23-[address] DOCTOR AMBROSE Facility:[facility] Start: 07-17-2022 Office outpatient vi sit 25 minutes Joestalin Youngniking Work Phone: [facility] [place] [address] DO Work Phone: Start: 07-17-2022 Patient encounter procedure Joe Youngnikilópez Work Phone: [facility] [place] 250 DO Work Phone: Start: 07-17-[address] Ale Leon ty: Start: 07-10-[address] Ale Leon ty:[facility] Start: 07-06-[address] Ale Leon ty:[id number] Start: 07-05-2022 End: 07-08-2022 Evaluation and management of inpatient vEi Maradiaga Facility:[facility] Start: 08-05-2018 End: 08-07-2018 Evaluation and management of inpatient PHYSICIAN UNKNOWN Facility:[facility] Procedures Date Procedure Procedure Detail Performing Clinician Start: 05-30-2023 Urnls dip stick/tabl et rgnt non-auto w/o micrscp Evi Maradiaga [employer] C[employer]ER Work Phone: Start: 05-30-2023 Adult depression scr eening assessment Evi Maradiaga BELL VAL[employer]RAND CEMENTER Work Phone: Start: 04-05-2023 FOLLOW UP IN CARDIOLOGY ALE MOSQUERA Start: 03-16-2023 CT of head without contrast [employer]-C Evi Maradiaga Work Phone: Start: 03-16-2023 Plain chest X-ray [employer] Evi Maradiaga Work Phone: Start: 03-16-2023 SARS-CoV-2, Influenz a & RSV (PCR) [employer]C Eviabril Maradiaga Work Phone: Start: 11-08-2022 CT of head without contrast [employer] Evi Maradiaga Work Phone: Start: 11-08-2022 Plain chest X-ray [employer]C Evi Maradiaga Work Phone: Start: 10-16-2022 Echocardiography Joe Callejas Work Phone: Operative procedure on knee Joe Callejas Work Phone: NEGATED: Highlighted row has not occurred! Colonoscopy Joe Callejas Work Phone: Plan of Treatment Date Care Activity Detail Author Start: 02-22-2033 DTaP,Tdap and Td Vac cines (2 - Td or Tdap) DTaP,Tdap and Td Vaccines (2 - Td or Tdap) [facility] Start: 02-22-2033 DTaP/Tdap/Td Vaccine s (2 - Td or Tdap) DTaP/Tdap/Td Vaccines (2 - Td or Tdap) [facility] Start: 05-29-2024 Adult BMI Screening Adult BMI Screen ing [facility] Start: 05-29-2024 Depression Screening Depression Scre ening [facility] Start: 05-29-2024 Fall Risk Screening Fall Risk Screen ing [facility] Start: 05-29-2024 Medicare Annual Well ness Visit Medicare Annual Wellness Visit [facility] Start: 05-29-2024 Tobacco Screening Tobacco Screening [facility] Start: 12-03-2023 End: 12-03-2023 Patient encounter procedure 12/03/2023 1:00 PM EDT [facility] [address] [place] [id number] Evi Maradiaga, BELL VALET-RAND CEMENTER [address] [place] [address] [facility] Start: 10-17-2023 Echocardiography Echocardiogram [facility] Start: 10-04-2023 End: 10-04-2023 Patient encounter procedure 10/04/2023 9:30 AM EDT Office Visit [facility] [address] [facility] [address] [place] [address] Ale Mosquera MD [address] [place] [address] [address] [place], [place] [id number] [facility] Start: 04-05-2023 End: 04-05-2024 Basic metabolic 2000 panel - Serum or Plasma Basic Metabolic Panel Lab Routine CHF (NYHA class II, ACC/AHA stage C) (CMS/HCC) Medication course changed Expected: 04/05/2023 (Approximate), Expires: 04/05/2024 [facility] Service Area Work Phone: Comment on above: Expected: 04/05/2023 (Approximate), Expires: 04/05/2024 Start: 04-05-2023 End: 04-05-2023 Patient encounter procedure 04/05/2023 10:15 AM EST Office Visit [facility] [address] [facility] [address] [place] [address] Ale Mosquera MD [address] [facility] [address] [place], [place] [id number] [facility] Start: 03-17-2023 Blood chemistry [facility] Start: 03-17-2023 End: 03-17-2023 [facility] Start: 03-16-2023 End: 03-16-2023 [facility] Start: 03-16-2023 Physical therapy procedure [facility] Start: 03-16-2023 Referral to occupati onal therapist [facility] Start: 03-16-2023 Referral to sealer sander [facility] Start: 03-16-2023 Hospital admission [facility] Start: 03-16-2023 Referral to aqua ammonia operator [facility] Start: 03-14-2023 COVID-19 Vaccine (4 - Moderna series) COVID-19 Vaccine (4 - Moderna series) [facility] Start: 03-05-2023 End: 03-05-2024 Basic metabolic 2000 panel - Serum or Plasma Basic Metabolic Panel Lab Routine Hypernatremia Expected: 03/05/2023 (Approximate), Expires: 03/05/2024 [facility] Service Area Work Phone: Comment on above: Expected: 03/05/2023 (Approximate), Expires: 03/05/2024 Start: 12-19-2022 NPVRFRL, Provider: Evette Strong, Status: Pen, Time: 4:20 PM NPVRFRL, Provider: Evette Strong, Status: Pen, Time: 4:20 PM -[facility] 250 DO Work Phone: Start: 12-14-2022 FUV, Provider: Ale Mosquera, Status: Pen, Time: 9:45 AM FUV, Provider: Ale Mosquera, Status: Pen, Time: 9:45 AM [facility] [place] 250 DO Work Phone: Start: 10-16-2022 FUV, Provider: Ale Mosquera, Status: Pen, Time: 10:15 AM FUV, Provider: Ale Mosquera, Status: Pen, Time: 10:15 AM -[facility] 250 DO Work Phone: Start: 09-04-2022 FUV, Provider: Ale Mosquera, Status: Pen, Time: 3:15 PM FUV, Provider: Ale Mosquera, Status: Pen, Time: 3:15 PM -[facility] 250 DO Work Phone: Start: 2000 Administration of varicella zoster vaccine Zoster (Shingles) Vaccine (1 of 2) [facility] Start: 2000 Zoster Vaccines (1 of 2) Zoste r Vaccines (1 of 2) [facility] Start: 1995 Screening for malign ant neoplasm of colon Colonoscopy [facility] Start: 1990 Screening for malign ant neoplasm of breast Mammogram [facility] Start: 1968 Diabetes mellitus screening Diabetes Screening [facility] Start: 1968 Hepatitis C screening Hepatitis C Sc muna [facility] Start: 1950 Creatinine measurement Creatinine Le earle [facility] Start: 1950 Lipid panel Lipid Panel [facility] Start: 1950 Medicare Annual Well ness Visit Medicare Annual Wellness Visit (AWV) [facility] Start: 1950 Potassium measurement Potassium Leve l [facility] Start: 1950 Screening for malign ant neoplasm of colon [facility] Start: 1950 Screening for osteoporosis Bone Dens ity Scan [facility] End: 05-29-2024 Bacteria identified in Urine by Culture Urine culture (clean catch) Microbiology Routine Flank pain 1 Occurrences starting 05/30/2023 until 05/29/2024 [employer] Work Phone: Comment on above: 1 Occurrences starti ng 05/30/2023 until 05/29/2024 Patient Education Hyponatremia Generalized Weakness [facility] Work Phone: Patient referral [facility] Work Phone: Immunizations Immunization Date Immunization Notes Care Provider Fa 02-22-2023 tetanus toxoid, redu lucio diphtheria toxoid, and acellular pertussis vaccine, adsorbed Evi Maradiaga BELL VAL[employer]-RAND CEMENTER Work Phone: [facility] 01-31-2023 Pneumococcal Conjuga te 20-valent Evi Maradiaga BELL VAL[employer]-RAND CEMENTER Work Phone: [facility] 01-03-2023 Influenza, High-dose , Quadrivalent Evi Maradiaga BELL VAL[employer]-RAND CEMENTER Work Phone: [facility] 02-09-2022 Modern COVID-19 Biv al Booster 50 MCG/0.5ML Intramuscular Suspension Joe G KDWlong Work Phone: [facility] 12-20-2021 Fluad Quadrivalent 0 .5 ML Intramuscular Prefilled Syringe Joe G KDWlong Work Phone: [facility] 09-02-2021 Comirnaty 30 MCG/0.3 ML Intramuscular Suspension Joe G KDWlong Work Phone: [facility] [place] 250 DO Work Phone: 02-11-2021 Moderna COVID-19 Vac cine 100 MCG/0.5ML Intramuscular Suspension Joe Furlong Work Phone: [facility] 250 DO Work Phone: 01-13-2021 Fluad Quadrivalent 0 .5 ML Intramuscular Prefilled Syringe Joe Callejas Work Phone: [place] [address] DO Work Phone: 06-21-2020 Moderna COVID-19 Vac cine 100 MCG/0.5ML Intramuscular Suspension Joe Barcenasng Work Phone: [place] [address] DO Work Phone: 05-21-2020 Moderna COVID-19 Vac cine 100 MCG/0.5ML Intramuscular Suspension Joe Callejas Work Phone: [place] [address] DO Work Phone: 12-16-2019 influenza, injectabl e, quadrivalent, preservative free Joe Callejas Work Phone: [place] [address] DO Work Phone: 01-16-2019 Seasonal trivalent influenza vaccine, adjuvanted, preservative free Joe Callejas Work Phone: [place] [address] DO Work Phone: 01-16-2018 Seasonal trivalent influenza vaccine, adjuvanted, preservative free Joe Callejas Work Phone: [place] [address] DO Work Phone: 11-22-2017 pneumococcal polysaccharide vaccine, 23 valent Joe Callejas Work Phone: [place] [address] DO Work Phone: 01-24-2017 influenza, high dose seasonal, preservative-free Joe Barcenasng Work Phone: [place] [address] DO Work Phone: 02-07-2010 influenza virus vacc ine, whole virus Joe Callejas Work Phone: -[facility] 250 DO Work Phone: 01-11-2009 influenza virus vacc ine, whole virus Joe Callejas Work Phone: [facility] 250 DO Work Phone: Payers Date Payer Category Payer Self-pay [id number] 2022 Unknown 2021 Private Health Insurance [facility] [id number] 2021-Present [phone] [address] [place] [address] [id number] 2015 Medicare [id number] 1959 Medicare [id number] 1959 Unknown [id number] 1950 Unknown [id number] 2.16.840.1.577799.3.579.2 .647 1950 Unknown [id number] 2.16.840.1.778519.3.579.2 .593 1950 Unknown [id number] 2.16.840.1.200420.3.579.2 .593 1950 Unknown [id number] 2.16.840.1.272119.3.579.2 .1068 1950 Unknown [id number] 2.16.840.1.016947.3.579.2 .356 1950 Unknown [id number] 2.16.840.1.320339.3.579.2 .356 1950 Unknown [id number] 2.16.840.1.766206.3.579.2 .356 1950 Unknown [id number] 2.16.840.1.558741.3.579.2 .356 1950 Unknown [id number] 2.16.840.1.392192.3.579.2 .356 1950 Unknown [id number] 2.16.840.1.645007.3.579.2 .356 1950 Unknown [id number] 2.16.840.1.598187.3.579.2 .1244 1950 Unknown [id number] 2.16.840.1.712157.3.579.2 .1244 1950 Unknown [id number] 2.16.840.1.544838.3.579.2 .1286 1950 Unknown [id number] 2.16.840.1.854960.3.579.2 .1286 1950 Unknown [id number] 2.16.840.1.197903.3.579.2 .1286 1950 Unknown [id number] 2.16.840.1.612962.3.579.2 .1286 1950 Unknown [id number] 2.16.840.1.417615.3.579.2 .1259 1950 Unknown [id number] 2.16.840.1.476699.3.579.2 .1259 1950 Unknown [id number] 2.16.840.1.407718.3.579.2 .1259 1950 Unknown [id number] 2.16.840.1.121498.3.579.2 .1259 1950 Unknown [id number] 2.16.840.1.678905.3.579.2 .1259 1950 Unknown [id number] 2.16.840.1.870428.3.579.2 .1259 1950 Unknown [id number] 2.16.840.1.370259.3.579.2 .1259 1950 Unknown [id number] 2.16.840.1.365742.3.579.2 .1286 1950 Unknown [id number] 2.16.840.1.259128.3.579.2 .1286 Medicare [id number] Unknown [id number] 2.16.840.1.418799.3.579.2 .531 Unknown [id number] 2.16.840.1.826678.3.579.2 .531 Unknown [id number] 2.16.840.1.885934.3.579.2 .531 Unknown [id number] 2.16.840.1.141500.3.579.2 .531 Social History Date Type Detail Facility Start: 10-10-2021 End: 03-05-2023 No illicit drug use No illicit drug use [facility] Comment on above: 1 WINE DAILY; 8 CUPS COFFEE DAILY, 4 DIET COKE DAILY; 4-5CUPS COFFEE DAILY , 4 caf free DIET COKE DAILY; Start: 07-05-2021 End: 11-08-2022 Tobacco smoking status NHIS Never smoked tobacco (finding) [facility] Start: 1950 Sex Assigned At Female F [facility] Start: 10-10-2021 End: 03-05-2023 Sex Assigned At [facility] Start: 07-05-2021 End: 03-05-2023 Tobacco use and exposure Smokeless tobacco non-user [facility] Work Phone: Start: 03-05-2023 End: 05-30-2023 Alcohol intake Current drinker of alcohol (finding) [facility] Work Phone: Start: 1950 Sex Assigned At Not on file U [facility] Work Phone: Start: 02-23-2023 End: 04-05-2023 Exposure to SARS-CoV-2 (event) Not sure [facility] Do you belong to any clubs or organizations such as pentecostalism groups, unions, fraternal or athletic groups, or school groups? No [facility] Are you now , , , , never or living with a partner? Patient declined [facility] How often to you hav e a drink containing alcohol? Monthly or less [facility] How many standard dr inks containing alcohol do you have on a typical day? 1 or 2 [facility] How often do you hav e 6 or more drinks on 1 occasion? Never [facility] Do you feel stress - tense, restless, nervous, or anxious, or unable to sleep at night because your mind is troubled all the time - these days [OSQ] Not at all [facility] Start: 10-10-2021 Alcohol Comment on occasion [facility] Goals Date Patient Goal Desired Activity /State Personal health goal Comment on above: Formatting of this n ote might be different from the original. Evaluation of progress towards goal: safe transition from hospital to home. Functional Status Date Assessment Result Facility 03-17-2023 Functional status Patient at Baseline [facility] Work Phone: Mental Status Date Assessment Result Facility 03-17-2023 Cognitive function Cognitive Sta tus Patient at Baseline [facility] Work Phone: Clinical Notes 07-09-2022 to 05-30-2023 Evi Maradiaga APRN-RAND CEMENTER - 05/30/2023 1:00 PM Rebecca Mosquera MD - 04/05/2023 10:15 AM ESTPatient Instructions Note Date & Type Note Facility 05-30-2023 History of Present illness Narrative Subjective SUBJECTIVE: Patient ID: Arianna Martinez is a 73 y.o. female who presents for a Medicare Annual Wellness exam. Presents for Annual Medicare wellness She lives home alone but has strong family support systems Drives. Is currently wearing leg orthopedic brace right leg. Fell in March, resulting in right patellar fracture. Is being monitored by orthopedic. Monitored by cardiology routinely Annual Exam Pertinent negatives include no chest pain, chills or fever. The following portions of the patient's history were reviewed and updated as appropriate: allergies, current medications, past family history, past medical history, past social history, past surgical history and problem list. Past Surgical History: Procedure Laterality Date CARDIAC CATHETERIZATION N/A 07/07/2021 Performed by Momo Fernando MD at [facility] Coronary angiogram and left ventricular gram/pressure N/A 07/07/2021 Performed by Momo Fernando MD at [facility] Past Medical History: Diagnosis Date CHF (congestive heart failure) ([facility]) Depression Hyponatremia Knee cap dislocation, left, subsequent encounter 04/14/2023 Panic attacks Sodium (Na) deficiency Immunization History Administered Date(s) Administered COVID-19, mRNA, LNP-S, PF, 100mcg/0.5mL Dose 05/21/2020, 06/21/2020, 02/11/2021 Covid-19, Mrna, Lnp-s, Bivalent, Pf, 50mcg/0.5ml or 25mcg/0.25ml 02/09/2022 Covid-19, Mrna, Lnp-s, Pf, 30 Mcg/0.3 Ml Dose, Pancho-sucrose 09/02/2021 Covid-19,mrna, Lnp-s, Pf, 50mcg/0.5ml 12+ 01/17/2023 Influenza High Dose Preservative Free IM 01/24/2017 Influenza Vaccine, Quadrivalent, Adjuvanted 01/13/2021, 12/20/2021 Influenza Whole 01/11/2009, 02/07/2010 Influenza, High-dose, Quadrivalent 01/03/2023 Influenza, Injectable, quadrivalent (PF) 12/16/2019 Influenza, Trivalent, Adjuvanted 01/16/2018, 01/16/2019 Pneumococcal Conjugate 20-valent 01/31/2023 Pneumococcal Polysaccharide 11/22/2017 Tdap 02/22/2023 AWV FLOWSHEET : Lifestyle Assessment Do you smoke or use smokeless tobacco?: No If you smoke or use smokeless tobacco, are you ready to quit?: NA Are you exposed to secondhand smoke?: No On average, how many drinks of alcohol do you consume in a week?: 2 - 5 Do you exercise for 30 or more minutes on average at least 3 days a week?: Sometimes Do you have any tooth, denture, or oral problems?: No Do you snore or has anyone told you that you snore?: No Do you try to eat a balanced diet?: Yes Do you have difficulty performing any of these activities? (check all that apply): None Do you have difficulty performing any of these activities? (check all that apply): None Fall Risk Depression Screening Little interest or pleasure in doing things: Not at all Feeling down, depressed, or hopeless: Not at all Safety Assessment Do you have throw rugs on the floor?: (!) Yes Do you feel safe at your home?: Yes Do you feel unsteady when walking?: (!) Yes Are you having difficulty with driving?: No Do you have trouble seeing?: No What assistive device do you use? (check all that apply): (!) Cane Throw rugs increase risk for slips, trips, and falls Has cane and walker if feels unsteady Hearing Assessment Do you strain or struggle to hear/understand conversations?: No Do you have trouble hearing the television or radio when others do not?: No Does your family ever voice concerns about your hearing?: No Do you wear hearing aid/s?: No Personal Health During the past 4 weeks, how would you rate your overall health?: Good Do you understand how to take all of your medications?: Yes How confident are you that you can control and manage most of your health problems?: Very confident In the past 12 months, how many times have you been hospitalized?: (!) 2 or more Recent hospitalization for right patellar fracture. Spent overnight at [facility] End of Life Planning Do you have a living will?: Yes Do you have a durable power of mergers and acquisitions attorney?: Yes Cognitive Screening Do you have trouble remembering or recalling facts or events?: No Do family members or caregivers report that you have difficulty remembering things?: No Clock Drawing Test: Normal REVIEW OF SYSTEMS: Review of Systems Constitutional: Negative for chills and fever. HENT: Negative. Eyes: Negative for visual disturbance. Respiratory: Negative for chest tightness and shortness of breath. Cardiovascular: Negative for chest pain and palpitations. Gastrointestinal: Negative. Endocrine: Negative. Genitourinary: Negative for menstrual problem and pelvic pain. Musculoskeletal: Negative. Right knee patellar fracture Skin: Negative. Allergic/Immunologic: Negative. Neurological: Negative for syncope and facial asymmetry. Hematological: Does not bruise/bleed easily. Psychiatric/Behavioral: Negative. Objective PHYSICAL EXAMINATION: Vitals: 05/30/23 1313 BP: 120/70 BP Site: Left Arm BP Postition: Sitting Pulse: 76 Temp: 36.7 C (98.1 F) TempSrc: Oral SpO2: 97% Weight: 57.9 kg (127 lb 9.6 oz) Height: 152.4 cm (5') . Relevant Labs: No results found for: HGBA1C No results found for: MICROALBUR , URINECREAT , ALBCREATRA Lab Results Component Value Date TSH 2.34 10/11/2021 T4 0.98 10/11/2021 Lab Results Component Value Date VITD25 24.9 (L) 05/22/2023 Lab Results Component Value Date WBC 5.9 07/24/2022 RBCCOUNT 4.25 07/24/2022 HGB 13.0 07/24/2022 HCT 38.5 07/24/2022 MCV 91 07/24/2022 MCH 30.6 07/24/2022 MCHC 33.8 07/24/2022 RDW 13.6 07/24/2022 PLT 414 07/24/2022 MPV 7.4 07/24/2022 No results found for: PSA Lab Results Component Value Date SODIUM 126 (L) 05/22/2023 K 4.4 05/22/2023 CL 97 (L) 05/22/2023 CO2 21 (L) 05/22/2023 ANIONGAP 8 05/22/2023 BUN 9 05/22/2023 GLU 96 05/22/2023 CALCIUM 8.8 05/22/2023 TOTALPROTEI 6.7 05/22/2023 ALBUMIN 4.3 05/22/2023 ALKPHOS 76 05/22/2023 AST 14 05/22/2023 ALT 10 05/22/2023 GFR >60 10/17/2021 GFR >60 10/17/2021 Imaging: X-ray knee right 1 or 2 views Result Date: 05/23/2023 Narrative: Imaging Result: AP and lateral of right knee showed patellar fracture to be in unchanged position and alignment compared to prior x-rays. There is increased callus formation at the fracture site compared to prior x-rays. Impression: Healing patellar fracture right knee X-ray knee right 1 or 2 views Result Date: 05/06/2023 Narrative: Imaging Result: AP and lateral of right knee showed patellar fracture to be in unchanged position and alignment compared to prior x-rays. There is increased callus formation at the fracture site compared to prior x-rays. Impression: Healing patellar fracture right knee Physical Exam Vitals and nursing note reviewed. Constitutional: General: She is not in acute distress. Appearance: She is well-developed. She is not diaphoretic. HENT: Head: Normocephalic and atraumatic. Right Ear: Tympanic membrane and external ear normal. Left Ear: Tympanic membrane and external ear normal. Nose: Nose normal. Mouth/Throat: Mouth: Mucous membranes are moist. Pharynx: No oropharyngeal exudate. Eyes: General: Right eye: No discharge. Left eye: No discharge. Conjunctiva/sclera: Conjunctivae normal. Pupils: Pupils are equal, round, and reactive to light. Neck: Thyroid: No thyromegaly. Vascular: No JVD. Cardiovascular: Rate and Rhythm: Normal rate and regular rhythm. Heart sounds: Normal heart sounds. No murmur heard. No friction rub. No gallop. Pulmonary: Effort: Pulmonary effort is normal. Breath sounds: Normal breath sounds. Abdominal: General: Bowel sounds are normal. There is no distension. Palpations: Abdomen is soft. There is no mass. Tenderness: There is no abdominal tenderness. Musculoskeletal: General: Tenderness present. Normal range of motion. Cervical back: Normal range of motion and neck supple. Comments: Milder tenderness with swelling surrounding right knee Lymphadenopathy: Cervical: No cervical adenopathy. Skin: General: Skin is warm and dry. Capillary Refill: Capillary refill takes less than 2 seconds. Neurological: Mental Status: She is alert and oriented to person, place, and time. Deep Tendon Reflexes: Reflexes are normal and symmetric. Psychiatric: Mood and Affect: Mood normal. Behavior: Behavior normal. Thought Content: Thought content normal. Judgment: Judgment normal. Assessment/Plan ASSESSMENT/PLAN Arianna was seen today for annual exam. Diagnoses and all orders for this visit: Medicare annual wellness visit, subsequent Chronic systolic heart failure ([facility]) Ventricular tachycardia ([facility]) Current moderate episode of major depressive disorder without prior episode ([facility]) - sertraline (ZOLOFT) 50 mg tablet; Take 1 tablet (50 mg total) by mouth in the morning. 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) Stage 3b chronic kidney disease (CMS-HCC) Mixed hyperlipidemia - Lipid panel; Future Acute cystitis without hematuria - POCT urinalysis dipstick only Mixed hyperlipidemia- check lipid panel CKD stage 3b-Reviewed labs and urine completed by nephrology, 05/22/23 -Stable / improved CKD stage 3b. Creatinine 0.64, GFR 990 -Chronic hyponatremia- 128 -Urinalysis reveals moderate leukocyte esterase. Patient does voice lower back pain. Checked urine in office today, small amount leukocyte esterase, send urine for culture. Depression Depression: Not at risk (05/30/2023) PHQ-2 PHQ-2 Score: 0 Doing well with sertraline. Continue 50 mg oral daily CAD- Managed by cardiology [facility], [facility] -History of CHF Chronic systolic left sided heart failure secondary to nonischemic cardiomyopathy, functional class III LEVF 25%, LBBB -History Takotsubo cardiomyopathy Total time spent was 35 minutes: Preparing to see the patient (e.g., review of tests) Obtaining and/or reviewing separately obtained history Performing a medically appropriate examination and/or evaluation Counseling and educating the patient/family/caregiver Ordering medications, tests, or procedures Return in about 6 months (around 11/30/2023). There are no Patient Instructions on file for this visit. BHARATH Cagle 05/30/23 1505 documented in this encounter [place] 04-05-2023 History of Present illness Narrative This is a 6 week FU. Subjective : Accompanied by daughter to the office. Developed headache 2 with one of the medications prescribed at last visit . Most likely this is isosorbide. Had 1 bout of presyncope, called for help, was evaluated in the emergency department and released. Denies shortness of breath with routine activities. Not orthostatic in office today. Reviewed hospital records from 03/16/2023. History so Far : 1. Nonspecific intraventricular conduction block, QRS duration 140 ms on EKG 07/17/2022 2. Chronic systolic left heart failure related to nonischemic cardiomyopathy, functional class II 3. Tendency for hyponatremia, associated with symptoms of mental fog/confusion 4. Hypertension, labile, at times blood pressure reportedly goes down into the 80s, but she does not get symptomatic 5. Nonischemic myocardial injury-subsequent visit 6. Echocardiogram June 2022-LVEF 25% abnormal septal motion consistent with left bundle branch block global hypokinesis normal RV systolic function trace tricuspid regurgitation aortic sclerosis mitral sclerosis normal IVC, left atrial diameter 3.5 cm, left atrial volume index 26 mm per metered squared 7. Echocardiogram January 2022-LVEF 35 to 40% left atrial volume index 30 mm per metered squared LV end-systolic dimension 3.9 cm left atrial volume index 30.2 mm per metered squared 8. Entresto prohibitively expensive. 9. GFR greater than 60 creatinine clearance 48 6. Nephrology had recommended discontinuation of sertraline because it could be contributory to hyponatremia, patient has chosen to stay on this medication 7. Previous cardiology notes suggest that patient probably had Takotsubo for her cardiomyopathy, mid ventricular variant 8. Patient has had a cardiac catheterization at an outside facility around June 2021, and based on the reports there was no coronary artery disease. Takotsubo cardiomyopathy was suspected. I have since then reviewed notes, and although the cardiac catheterization report is not there, assessment was that patient had nonischemic cardiomyopathy, presumably Takotsubo 9. Echocardiogram September 2022-LVEF 45 to 50%, abnormal septal motion related to left bundle branch block, significant improvement in LV ejection fraction compared to the study of June 2022 left atrial diameter 3.3 cm LV end-systolic dimension 3.8 cm 10. Persistent hyponatremia associated with symptoms, following up with nephrology. 11. Dizziness and borderline arterial hypotension, not orthostatic Objective Wt Readings from Last 3 Encounters: 04/05/23 58.1 kg (128 lb) 03/05/23 58.1 kg (128 lb) 12/14/22 56.7 kg (125 lb) Visit Vitals BP 128/88 (BP Location: Right arm, Patient Position: Standing) Pulse 66 Ht 1.549 m (5' 1 ) Wt 58.1 kg (128 lb) BMI 24.19 kg/m Smoking Status Never BSA 1.58 m Physical Exam: GENERAL APPEARANCE: in no acute distress. CHEST: Symmetric and non-tender. INTEGUMENT: Skin warm and dry HEENT: No gross abnormalities identified.No pallor or scleral icterus. NECK: Supple, no JVD, no bruit. NEURO/PSHCY: Alert and oriented x3; appropriate behavior and responses and responses LUNGS: Clear to auscultation bilaterally; normal respiratory effort. HEART: Rate and rhythm regular with no evident murmur; no gallop appreciated. ABDOMEN: Soft, non tender. MUSCULOSKELETAL: No gross deformities. EXTREMITIES: Warm There is no edema noted. Meds: Current Outpatient Medications Medication Instructions carvedilol (Coreg) 25 mg tablet 1 tablet, oral, 2 times daily with meals digoxin (Lanoxin) 125 MCG tablet TAKE 1 TABLET BY MOUTH ONCE DAILY 3 DAYS A WEEK. hydrALAZINE (APRESOLINE) 25 mg, oral, 3 times daily melatonin 10 mg tablet Melatonin Active 10 MG PO Bedtime July 04, 2022 12:00am potassium chloride CR 20 mEq ER tablet 20 mEq, oral, 2 times daily sertraline (ZOLOFT) 50 mg, oral, Daily before breakfast LABS: Reviewed labs pertaining to ER visit and overnight hospital stay February 2023. Her sodium level continues to fluctuate. She was as low as 130, daughter believes it was lower than that. At the time of discharge sodium was 134 potassium 4.3 GFR greater than 90. Her BNP level was 34 Patient Active Problem List Diagnosis Date Noted Medication course changed 03/05/2023 Abnormal EKG 03/02/2023 CHF (NYHA class II, ACC/AHA stage C) ([facility]) 03/02/2023 Benign hypertensive heart disease with heart failure ([facility]) 03/02/2023 Hypokalemia 03/02/2023 Hyponatremia 03/02/2023 LBBB (left bundle branch block) 03/02/2023 Stage 3b chronic kidney disease ([facility]) 03/02/2023 Acute systolic heart failure ([facility]) 03/02/2023 Assessment: 1. CHF (NYHA class II, ACC/AHA stage C) ([facility]) Follow Up In Cardiology 2. Benign hypertensive heart disease with heart failure ([facility]) Follow Up In Cardiology 3. LBBB (left bundle branch block) Follow Up In Cardiology 4. Stage 3b chronic kidney disease ([facility]) 5. Medication course changed Patient with chronic systolic left heart failure currently functional class II, with steady improvement in LV function. Tendency for orthostatic hypotension presyncope and syncope, symptoms have improved, however she had 1 episode that prompted ER visit February 2023. Fluctuating sodium levels-nephrology managing, when numbers drop she does get confused. She is off all cardiac medications that can cause hyponatremia. Discussed with the patient and daughter to bring this up with nephrology as to any additional measures that can be taken. Patient is finding it difficult to do 3 times daily hydralazine, will reduce dose to 25 mg p.o. twice daily. Hydralazine nitrate combination is being used for systolic heart failure, she is developing intractable headache to nitrates, so I am discontinuing the isosorbide. Provider Attestation - Scribe documentation All medical record entries made by the Scribe were at my direction and personally dictated by me. I have reviewed the chart and agree that the record accurately reflects my personal performance of the history, physical exam, discussion and plan. Follow up : 6 months PATRICE Christiansonibe Attestation By signing my name below, I, Ray Zurita LPN attest that this documentation has been prepared under the direction and in the presence of Ale Mosquera MD. documented in this encounter [facility] Work Phone: 04-05-2023 Instructions Tiffanie Hernandez LPN - 04/05/2023 10:15 AM EST Please bring all medicines, vitamins, and herbal supplements with you when you come to the office. Prescriptions will not be filled unless you are compliant with your follow up appointments or have a follow up appointment scheduled as per instruction of your physician. Refills should be requested at the time of your visit. Fall Prevention Education Given documented in this encounter [facility] Work Phone: 03-17-2023 Progress note Note Date/Time March 17, 2023 2:12pm [facility] [address] [place] [address] Hospitalist Progress Note Signed Patient: Arianna Martinez MR#: [id number] : 1950 Acct:[id number] Age/Sex: 72 / F Adm Date: 3 Loc: 3T Room: [address] [place] [address] Type: ADM INOo Attending Dr: Phyllis Burciaga MD Copies to: ~ Date of Service: 03/17/2023 Subjective Subjective Narrative: Patient has been seen and examined today. She is doing better, she feels stronger, denies any dizziness any lightheaded Physical exam: General -awake, alert, oriented ?3, not in acute distress Cardiovascular -S1 with S2, no murmurs, no rubs, no gallops Pulmonary - clear to auscultation bilaterally Gastrointestinal - abdomen is soft, nondistended, nontender, bowel sounds positive, there is no rigidity, no rebound Extremities -no edema Neurological -no focal neurological dysfunction noted Laboratory work up and Imaging studies reviewed quality assurance monitor body - reviewed, no significant arrhythmias, remains in normal sinus rhythm EKG - personally reviewed by me. NSR with nonspecific changes with old left bundle branch block Exam Physical Exam Vital Signs: Temp Pulse Resp BP Pulse Ox O2 Del Method 36.6 C 62 18 123/65 95 Room Air 03/17/23 11:05 03/17/23 11:05 03/17/23 11:05 03/17/23 11:05 03/17/23 11:05 03/17/23 11:05 Objective Lab Results 03/17/23 06:00 03/17/23 06:00 Microbiology Results Microbiology 03/16/23 15:50 Nasopharyngeal SARS-CoV-2, Influenza & RSV (PCR) - Final Meds Allergies and Active Meds Allergies No Known Allergies Allergy (Verified 03/16/23 13:11) Active Meds: Active Medications Generic Name Dose Route Start Last Admin Trade Name Freq PRN Reason Stop Dose Admin Acetaminophen 650 mg 03/16/23 20:25 03/17/23 11:10 Acetaminophen 325 Mg Tablet PO 03/15/24 20:24 650 mg Q4H PRN Administration Pain Scale 1 - 5 Carvedilol 25 mg 03/16/23 21:00 03/17/23 08:00 Carvedilol 25 Mg Tablet PO 03/15/24 20:59 25 mg BID MAGALYS Administration Digoxin 125 mcg 03/17/23 09:00 Digoxin 125 Mcg Tablet PO 03/16/24 08:59 DAILY MAGALYS Docusate Sodium 200 mg 03/16/23 20:25 Docusate 100 Mg Capsule PO 03/15/24 20:24 BID PRN Constipation Enoxaparin Sodium 40 mg 03/17/23 10:00 03/17/23 09:38 Enoxaparin 40 Mg/0.4 Ml Syringe SUBCUT 03/16/24 09:59 40 mg DAILY@1000 MAGALYS Administration Furosemide 20 mg 03/17/23 08:00 03/17/23 07:59 Furosemide 20 Mg Tablet PO 03/16/24 07:59 20 mg DAILY.8A MAGALYS Administration Hydralazine HCl 25 mg 03/16/23 22:00 03/17/23 13:26 Hydralazine 25 Mg Tablet PO 03/15/24 21:59 25 mg TID MAGALYS Administration Hydralazine HCl 10 mg 03/16/23 20:25 Hydralazine 20 Mg/Ml Vial IV-PUSH 03/15/24 20:24 Q4H PRN if SBP > 185 Isosorbide Dinitrate 10 mg 03/16/23 21:00 03/17/23 08:00 Isosorbide Dinitrate 10 Mg Tablet PO 03/15/24 20:59 10 mg BID MAGALYS Administration Potassium Chloride 20 meq 03/16/23 21:00 03/17/23 07:59 Potassium Chloride Er 20 Meq Tab.Er.Prt PO 03/15/24 20:59 20 meq BID MAGALYS Administration Sertraline HCl 50 mg 03/17/23 09:00 03/17/23 08:02 Sertraline 50 Mg Tablet PO 03/16/24 08:59 50 mg DAILY MAGALYS Administration Sodium Chloride 0 ml 03/16/23 13:11 03/16/23 15:37 Sodium Chloride 0.9 % 10 Ml Syringe IV-PUSH 03/15/24 13:10 10 ml PRN PRN Administration Flush A&P - Hospitalist Assessment/Plan (1) Pre-syncope: (2) Hyponatremia: Plan 1. Suspected syncopal episode, with underlying history of nonischemic cardiomyopathy with ejection fraction 25% by echocardiogram in June 2022, patient denies any underlying coronary artery disease no cardiac stents in the past EKG showed old left bundle branch block with PVCs Telemetry normal sinus, no arrhythmias Appreciate cardiology input Per patient aqua ammonia operator discontinued ARB's and placed her on some other medication, which I recommend to continue what ever her aqua ammonia operator recommend 2. Acute on chronic hyponatremia, probably just SIADH I do not suspect the reason for her syncopal episode Sodium level improved 3. Chronic heart failure with reduced ejection fraction, currently compensated Continue with beta-blockers and digoxin, Lasix, hydralazine and nitrates Valsartan recently was stopped by her aqua ammonia operator 4. DVT prophylaxis Lovenox The patient care was discussed with the patient the patient's family at the bedside. Patient is DNR CCA withintubation Documented By: Phyllis Burciaga MD 03/17/231410 Signed By: <Electronically signed by Phyllis Burciaga MD> 03/17/231411 [facility] Work Phone: 1(620) 602-711212-23-2023 History and physical note Author Phyllis Burciaga [facility] March 17, 2023 2:11pm Note Date/Time March 16, 2023 8:19pm [facility] [address] [place] [address] Hospitalist H&P Signed Patient: Arianna Martinez MR#: [id number] : 1950 Acct:[id number] Age/Sex: 72 / F Adm Date: 3 Loc: Room: [address] [place] [address] Type: ADM INOo Attending Dr: Phyllis Burciaga MD Copies to: MD Evi Pappas NP-C~ HPI DATE OF EXAMINATION: 03/16/23 CHIEF COMPLAINT: Status post fall HISTORY OF PRESENT ILLNESS: 72 years old female with underlying history of SIADH/chronic hyponatremia presented with weakness and fall with questionable syncope. It seems like the patient was in the bathroom when she became very weak, her legs gave up and she slowed down to the floor. Patient is not sure if she lost consciousness. She denies any prodromal symptoms such as chest pain, shortness of breath, palpitations, dizziness lightheadedness. However after the fall she complained of some dizziness. To emergency room she reported that she had some headache and dizziness after getting out of the bed. She denies any underlying history of coronary artery disease apart from congestive heart failure and following with aqua ammonia operator at . Recently her ARB's was stopped and she was started on some new medication, unsure which 1. Usually patient feels like that when her sodium level goes low. Patient denied any injury. Currently she does not complain of any headache, does not complain of any joint pain. She denies any abdominal pain. No nausea no vomiting no diarrhea. No dysuria urgency frequency. She does have chronic neuropathy in her bilateral lower extremities, which causing her unsteady gait. Currently she denies any dizziness. 10 systems are reviewed and are negative apart as mentioned H&P General -patient is awake alert oriented ?3, does not appear to be in distress, she appears to be weak and fatigued, pale HEENT -normal oropharyngeal mucosa without any ulcers or exudates Cardiovascular -S1 plus S2, with regular rate, without any murmurs, gallops, rubs Pulmonary -clear to auscultation bilaterally Gastrointestinal -abdomen is soft, nondistended, nontender, bowel sounds positive, no rigidity, no rebound Genitourinary -deferred Musculoskeletal - no significant joint swelling, full range of motion Neurological -no focal Skin -no significant ulcers, no rash noted Extremities - no edema in bilateral lower extremities noted Psychiatry - appropriate affect Laboratory work up, imaging studies reviewed EKG personally reviewed by me normal sinus rhythm with PVCs, with old left bundle branch block Previous records in the computer system reviewed [facility] Medical History CHF (congestive heart failure) Problem List clean-up per request of [facility]. [facility] Depression Problem List clean-up per request of [facility] Hypon[facility] Problem List clean-up per request of [facility]. [facility] Surgical History Hx of arthroscopy of left knee Problem List clean-up per request of Phys. [facility] Social History Smoking Status: Never smoker Substance Use Type: None Meds Medications and Allergies Allergies No Known Allergies Allergy (Verified 03/16/23 13:11) Home Medications carvedilol 6.25 mg tablet 25 mg PO BID 07/04/22 [History Confirmed 03/16/23] digoxin 125 mcg (0.125 mg) tablet 125 mcg PO DAILY 03/16/23 [History Confirmed 03/16/23] hydralazine 25 mg tablet 25 mg PO TID 03/16/23 [History Confirmed 03/16/23] isosorbide dinitrate 10 mg tablet 10 mg PO BID 03/16/23 [History Confirmed 03/16/23] potassium chloride 20 mEq tablet,extended release 20 meq PO BID 03/16/23 [History Confirmed 03/16/23] sertraline 50 mg tablet 50 mg PO DAILY 03/16/23 [History Confirmed 03/16/23] valsartan 80 mg tablet 80 mg PO DAILY 03/16/23 [History Confirmed 03/16/23] Exam Physical Exam Vital Signs: Temp Pulse Resp BP Pulse Ox O2 Del Method 36.7 C 68 16 125/61 98 Room Air 03/16/23 13:34 03/16/23 19:00 03/16/23 19:00 03/16/23 19:00 03/16/23 19:00 03/16/23 19:00 Results Lab Results Labs: Laboratory Last Values Corrected WBC 10.9 X10E3/uL (3.8-11.6) 03/16/23 15:06 Uncorrected WBC Count 10.9 x10E3/uL (3.8-11.6) 03/16/23 15:06 RBC 4.16 X10E6/uL (3.60-5.00) 03/16/23 15:06 Hgb 12.9 g/dL (11.8-15.4) 03/16/23 15:06 Hct 38.1 % (34.0-46.4) 03/16/23 15:06 MCV 91.5 fl (80-100) 03/16/23 15:06 MCH 31.0 pg (24.7-34.3) 03/16/23 15:06 MCHC 33.8 g/dL (32.0-35.0) 03/16/23 15:06 RDW 13.4 % (11.9-15.3) 03/16/23 15:06 Plt Count 396 x10E3/uL (150-450) 03/16/23 15:06 MPV 7.1 fl (6.3-10.7) 03/16/23 15:06 Neut % (Auto) 78.9 % (.) 03/16/23 15:06 Lymph % (Auto) 14.2 % (.) 03/16/23 15:06 Humphreys % (Auto) 5.8 % (.) 03/16/23 15:06 Eos % (Auto) 0.6 % (.) 03/16/23 15:06 Baso % (Auto) 0.5 % (.) 03/16/23 15:06 Nucleat RBC Rel Count 0.2 /100 WBC (0-0.5) 03/16/23 15:06 Neut # (Auto) 8.6 x10E3/uL (1.8-7.7) H 03/16/23 15:06 Lymph # (Auto) 1.6 x10E3/uL (1.00-4.8) 03/16/23 15:06 Humphreys # (Auto) 0.6 x10E3/uL (0.0-0.8) 03/16/23 15:06 Eos # (Auto) 0.1 x10E3/uL (0.0-0.45) 03/16/23 15:06 Baso # (Auto) 0.1 x10E3/uL (0.0-0.2) 03/16/23 15:06 Monocyte Dist Width 18.90 % (0.00-20.00) 03/16/23 15:06 PHA Creatinine Clear 50.27 03/16/23 15:06 Sodium 128 mmol/L (136-145) L 03/16/23 15:06 Potassium 4.2 mmol/L (3.5-5.1) 03/16/23 15:06 Chloride 98 mmol/L (98-107) 03/16/23 15:06 Carbon Dioxide 22.7 mmol/L (21.0-31.0) 03/16/23 15:06 Anion Gap 11.5 mEq/L (6.0-15.0) 03/16/23 15:06 BUN 12 mg/dL (7-25) 03/16/23 15:06 Creatinine 0.66 mg/dL (0.60-1.20) 03/16/23 15:06 Est GFR (CKD-EPI) > 60.0 mL/Min 03/16/23 15:06 Glucose 105 mg/dL (70-100) H 03/16/23 15:06 Calcium 9.4 mg/dL (8.6-10.3) 03/16/23 15:06 Total Bilirubin 0.6 mg/dl (0.3-1.0) 03/16/23 15:06 AST 17 U/L (13-39) 03/16/23 15:06 ALT 11 U/L (7-52) 03/16/23 15:06 Alkaline Phosphatase 82 U/L (34-104) 03/16/23 15:06 Total Creatine Kinase 43 U/L (30-223) 03/16/23 15:06 Troponin I High Sens 4.4 pg/mL (0.0-15.0) 03/16/23 15:06 B-Natriuretic Peptide 34.0 pg/mL (5-100) 03/16/23 15:06 Total Protein 7.8 gm/dL (6.4-8.9) 03/16/23 15:06 Albumin 4.8 gm/dL (3.5-5.7) 03/16/23 15:06 Globulin 3.0 gm/dL 03/16/23 15:06 Albumin/Globulin Ratio 1.6 03/16/23 15:06 Urine Color Yellow (Yellow) 03/16/23 17:02 Urine Appearance Clear (Clear) 03/16/23 17:02 Urine pH 7.0 (5.0-9.0) 03/16/23 17:02 Ur Specific [place] 1.012 (1.001-1.030) 03/16/23 17:02 Urine Protein Negative mg/dL (Negative) 03/16/23 17:02 Urine Glucose (UA) Normal mg/dL (Normal) 03/16/23 17:02 Urine Ketones Negative (Negative) 03/16/23 17:02 Urine Occult Blood Negative (Negative) 03/16/23 17:02 Urine Nitrite Negative (Negative) 03/16/23 17:02 Urine Bilirubin Negative (Negative) 03/16/23 17:02 Urine Urobilinogen Normal mg/dL (Normal) 03/16/23 17:02 Ur Leukocyte Esterase 1+ (Negative) H 03/16/23 17:02 Urine RBC 1-2 /HPF (0-4) 03/16/23 17:02 Urine WBC 1-2 /HPF (0-4) 03/16/23 17:02 Ur Squamous Epith Cells None seen /HPF (0-2) 03/16/23 17:02 Urine Bacteria None seen (None Seen) 03/16/23 17:02 Hyaline Casts None seen /LPF (0-8) 03/16/23 17:02 Digoxin 0.4 ng/mL (0.9-2.0) L 03/16/23 15:06 SARS-CoV-2 Rap RNA(RT-PCR) Negative (Negative) 03/16/23 15:50 Microbiology Results Micro: Microbiology - Results from entire visit 03/16/23 15:50 Nasopharyngeal SARS-CoV-2, Influenza & RSV (PCR) - Final Assessment & Plan Assessment/Plan (1) Pre-syncope: (2) Hyponatremia: Plan 1. Suspected syncopal episode, with underlying history of nonischemic cardiomyopathy with ejection fraction 25% by echocardiogram in June 2022, patient denies any underlying coronary artery disease no cardiac stents in the past EKG showed old left bundle branch block with PVCs For now placed on telemetry, check electrolytes, continue to rule out any significant arrhythmias I will ask cardiology evaluate It seems like patient has been following with cardiology and recently ARB's been stopped, and replaced with some other medication, unsure which 1, unable toafford Entresto due to high jacinto We will try to get medical records from 2. Acute on chronic hyponatremia, probably just SIADH I do not suspect the reason for her syncopal episode Will consult nephrology 3. Chronic heart failure with reduced ejection fraction, currently compensated Continue with beta-blockers and digoxin, Lasix, hydralazine and nitrates Valsartan recently was stopped 4. DVT prophylaxis Lovenox The patient care was discussed with the patient the patient's family at the bedside. Patient is DNR CCA withintubation IP vs OBS Justification Based on differential dx, clinical care plan, and risk of adverse events, if untreated, in my clinical judgement this patient requires an acute care setting as: OBSERVATION because of an expectation of an under 2 midnight stay. Estimated length of stay (# of days): 2 Documented By: Phyllis Burciaga MD 03/16/232013 Signed By: <Electronically signed by Phyllis Burciaga MD> 03/17/23 [facility] Work Phone: 1(325) 502-643012-23-2023 Consult note Author Toya Pack [facility] March 17, 2023 3:07pm Note Date/Time March 17, 2023 11:56am [facility] [address] [place] [address] Nephrology Consult Note Signed Patient: Arianna Martinez MR#: [id number] : 1950 Acct:[id number] Age/Sex: 72 / F Adm Date: 3 Loc: Room: [address] [place] [address] Type: ADM INOo Attending Dr: Phyllis Burciaga MD Copies to: MD Phyllis Hector MD Valerie J Castillo NP-C~ Providers Consult Date: 03/17/23 Requesting Provider: Phyllis Burciaga MD Primary Care Provider: YAHIR Martinez HPI Reason for Consult: Hyponatremia management History of Present Illness: This is a 72-year-old female with a medical history of chronic hyponatremia, HTN, CHF, depression was presented for syncope. Patient on evaluation in the emergency room was found to have serum sodium 128 mmol/L. Patient has a historyof CHF and reported that that she was taking Lasix in the past but was taken offby her aqua ammonia operator Dr. Mosquera. 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 Her serum sodium usuallyruns in the high 120s to 130s. Nephrology is consulted for hyponatremia management. Patient in the emergency room was given normal saline 500 mL bolus. Nephrology is consulted for hyponatremia management. Patient was seen and examined bedside she is feeling better denies any chest pain palpation cough or shortness of breath. Review of Systems Review of Systems All other systems reviewed & are negative unless noted below or in HPI Review of systems: Cardiovascular: denies any chest pain, palpitation Pulmonary: denies any cough, hemoptysis Gastrointestinal: denies any nausea, vomiting, diarrhea Neurological :denies any headache, numbness, weakness Endocrine: denies any polyuria, polydipsia Dermatological: denies any itching or rash [facility] Medical History (Updated 03/17/23 @ 15:05 by Toya Pack MD) CHF (congestive heart failure) Problem List clean-up per request of Phys. EHR Cmte Depression Problem List clean-up per request of Phys. EHR Cmte Hyponatremia Problem List clean-up per request of Phys. EHR Cmte Surgical History Hx of arthroscopy of left knee Problem List clean-up per request of Phys. EHR Cmte Social History Smoking Status: Never smoker Substance Use Type: None Meds Medications & Allergies Allergies No Known Allergies Allergy (Verified 03/16/23 13:11) Home Medications carvedilol 6.25 mg tablet 25 mg PO BID 07/04/22 [History Confirmed 03/16/23] digoxin 125 mcg (0.125 mg) tablet 125 mcg PO DAILY 03/16/23 [History Confirmed 03/16/23] hydralazine 25 mg tablet 25 mg PO TID 03/16/23 [History Confirmed 03/16/23] isosorbide dinitrate 10 mg tablet 10 mg PO BID 03/16/23 [History Confirmed 03/16/23] potassium chloride 20 mEq tablet,extended release 20 meq PO BID 03/16/23 [History Confirmed 03/16/23] sertraline 50 mg tablet 50 mg PO DAILY 03/16/23 [History Confirmed 03/16/23] valsartan 80 mg tablet 80 mg PO DAILY 03/16/23 [History Confirmed 03/16/23] Active Medications: Active Medications Acetaminophen (Acetaminophen 325 Mg Tablet) 650 mg PO Q4H PRN PRN Reason: Pain Scale 1 - 5 Stop: 03/15/24 20:24 Last Admin: 03/17/23 11:10 Dose: 650 mg Carvedilol (Carvedilol 25 Mg Tablet) 25 mg PO BID [facility] Stop: 03/15/24 20:59 Last Admin: 03/17/23 08:00 Dose: 25 mg Digoxin (Digoxin 125 Mcg Tablet) 125 mcg PO DAILY [facility] Stop: 03/16/24 08:59 Docusate Sodium (Docusate 100 Mg Capsule) 200 mg PO BID PRN PRN Reason: Constipation Stop: 03/15/24 20:24 Enoxaparin Sodium (Enoxaparin 40 Mg/0.4 Ml Syringe) 40 mg SUBCUT DAILY@1000 [facility] Stop: 03/16/24 09:59 Last Admin: 03/17/23 09:38 Dose: 40 mg Furosemide (Furosemide 20 Mg Tablet) 20 mg PO DAILY.8A [facility] Stop: 03/16/24 07:59 Last Admin: 03/17/23 07:59 Dose: 20 mg Hydralazine HCl (Hydralazine 25 Mg Tablet) 25 mg PO TID [facility] Stop: 03/15/24 21:59 Last Admin: 03/17/23 08:00 Dose: 25 mg Hydralazine HCl (Hydralazine 20 Mg/Ml Vial) 10 mg IV-PUSH Q4H PRN PRN Reason: if SBP > 185 Stop: 03/15/24 20:24 Magnesium Sulfate (Magnesium Sulf 2gm-*Swfi*) 2 gm in 50 mls @ 25 mls/hr IV ONCE ONE Stop: 03/17/23 11:59 Last Admin: 03/17/23 09:38 Dose: 25 mls/hr Isosorbide Dinitrate (Isosorbide Dinitrate 10 Mg Tablet) 10 mg PO BID [facility] Stop: 03/15/24 20:59 Last Admin: 03/17/23 08:00 Dose: 10 mg Potassium Chloride (Potassium Chloride Er 20 Meq Tab.Er.Prt) 20 meq PO BID [facility] Stop: 03/15/24 20:59 Last Admin: 03/17/23 07:59 Dose: 20 meq Sertraline HCl (Sertraline 50 Mg Tablet) 50 mg PO DAILY [facility] Stop: 03/16/24 08:59 Last Admin: 03/17/23 08:02 Dose: 50 mg Sodium Chloride (Sodium Chloride 0.9 % 10 Ml Syringe) 0 ml IV-PUSH PRN PRN PRN Reason: Flush Stop: 03/15/24 13:10 Last Admin: 03/16/23 15:37 Dose: 10 ml Exam Physical Exam Vital Signs: Temp Pulse Resp BP Pulse Ox O2 Del Method 97.9 F 62 18 123/65 95 Room Air 03/17/23 11:05 03/17/23 11:05 03/17/23 11:05 03/17/23 11:05 03/17/23 11:05 03/17/23 11:05 Narrative: General: Appears comfortable and not in distress Heart: S1-S2, no rub Lung: Bilateral air entry, no wheezing or crackles Abdomen: Soft, positive bowel sounds Extremities: No edema, no cyanosis Head: Atraumatic, normocephalic Ear: No gross hearing Deficit or external ear redness Eyes: No pallor or redness Neck: No JVD or visible mass Skin: No rashes , warm to touch [employer]: Awake,Alert, following simple command Musculoskeletal: No joint swelling or limitation of movement Psychiatric: Cooperative, normal mood and affect Results Labs 03/17/23 06:00 03/17/23 06:00 Labs: 03/16/23 03/16/23 03/17/23 15:06 17:02 06:00 BUN 12 8 Creatinine 0.66 0.62 Albumin 4.8 Urine Color Yellow Urine Appearance Clear Urine pH 7.0 Ur Specific [place] 1.012 Urine Protein Negative Urine Glucose (UA) Normal Urine Ketones Negative Urine Occult Blood Negative Urine Nitrite Negative Ur Leukocyte Esterase 1+ H Urine RBC 1-2 Urine WBC 1-2 Urine Bacteria None seen Radiology Impressions Impressions - last 24 hours: Impressions Chest X-Ray 03/16/23 14:50 IMPRESSION: Continued cardiomegaly and hilar vascular congestion. Interstitialchanges may represent mild pulmonary edema. Impression dictated by: Darryn Brown M.D.03/16/2023 3:53 PM Dictation Location: [place] [address] 03/16/23 14:50 IMPRESSION: No acute findings. Impression dictated by: Darryn Brown M.D.03/16/2023 3:44 PM Dictation Location: [place] [address] Any impression(s) listed above is documentation that was entered by the reading physician into a diagnostic report(s) for Arianna Martinez. I have reviewed the report(s) and am incorporating any findings in the treatment plan of this patient where applicable. A&P - Nephrology Assessment/Plan (1) Hyponatremia: Assessment/Problem Details: She has a chronic hyponatremia due to the SIADH likely related to the medication. Serum sodium is within the acceptable range. (2) Pre-syncope: Assessment/Problem Details: Patient presents with presyncope. Cardiology has been consulted. (3) HTN (hypertension): Assessment/Problem Details: Blood pressure is controlled. She takes carvedilol, digoxin, hydralazine and Imdur and valsartan. (4) CHF (congestive heart failure): Assessment/Problem Details: She has a history of chronic systolic congestive heart failure. Her echocardiogram in June 2022 showed EF 25%. She follows with cardiology currently does not take any Lasix. She appears to be well compensated. Plan * Her serum sodium is within the acceptable range. She does not need any salt tablet or urea. * Continue fluid restriction 1200 mL. * Patient reported she is no longer taking Lasix. Will defer this decision to the primary hospitalist team or cardiology about Lasix. * Okay to continue sertraline from renal standpoint. * Check serum sodium daily with renal function monitoring. * Thanks for the consult. Will continue follow with you. Please feel free to call us with any question. Documented By: Toya Pack MD 03/17/23 1156 Signed By: <Electronically signed by Toya Pack MD> 03/17/23 0204 [facility] Work Phone: 1(233) 894-901912-11-2023 History of Present illness Narrative* Ale Mosquera MD - 03/05/2023 11:45 AM EST Most recently seen in November 2022 at which time medication changes were made. She is accompanied by her daughter to the office she has seen nephrology she continues to have issues with hyponatremia reviewed laboratory data from December sodium hovers between 125 and 128 potassium is at target and GFR is greater than 60 Subjective : Apparently her blood pressure is labile, and at times although rarely it can drop into the 80s systolic, however she is not usually symptomatic with this when her sodium level drops however she gets confused. She reports that a prescription was called in for low sodium, but it was prohibitively expensive. She does not complain of any shortness of breath orthopnea or sudden bursts of shortness of breath. Objective Wt Readings from Last 3 Encounters: 10/16/22 56.7 kg (125 lb) 09/04/22 56.7 kg (125 lb) 07/17/22 54 kg (119 lb) Physical Exam: GENERAL APPEARANCE: in no acute distress. CHEST: Symmetric and non-tender. INTEGUMENT: Skin warm and dry HEENT: No gross abnormalities identified.No pallor or scleral icterus. NECK: Supple, no JVD, no bruit. NEURO/PSHCY: Alert and oriented x3; appropriate behavior and responses and responses LUNGS: Clear to auscultation bilaterally; normal respiratory effort. HEART: Rate and rhythm regular with no evident murmur; no gallop appreciated. ABDOMEN: Soft, non tender. MUSCULOSKELETAL: No gross deformities. EXTREMITIES: Warm There is no edema noted. Meds: Current Outpatient Medications Medication Instructions carvedilol (COREG) 12.5 mg, oral, 2 times daily digoxin (Lanoxin) 125 MCG tablet TAKE 1 TABLET BY MOUTH ONCE DAILY 3 DAYS A WEEK. melatonin 10 mg tablet Melatonin Active 10 MG PO Bedtime July 04, 2022 12:00am potassium chloride CR 20 mEq ER tablet 20 mEq, oral, Daily valsartan (DIOVAN) 80 mg, oral, Daily No Known Allergies LABS: Reviewed comprehensive profile from December 2022. Problem List: Patient Active Problem List Diagnosis Date Noted Abnormal EKG 03/02/2023 CHF (NYHA class II, ACC/AHA stage C) ([facility]) 03/02/2023 Benign hypertensive heart disease with heart failure ([facility]) 03/02/2023 Hypokalemia 03/02/2023 Hyponatremia 03/02/2023 LBBB (left bundle branch block) 03/02/2023 Stage 3b chronic kidney disease ([facility]) 03/02/2023 Acute systolic heart failure ([facility]) 03/02/2023 Assessme 1. Nonspecific intraventricular conduction block, QRS duration 140 ms on EKG 07/17/2022 2. Chronic systolic left heart failure related to nonischemic cardiomyopathy, functional class II 3. Tendency for hyponatremia, associated with symptoms of mental fog/confusion 4. Hypertension, labile, at times blood pressure reportedly goes down into the 80s, but she does not get symptomatic 5. Nonischemic myocardial injury-subsequent visit 6. Echocardiogram June 2022-LVEF 25% abnormal septal motion consistent with left bundle branch block global hypokinesis normal RV systolic function trace tricuspid regurgitation aortic sclerosis mitral sclerosis normal IVC, left atrial diameter 3.5 cm, left atrial volume index 26 mm per metered squared 7. Echocardiogram January 2022-LVEF 35 to 40% left atrial volume index 30 mm per metered squared LV end-systolic dimension 3.9 cm left atrial volume index 30.2 mm per metered squared 8. Entresto prohibitively expensive. 9. GFR greater than 60 creatinine clearance 48 6. Nephrology had recommended discontinuation of sertraline because it could be contributory to hyponatremia, patient has chosen to stay on this medication 7. Previous cardiology notes suggest that patient probably had Takotsubo for her cardiomyopathy, mid ventricular variant 8. Patient has had a cardiac catheterization at an outside facility around June 2021, and based onthe reports there was no coronary artery disease. Takotsubo cardiomyopathy was suspected. I have since then reviewed notes, and although the cardiac catheterization report is not there, assessment was that patient had nonischemic cardiomyopathy, presumably Takotsubo 9. Echocardiogram September 2022-LVEF 45 to 50%, abnormal septal motion related to left bundle branch block, significant improvement in LV ejection fraction compared to the study of June 2022 left atrialdiameter 3.3 cm LV end-systolic dimension 3.8 cm 10. Persistent hyponatremia associated with symptoms, following up with nephrology. 11. Dizziness and borderline arterial hypotension, not orthostatic Recommendations: 1. She brought in her medication bottles and those were reviewed. 2. Blood pressure in the 80s systolic is not concerning as long as patient is not symptomatic. 3. As far as the hyponatremia goes, I will discontinue the Diovan, and switch her to hydralazine nitrate combination. Patient and daughter are in agreement with this 4. Reiterated that carvedilol is a twice daily medication and should be taken as such. Current doseis 25 mg p.o. twice daily 5. Hydralazine 25 mg p.o. 3 times a day 6. Isosorbide dinitrate 20 mg p.o. twice daily 7. Follow-up in 4 to 6 weeks, sooner if interval problems arise No orders of the defined types were placed in this encounter. Follow up : 6 weeks Ale Mosquera MD [facility] Work Phone: 1(690) 438-672112-11-2023 Instructions* Patient Instructions* Estefany Anna CMA - 03/05/2023 11:45 AM EST Please bring all medicines, vitamins, and herbal supplements with you when you come to the office. Prescriptions will not be filled unless you are compliant with your follow up appointments or have a follow up appointment scheduled as per instruction of your physician. Refills should be requested at the time of your visit. [facility] Work Phone: [phone]) 406-847310-31-2023 Evaluation note* Encounter Date Diagnosis Assessment Notes Treatment Notes Treatment Clinical Notes Dec, Hyponatremia (ICD-10 - E87.1) Likely from heart failure and probably SIADH induced by SSRI. Serum sodium level 127 mmol/L. Patient asymptomatic from hyponatremia. Currently on Lasix 10 mg p.o. daily with a fluid restriction 40-45 ounces. I will add urea 15 g p.o. daily. Follow-up with the patient in 4 months Dec, Systolic heart failure, unspecified HF chronicity (ICD-10 - I50.20) Seems compensating. Follows with the cardiology clinic. Last ejection fraction 45 %.. Follows with cardiology clinic. Seems compensated from cardiology standpoint Dec, Anemia, unspecified type (ICD-10 - D64.9) Hemoglobin was slightly low during hospitalization at 11.5 g deciliter. Hemoglobin this visit is within normal limits [employer] Other 04-16-2023 Chief complaint Narrative - [facility] [place] [facility] 250 DO Work Phone: Consult note Author Ernesto Polo [facility] March 17, 2023 3:22pm Note Date/Time March 17, 2023 3:15pm [facility] [address] [place] [address] Cardiology Consult Note Signed Patient: Arianna Martinez MR#: [id number] : 1950 Acct:[id number] Age/Sex: 72 / F Adm Date: 3 Loc: Room: [address] [place] [address] Type: ADM INOo Attending Dr: Phyllis Burciaga MD Copies to: MD Ernesto Pappas MD Valerie J Castillo NP-C~ Cardiology HPI History of Present Illness Consult Date: 03/17/23 Reason for Consult: I have been asked by the patient's hospital medicine service to see Mrs. Martinez in consultation for opinion and recommendations regarding presyncopal episode inthe setting of known cardiomyopathy with moderate to severe baseline resting left ventricular systolic dysfunction HPI: Ms. Matrinez is a 72 year old female with a known history of nonischemic cardiomyopathy ejection fraction at baseline approximately 25% who was in her normal state of health until yesterday when after standing up from sitting on her couch she felt lightheaded and dizzy. She had to sit down and felt like shewas near passing out. She denies leroy syncope. She denies associated chest pain chest pressure or other anginal symptoms. She denies any shortness of breath dyspnea on exertion orthopnea or paroxysmal nocturnal dyspnea she denies any lower extremity edema or or recent unusual weight gain. Patient states thatshe does have chronic hyponatremia and has been troubled by orthostatic symptomsin the past which has been attributed to the hyponatremia. She has been told not to drink too much water or other fluids as it is would worsen her hypotension natremia so she worries that she occasionally becomes dehydrated. Since admission the patient has felt well. There is been no recurrent presyncopal or syncopal events. Systolic blood pressures range from 10 1-1 32. Patient has had no orthostatic symptoms. Serial troponins have been negative. BNP is normal at 34. I am now consulted for further cardiac evaluation and management. Of note the patient recently saw her primary aqua ammonia operator Dr. Ale Mosquera about 2 weeks ago at which time her ARB (valsartan) was discontinued. Review of Systems Review of Systems All other systems reviewed & are negative unless noted below or in HPI [facility] Medical History (Updated 03/17/23 @ 15:19 by Ernesto Polo MD) CHF (congestive heart failure) Problem List clean-up per request of Phys. [facility] Problem List clean-up per request of Phys. [facility] Hyponatremia Problem List clean-up per request of Phys. [facility] Surgical History Hx of arthroscopy of left knee Problem List clean-up per request of Phys. [facility] Social History Smoking Status: Never smoker Substance Use Type: None Meds Medications and Allergies Allergies No Known Allergies Allergy (Verified 03/16/23 13:11) Home Medications carvedilol 6.25 mg tablet 25 mg PO BID 07/04/22 [History Confirmed 03/16/23] digoxin 125 mcg (0.125 mg) tablet 125 mcg PO DAILY 03/16/23 [History Confirmed 03/16/23] hydralazine 25 mg tablet 25 mg PO TID 03/16/23 [History Confirmed 03/16/23] isosorbide dinitrate 10 mg tablet 10 mg PO BID 03/16/23 [History Confirmed 03/16/23] potassium chloride 20 mEq tablet,extended release 20 meq PO BID 03/16/23 [History Confirmed 03/16/23] sertraline 50 mg tablet 50 mg PO DAILY 03/16/23 [History Confirmed 03/16/23] valsartan 80 mg tablet 80 mg PO DAILY 03/16/23 [History Confirmed 03/16/23] Exam Physical Exam Vital Signs: Temp Pulse Resp BP Pulse Ox O2 Del Method 97.9 F 62 18 123/65 95 Room Air 03/17/23 11:05 03/17/23 11:05 03/17/23 11:05 03/17/23 11:05 03/17/23 11:05 03/17/23 11:05 Const General: healthy appearing, comfortable and no acute distress Nutritional Appearance: average body habitus Orientation: alert, awake and oriented x3 HEENT Head: normocephalic and atraumatic Face and sinus: face symmetric Mouth: moist mucous membranes abnormal Teeth and gingiva: fair dentition Eyes Conjunctivae: conjunctivae normal Sclera: sclerae normal Pupils: PERRL and accommodation normal Direct ophthalmoscopy: no photophobia Neck Neck: no lymphadenopathy and supple Neck mass: No Thyroid: thyroid normal Carotids: normal carotid upstroke Lymphatic: no lymphadenopathy noted Chest Chest palpation & inspection: normal inspection of the chest Resp Effort & Inspection: normal respiratory effort, able to speak in complete sentences and abnormal respiratory pattern Auscultation: clear to auscultation bilaterally Cardio Jugular venous pressure: no JVD Palpation: normal PMI Rate: regular rate Rhythm: regular rhythm Heart Sounds: S1 normal, S2 normal, normal, physiologic split S2 (Paradoxically split S2) and gallop S4 gallop Pulses: radial pulses present, femoral pulses present, posterior tibial pulses present and dorsalis pedis present GI Inspection: normal to inspection Skin General: no rashes or lesions noted Neuro General: patient alert, patient awake, patient oriented x3 and no focal motor deficits Cranial Nerves: CN's II-XII intact bilaterally Speech: speech normal Motor: muscle tone normal throughout Sensory Exam: no sensory deficits noted Extrem General: normal to inspection Psych Appearance: grossly normal Mental Status: mental status grossly normal Mood: congruent mood Affect: normal affect Speech and Movement: speech and movement normal Attitude: cooperative Thought Process: normal Thought Content: normal Insight: insight good Judgment: judgment good Results Labs 03/17/23 06:00 03/17/23 06:00 Lab results: Cardiac Enzymes 03/16/23 03/16/23 03/16/23 Range/Units 15:06 15:06 15:06 AST 17 (13-39) U/L Total Creatine Kinase 43 (30-223) U/L B-Natriuretic Peptide 34.0 (5-100) pg/mL CBC 03/16/23 03/17/23 Range/Units 15:06 06:00 RBC 4.16 3.56 L (3.60-5.00) X10E6/uL Hgb 12.9 11.0 L (11.8-15.4) g/dL Hct 38.1 32.2 L (34.0-46.4) % Plt Count 396 341 (150-450) x10E3/uL Neut # (Auto) 8.6 H 4.6 (1.8-7.7) x10E3/uL Lymph # (Auto) 1.6 1.5 (1.00-4.8) x10E3/uL Humphreys # (Auto) 0.6 0.8 (0.0-0.8) x10E3/uL Eos # (Auto) 0.1 0.1 (0.0-0.45) x10E3/uL Baso # (Auto) 0.1 0.0 (0.0-0.2) x10E3/uL Comprehensive Metabolic Panel 03/16/23 03/17/23 Range/Units 15:06 06:00 Sodium 128 L 130 L (136-145) mmol/L Potassium 4.2 4.1 (3.5-5.1) mmol/L Chloride 98 102 (98-107) mmol/L Carbon Dioxide 22.7 21.8 (21.0-31.0) mmol/L BUN 12 8 (7-25) mg/dL Creatinine 0.66 0.62 (0.60-1.20) mg/dL Glucose 105 H 97 (70-100) mg/dL Calcium 9.4 8.6 (8.6-10.3) mg/dL AST 17 (13-39) U/L ALT 11 (7-52) U/L Alkaline Phosphatase 82 (34-104) U/L Total Protein 7.8 (6.4-8.9) gm/dL Albumin 4.8 (3.5-5.7) gm/dL Intake and Output 03/16/23 03/17/23 03/17/23 23:59 07:59 15:59 Intake Total 550 / 550 100 / 100 Output Total 800 / 800 Balance -250 / -250 100 / 100 Intake: IV 500 / 500 Sodium Chloride 0.9% 500 ml 500 500 / 500 ml @ 999 mls/hr IV .Q31M ONE Rx#:[id number] Oral 50 / 50 100 / 100 Output: Urine 800 / 800 Other: # Unmeasured Voids 1 2 # Bowel Movements 0 0 1 Weight 63.3 kg 58 kg Date of Last Bowel Movement 03/16/23 03/16/23 Patient Weight 03/17/23 23:59 Weight 58 kg EKG Interpretations EKG Attestation EKG: I reviewed this ECG and interpreted as documented below: Dysrhythmias Sinus rhythms and dysrhythmias: sinus rhythm Blocks, axis, hypertrophy, ST abn AV and intraventricular conduction: left bundle branch block (fixed/intermittent, complete/incomplete) AR, pacemaker, normal Normal tracing: no change compared to previous tracing A&P - Cardiology (1) Pre-syncope: Assessment/Problem Details: Symptoms clinically appear to be orthostatic in etiology. Telemetry analysis shows no evidence of dysrhythmias or pauses which would cause presyncope or syncope. In the setting of chronic hyponatremia the patient is on multiple medications the combination of which can certainly cause orthostasis such as I think the patient experienced yesterday. Blood pressure is now stable. Plan: I see no indication for ongoing in-hospital evaluation. Recommend discharge to home today on current guideline directed medical therapy for heart failure with reduced ejection fraction Code(s): R55 - Syncope and collapse (2) Heart failure with reduced ejection fraction: Assessment/Problem Details: Patient looks very good from a heart failure standpoint. She is clinically euvolemic and well compensated. BNP is normal at 34. NYHA Ia. Plan: As above, I think the patient is clinically stable and safe for discharge to home today. Maintain current guideline directed medical therapy for heart failure with reduced ejection fraction. No ARB. Please make sure that the patient has follow-up with her primary aqua ammonia operator Dr. Ale Mosquera within 3 weeks. Thank you very much for this kind consultation and for allowing me to participate in the care of this delightful patient. Code(s): I50.20 - Unspecified systolic (congestive) heart failure Documented By: Ernesto Polo MD 03/17/23 1513 Signed By: <Electronically signed by Ernesto Polo MD> 03/17/23 1522 [facility] Work Phone: Evaluation noteNo assessment information available [facility] Work Phone: Evaluation note* Diagnosis CHF (NYHA class II, ACC/AHA stage C) ([facility]/HCC)- Primary Congestive heart failure, unspecified Benign hypertensive heart disease with heart failure ([facility]/HCC) LBBB (left bundle branch block) Other left bundle branch block Hypernatremia Hyperosmolality and/or hypernatremia Hyponatremia Hyposmolality and/or hyponatremia documented in this encounter [facility] Work Phone: Evaluation note* Diagnosis Onset Date Resolution Status Hyponatremia acute Pre-syncope acute [facility] Work Phone: Evaluation note* Diagnosis Onset Date Resolution Status CHF (congestive heart failure) acute Heart failure with reduced ejection fraction acute HTN (hypertension) acute Hyponatremia acute Pre-syncope acute [facility] Work Phone: Evaluation note* Diagnosis CHF (NYHA class II, ACC/AHA stage C) ([facility]/HCC) Congestive heart failure, unspecified Benign hypertensive heart disease with heart failure ([facility]/HCC) LBBB (left bundle branch block) Other left bundle branch block Stage 3b chronic kidney disease ([facility]/HCC) Medication course changed documented in this encounter [facility] Work Phone: Evaluation note* Diagnosis Flank pain- Primary Abdominal pain, unspecified site documented in [facility]* Diagnosis Medicare annual wellness visit, subsequent- Primary Chronic systolic heart failure ([facility]-HCC) Chronic systolic heart failure Ventricular tachycardia (CMS-HCC) Paroxysmal ventricular tachycardia Current moderate episode of major depressive disorder without prior episode ([facility]) Atherosclerotic heart disease of [place] coronary artery with other forms of angina pectoris ([facility]) Stage 3b chronic kidney disease ([facility]) Mixed hyperlipidemia Flank pain Abdominal pain, unspecified site documented in this encounter [facility]* Diagnosis Mixed hyperlipidemia- Primary [facility] N[facility]ative - Reported* Type Description Date Medical History hyperlipidemia Medical History HTN Medical History anxiety Medical History insomnia Medical History HYPONATREMIA Medical History CHRONIC SYSTOLIC HEART FAILURE Medical History DEPRESSION Surgical History right knee Hospitalization History childbirths Hospitalization History ABNORMAL SODIUM LEVELS A ND CHF 06/2022 Hospitalization History HEART ISSUES 2019 [employer] Other History of Present illness Narrative* 72-year-old female with hypertension congestive heart failure functional class II LV systolic dysfunction nonischemic cardiomyopathy presents for follow-up. * Accompanied by daughter * Reports feeling well, activity level is increasing, appetite is increasing, energy level is increasing. * 10 pound weight gain since last office visit not water weight, patient says that her appetite is better and she is eating more food, when she came from the hospital she was nauseated and did not feellike eating. * Laboratory data from July 2022 reviewed potassium was 3.9 GFR normal sodium 133 * Participating in cardiac rehabilitation. Says that at times her blood pressure is elevated, but postexercise it goes into the 90s at times, no presyncope syncope or falls. * On current medical regimen sodium has improved to 133. * Multiple caffeinated beverages probably at least 10 a day, I suggested that she cut back a little bit at least. Overall she is doing well. * Assessment: * 1. Nonspecific intraventricular conduction block, QRS duration 140 ms on EKG 07/17/2022 * 2. Chronic systolic left heart failure related to nonischemic cardiomyopathy, functional class II * 3. Tendency for hyponatremia * 4. Hypertension * 5. Nonischemic myocardial injury-subsequent visit * 6. Echocardiogram June 2022-LVEF 25% abnormal septal motion consistent with left bundle branch block global hypokinesis normal RV systolic function trace tricuspid regurgitation aortic sclerosis mitral sclerosis normal IVC, left atrial diameter 3.5 cm, left atrial volume index 26 mm per metered squared * 7. Echocardiogram January 2022-LVEF 35 to 40% left atrial volume index 30 mm per metered squared LV end-systolic dimension 3.9 cm left atrial volume index 30.2 mm per metered squared * 8. Entresto prohibitively expensive. * 9. GFR greater than 60 creatinine clearance 48 * 6. Nephrology had recommended discontinuation of sertraline because it could be contributory to hypokalemia * 7. Previous cardiology notes suggest that patient probably had Takotsubo for her cardiomyopathy, mid ventricular variant * Patient is clinically doing better although her LVEF from June 2022 was only 25%. She does have a left bundle branch block and hence would be a candidate for biventricular ICD, but we have not maximized her medical therapy for congestive heart failure. * Due to hypo natremia, will not use spironolactone. * Entresto prohibitively expensive. * Recommendations: * 1. Orthostatics were checked and she is not orthostatic * 2. Increase carvedilol to 12.5 mg p.o. twice daily * 3. Decrease furosemide to 10 mg daily * 4. After 2 weeks increase carvedilol further to 25 mg p.o. twice daily * 5. Continue cardiac rehabilitation * 6. Follow-up with me in 4 to 6 weeks sooner if interval problems arise -[facility] DO Work Phone: History of Present illness Narrative* Patient with systolic left heart failure is accompanied by daughter to the office. Patient is progressing well in cardiac rehabilitation. She started doing 5 minutes of activity now is up to 20 minutes of activity, and daughter says she can see a physical improvement. Orthopnea PND or lower extremity edema. * Vital signs reviewed. * She is on maximum recommended dosage for carvedilol, we are unable to increase the losartan at thistime because blood pressure remains on the low side. Also sodium may drop further with up titrationof losartan. * No recent laboratory data available to review. * On 07/31/2022, sodium was 128 and potassium was 4.5 creatinine 0.65 GFR greater than 90. * Assessment: * 1. Nonspecific intraventricular conduction block, QRS duration 140 ms on EKG 07/17/2022 * 2. Chronic systolic left heart failure related to nonischemic cardiomyopathy, functional class II * 3. Tendency for hyponatremia * 4. Hypertension * 5. Nonischemic myocardial injury-subsequent visit * 6. Echocardiogram June 2022-LVEF 25% abnormal septal motion consistent with left bundle branch block global hypokinesis normal RV systolic function trace tricuspid regurgitation aortic sclerosis mitral sclerosis normal IVC, left atrial diameter 3.5 cm, left atrial volume index 26 mm per metered squared * 7. Echocardiogram January 2022-LVEF 35 to 40% left atrial volume index 30 mm per metered squared LV end-systolic dimension 3.9 cm left atrial volume index 30.2 mm per metered squared * 8. Entresto prohibitively expensive. * 9. GFR greater than 60 creatinine clearance 48 * 6. Nephrology had recommended discontinuation of sertraline because it could be contributory to hypokalemia * 7. Previous cardiology notes suggest that patient probably had Takotsubo for her cardiomyopathy, mid ventricular variant * 8. Patient has had a cardiac catheterization at an outside facility around June 2021, and based onthe reports there was no coronary artery disease. Takotsubo cardiomyopathy was suspected. I do not have the report and this has been requested. * Patient is clinically doing better although her LVEF from June 2022 was only 25%. She does have a left bundle branch block and hence would be a candidate for biventricular ICD, but we have not maximized her medical therapy for congestive heart failure. * Due to hypo natremia, will not use spironolactone. * Entresto prohibitively expensive. * Recommendations: * 1. Digoxin 0.125 mg 3 days a week p.o. * Sunday or Sunday * 2. Basic metabolic profile and BNP level in the near future * 3. Echocardiogram to be repeated in the near future * 4. Initiate EP referral for BiV ICD if LVEF less than 40%. * 5. Follow-up 6 to 8 weeks sooner if interval problems arise. * 6. We will strongly consider discontinuation of Lasix at next office visit based on echo findings. [facility] Work Phone: Hospital Discharge instructions Additional Instructions Follow-up with your primary care doctor Return [facility] ED if develop worsening [facility] Work Phone: Hospital Discharge instructionsAmbulatory Orders* PT/OT/SP OutPatient Referral Time Frame: 1 Day, Location: Determined By Patient Additional Instructions No medication changes have been made. Please take all home medications as directed by your aqua ammonia operator. But because you have not been taking Lasix anymore, I decreased the dose of potassium to once daily. Please check your kidney function and potassium level in 1 week [facility] Work Phone: InstructionsNot on filedocumented in this encounter [facility] SystemInstructions* Attachments The following attachments cannot be sent through Care Everywhere. * Coronary artery disease ([place]) documented in [facility] SystemInstructionsNot on file documented in this encounterProMar[facility] SystemReason for referral (narrative)* Consultation (Routine) - Authorized Specialty Diagnoses / Procedures Referred By Contac t Referred To Contact Cardiology Diagnoses CHF (NYHA class II, ACC/AHA stage C) (CMS/HCC) Benign hypertensive heart disease with heart failure (CMS/HCC) LBBB (left bundle branch block) Procedures Follow Up In Cardiology Ale Mosquera MD [address] [place] [address] Ale Mosquera MD [address] [facility] [address] [place] [address] Referral ID Status Reason Start Date Expiration Date V isits Requested Visits Authorized [id number] Authorized 03/05/2023 03/04/2024 1 1 [facility] Work Phone: Reason for referral (narrative)* Consultation (Routine) - Authorized Specialty Diagnoses / Procedures Referred By Contac t Referred To Contact Cardiology Diagnoses CHF (NYHA class II, ACC/AHA stage C) (CMS/HCC) Benign hypertensive heart disease with heart failure (CMS/HCC) LBBB (left bundle branch block) Stage 3b chronic kidney disease (CMS/HCC) Procedures Follow Up In Cardiology Ale Mosquera MD [address] [place] [address] Ale Mosquera MD [address] [facility] [address] [place] [address] Referral ID Status Reason Start Date Expiration Date V isits Requested Visits Authorized [id number] Authorized 04/05/2023 04/04/2024 1 1 [facility] Work Phone: Summary Purpose Family History No Family History Records FoundUnknown Family Member Name Dates Details Family history of Alzheimer' s disease: Mother(V17.2, Z82.0) Status:Active Family history of lung cance r: Father(V16.1, Z80.1) Status:Active Unknown Family Member Name Dates Details Family history of Alzheimer' s disease: Mother(V17.2, Z82.0) Status:Active Family history of lung cance r: Father(V16.1, Z80.1) Status:Active Unknown Family Member Name Dates Details Family history of Alzheimer' s disease: Mother(V17.2, Z82.0) Status:Active Family history of lung cance r: Father(V16.1, Z80.1) Status:Active Unknown Family Member Name Dates Details Family history of Alzheimer' s disease: Mother(V17.2, Z82.0) Status:Active Family history of lung cance r: Father(V16.1, Z80.1) Status:Active Unknown Family Member Name Dates Details Family history of Alzheimer' s disease: Mother(V17.2, Z82.0) Status:Active Family history of lung cance r: Father(V16.1, Z80.1) Status:Active Unknown Family Member Name Dates Details Family history of lung cance r: Father(V16.1, Z80.1) Status:Active Family history of Alzheimer' s disease: Mother(V17.2, Z82.0) Status:Active Unknown Family Member Name Dates Details Family history of Alzheimer' s disease: Mother(V17.2, Z82.0) Status:Active Family history of lung cance r: Father(V16.1, Z80.1) Status:Active Unknown Family Member Name Dates Details Family history of Alzheimer' s disease: Mother(V17.2, Z82.0) Status:Active Family history of lung cance r: Father(V16.1, Z80.1) Status:Active Unknown Family Member Name Dates Details Family history of Alzheimer' s disease: Mother(V17.2, Z82.0) Status:Active Family history of lung cance r: Father(V16.1, Z80.1) Status:Active Advance Directives No Advanced Directives Records Found Advance Directive Response Recorded Date/ Time Advance Directives No April 24, 2018 12:00pm Advance Directive Response Recorded Date/ Time Advance Directives No April 24, 2018 11:00am Documents on File Type Date Recorded Patient Assistant Service Manager Expl anation DNR Physician Order 07/15/2021 2:25 PM Latest Code Status on File Code Status Date Activated Date Inactivated Comments Full Code 12/11/2021 6:56 PM 12/13/2021 6:44 PM Code Status History Code Status Date Activated Date Inactivated Comments Full Code 10/10/2021 10:36 PM 10/12/2021 5:34 PM Full Code 07/07/2021 10:24 PM 07/08/2021 4:39 PM DNR Comfort Care Arrest (DNR-CCA) [place] 07/06/2021 7:30 AM 07/07/2021 11:30 AM Hospital Course Note MR#: [id number] [facility] Pt. Name: Arianna Martinez Admitted: 08/05/2018 Discharged: 08/07/2018 Date of : 1950 Physician: Raheem Fernandez MD DISCHARGE SUMMARY DATE OF ADMISSION: 08/05/2018 DATE OF DISCHARGE: 08/07/2018 PRIMARY CARE PHYSICIAN: No PCP CONSULTING PHYSICIANS: None ADMITTING DIAGNOSIS: Presyncope DISCHARGE DIAGNOSIS: Presyncope Heart Palpitations Chronic Left bundle branch block Chronic Hyponatremia Type 2 DM- Non insulin dependent Depression Anxiety Disorder CHIEF COMPLAINT: an episode of chest tightness when she was shopping, that was associated with shortness of breath, palpitation and lightheadedness HISTORY OF PRESENT ILLNESS/HOSPITAL COURSE: he presented with an episode of chest tightness when she was shopping, that was associated with shortness of breath, palpitation and lightheadedness, Symptoms improved overt time after admission. She was given was given aspirin x1, 20 mg of Lasix IV, ceftriaxone 1 g IV, and Ativan 1 (more content not included)... Chief Complaint ARIANNA MARTINEZ is being seen for a 2 month follow-up of.ARIANNA MARTINEZ is being seen for a 4 week follow-up of. Chief Complaint and Reason for Visit Chief Complaint dizzyness Chief Complaint dizzy, lightheaded, weakness Reason for Visit Hyponatremia Pre-syncope Chief Complaint dizzy, lightheaded, weakness Reason for Visit CHF (congestive hear t failure) Heart failure with reduced ejection fraction HTN (hypertension) Hyponatremia Pre-syncope Additional Source Comments INFORMATION SOURCE (unrecogn ized section and content) DATE CREATED AUTHOR 11/02/2018 [facility] DATE CREATED AUTHOR AUTHOR'S ORGANIZ ATION 09/01/2022 [facility] DATE CREATED AUTHOR AUTHOR'S ORGANIZ ATION 10/16/2022 [facility] DATE CREATED AUTHOR AUTHOR'S ORGANIZ ATION 12/16/2022 [facility] DATE CREATED AUTHOR AUTHOR'S ORGANIZ ATION 12/16/2022 [employer] DATE CREATED AUTHOR AUTHOR'S ORGANIZ ATION 03/24/2023 [facility] DATE CREATED AUTHOR AUTHOR'S ORGANIZ ATION 04/08/2023 [facility] DATE CREATED AUTHOR AUTHOR'S ORGANIZ ATION 05/07/2023 [facility] DATE CREATED AUTHOR AUTHOR'S ORGANIZ ATION 06/02/2023 [facility] DATE CREATED AUTHOR AUTHOR'S ORGANIZ ATION 06/13/2023 [facility] DATE CREATED AUTHOR AUTHOR'S ORGANIZ ATION 08/03/2023 [facility] Care Teams (unrecognized sec tion and content) Team Status: Active Member Role Status Dates Evi Maradiaga NP-C Primary Care Provider Active Team Status: Inactive Member Role Status Dates Evi Maradiaga NP-C Primary Care Provider Active Aleida Cisneros DO Emergency Provider Active Phyllis Burciaga MD Admit Provider, Attending Provide r Active Toya Pack MD Other Provider Active Ernesto Polo MD Other Provider Active Team Status: Active Member Role Status Dates Evi Maradiaga NP-C Primary Care Provider Active Alieda Cisneros DO Emergency Provider Active Phyllis Burciaga MD Admit Provider, Attending Provide r Active Team Status: Inactive Member Role Status Dates Evi J Maradiaga , [employer]-C Primary Care Provider Active Nishant Lucio DO Emergency Provider Active Director Of Physical Therapy Relationship Specialty Start Date End Date Joe Callejas DO [address], [place] [address] PCP - General 07/17/22 Director Of Physical Therapy Relationship Specialty Start Date End Date Joe Callejas DO [address], [place] [address] PCP - General 07/17/22 Director Of Physical Therapy Relationship Specialty Start Date End Date [facility] [address] [place] [address] PCP - General Family Medicine 07/11/21 Director Of Physical Therapy Relationship Specialty Start Date End Date Evi Maradiaga [facility] [address], [place] [address] PCP - General Family Medicine 07/11/21 Director Of Physical Therapy Relationship Specialty Start Date End Date Evi Maradiaga [facility] [address] [place] [phone] PCP - General Family Medicine 07/11/21 Goals (unrecognized section and content) Goals may be documented in a n alternate sectionNo InformationGoals may be documented in an alternate section REASON FOR VISIT (unrecogniz ed section and content) Reason Comments Follow-up 3 months Reason Comments Follow-up 4-6 weeks Specialty Diagnoses / Procedures Referred By Keesha t Referred To Contact Cardiology Diagnoses CHF (NYHA class II, ACC/AHA stage C) (CMS/HCC) Benign hypertensive heart disease with heart failure (CMS/HCC) LBBB (left bundle branch block) Procedures Follow Up In Cardiology Ale Mosquera MD [address] [facility] [address] [place] [address] Ale Mosquera MD [address] [facility] [address] [place] [address] Referral ID Status Reason Start Date Expiration Date V isits Requested Visits Authorized [id number] Authorized 03/05/2023 03/04/2024 1 1 Reason Comments Annual Exam MAW FOR RECORDS PERTAINING TO PATIENTS WHO ARE OR HAVE BEEN ENROLLED IN A CHEMICAL DEPENDENCY/SUBSTANCEABUSE PROGRAM, SOME INFORMATION MAY BE OMITTED. This clinical summary was aggregated from multiple sources. Caution should be exercised in using it in the provision of clinical care. This summary normalizes information from multiple sources, and as a consequence, information in this document may materially change the coding, format and clinical context of patient data. In addition, data may be omitted in some cases. CLINICAL DECISIONS SHOULD BE BASED ON THE PRIMARY CLINICAL RECORDS. [employer] provides no warranty or guarantee of the accuracy or completeness of information in this document.
[2023-09-18 11:16] LABS: Anion Gap 13.7; BUN Creatinine Ratio 10.3; Calcium 8.5 mg/dL (8.5-10.1); Carbon Dioxide 23.2 mmol/L (21.0-32.0); Chloride 96 mmol/L (98-107); Estimated GFR (African America >60 (>=60); Estimated GFR (Non-African Ame >60 (>=60); Glucose 111 mg/dL (74-106); Potassium 3.9 mmol/L (3.5-5.1); Sodium 129 mmol/L (136-145)
== END 2023-09-18 10:13 | disposition home or self-care (01) ==
LOC: LAB 10:14
PROVIDERS: PCP Family Medicine; Visit Provider Internal Medicine Interventional Cardiology
DX: I50.9 Heart failure, unspecified (principal); Z79.899 Other long term (current) drug therapy
CPT/HCPCS: 36415; 80048

== ENCOUNTER 2024-01-28 09:40 | Outpatient (OUT) | payer MEDICARE, SELFPAY ==
[2024-01-28 10:49] LABS: Albumin Level 3.7 g/dL (3.4-5.0); Anion Gap 17.6; Calcium 8.9 mg/dL (8.5-10.1); Carbon Dioxide 23.2 mmol/L (21.0-32.0); Chloride 93 mmol/L (98-107); Estimated GFR (African America >60 (>=60 mL/min/1.73m^2); Estimated GFR (Non-African Ame >60 (>=60 mL/min/1.73m^2); Glucose 102 mg/dL (74-106); Phosphorus 4.3 mg/dL (2.6-4.7); Potassium 4.8 mmol/L (3.5-5.1); Sodium 129 mmol/L (136-145)
== END 2024-01-28 09:41 | disposition home or self-care (01) ==
LOC: LAB 09:42
PROVIDERS: PCP Family Medicine; Visit Provider Internal Medicine Nephrology
DX: E87.6 Hypokalemia (principal); I11.0 Hypertensive heart disease with heart failure; D64.9 Anemia, unspecified; E87.1 Hypo-osmolality and hyponatremia; I50.20 Unspecified systolic (congestive) heart failure
CPT/HCPCS: 36415; 80069; 83735